=== PATIENT | male | born 1965 | race Caucasian/White ===

== ENCOUNTER 2016-06-28 11:06 | Inpatient (IN) ==
--- NOTE | 2016-06-28 11:21 | Emergency Department Note ---
Disposition Clinical Impression: History of pneumonia, Supratherapeutic INR, Dehydration GI bleed Qualifiers: Gastritis type: unspecified gastritis Anemia Qualifiers: Anemia type: unspecified type Qualified Code(s): D64.9 - Anemia, unspecified Pneumonia Qualifiers: Pneumonia type: due to unspecified organism Laterality: right Lung location: upper lobe of lung Qualified Code(s): J18.9 - Pneumonia, unspecified organism Disposition: Admitted As Inpatient Condition: Critical General Adult HPI - General Chief complaint: ED Nausea/Vomiting/Diarrhea Stated complaint: Vomiting blood Time Seen by Provider: 06/28/16 11:09 Source: patient, EMS Limitations: no limitations Nursing Notes Reviewed: Yes Vital Signs Reviewed: Yes - History of Present Illness HPI Narrative: 50-year-old male presents for evaluation of vomiting blood and dark stools. Patient states he has been having dark stools for the past 3 days. Yesterday started vomiting dark blood yesterday. Patient denies history of liver disease but has done that he quit drinking 2 years ago. Denies any chest pain or shortness breath. No abdominal pain. No fevers. Patient does state that he was recently seen seen in [place] where he had clots of the upper extremities and was started on Coumadin. Patient denies history of upper endoscopy and lower endoscopy. Patient denies any excessive NSAID use or history of ulcers. Pain Scale: 3 - Related Data Home Medications Medication Instructions Recorded Confirmed Creaon 4 tab PO QIDAC 06/02/15 06/03/16 Insulin Glargine [Lantus] 30 unit SQ HS 06/02/15 06/03/16 Omeprazole [PriLOSEC] 40 mg PO DAILY 06/02/15 06/03/16 Insulin LISPRO [HumaLOG] 4 units SQ TIDWM 05/10/16 06/03/16 Previous Rx's Medication Instructions Recorded Albuterol Sulfate [Albuterol 2 puff IH Q4HR PRN #1 hfa.aer.ad 06/03/15 Inhaler] Allergies Allergy/AdvReac Type Severity Reaction Status Date / Time No Known Allergies Allergy Verified 06/03/16 09:12 All systems ED: reviewed and negative except as stated. Constitutional: Reports: as per HPI. Denies: fever Eyes: Reports: as per HPI ENT ED: Reports: as per HPI Cardiovascular: Reports: as per HPI. Denies: chest pain Respiratory: Reports: as per HPI. Denies: cough, dyspnea Gastrointestinal: Reports: as per HPI, hematemesis, melena. Denies: abdominal pain, nausea, vomiting Genitourinary: Reports: as per HPI Musculoskeletal: Reports: as per HPI Integumentary: Reports: as per HPI Neurological: Reports: as per HPI. Denies: headache Psychiatric: Reports: as per HPI Endocrine: Reports: as per HPI Past Medical History - Past Medical History Medical history: Reports: COPD, diabetes, GERD, kidney stones, other Surgical history: Reports: other Psychiatric history: Reports: no psych history - Social History Smoking Status: Current every day smoker Smokeless Tobacco Status: No Alcohol use: Reports: heavy Drug use: Reports: none Physical Exam - General Limitations: no limitations General appearance: alert, in distress, other (Appears chronically ill and malnourished) - Head Head exam: normocephalic, normal inspection - Eye Eye exam: Present: normal appearance, EOMI - ENT ENT exam: normal exam, mucous membranes moist - Neck Neck exam: Present: normal inspection, trachea midline - Chest Chest inspection: Present: normal inspection, symmetric chest wall rise - Respiratory Respiratory exam: Present: normal lung sounds bilaterally. Absent: respiratory distress - Cardiovascular Cardiovascular exam: Present: regular rate, tachycardia - Abdominal Exam Abdominal exam: Present: soft, Non-Tender. Absent: distention, guarding - Rectal Exam Correctional Case Manager present during exam: Yes Rectal exam: Present: normal inspection, heme (+) stool. Absent: hemorrhoids, mass - Extremities Exam Extremities exam: Present: normal inspection. Absent: pedal edema - Expanded Lower Extremity Exam Hip/Pelvis exam: Present: normal inspection, tenderness Upper leg exam: Present: normal inspection Knee exam: Present: normal inspection Lower leg exam: Present: normal inspection Ankle exam: Present: normal inspection Foot/toe exam: Present: normal inspection Neurovascular/Tendon exam: Present: normal capillary refill - Back Exam Back exam: Present: normal inspection - Neurological Exam Neurological exam: Present: alert, oriented X3 - Skin Skin exam: Present: warm, dry, intact, normal color Course Course Narrative: Patient seen and examined. Patient appears to be hypotensive. Patient had gross blood in his stool as well as bright blood without clots. Patient is noted to be alert and mentating properly. Patient initially had difficult access with presentation. PICC team was able to establish a right upper extremity line. Patient is getting lab work, EKG, chest x-ray and attempt to get records from [facility] with recent past hospitalization. - Reevaluation(s) Reevaluation #1: Vascular access team has provided a right upper extremity PICC line. Time: 12:18 Reevaluation #2: Hgb 5.1. Will order PRBCs. Time: 12:24 Reevaluation #3: Patient sitting up in bed. No acute distress. Mentation appropriate responding to IV fluids. Time: 15:17 - Consultations Consultation #1: Spoke with Dr. Brewster who recommended reversal of anticoagulation and monitoring in the ICU. Time: 13:22 Consultation #2: Spoke with Dr. Carreno recommend Protonix drip as well as reversal anticoagulation Time: 13:28 Vital Signs Temperature 97.8 F 06/28/16 11:10 Pulse Rate 124 06/28/16 11:10 Respiratory Rate 17 06/28/16 11:10 Blood Pressure 87/51 06/28/16 11:10 O2 Sat by Pulse Oximetry 100 06/28/16 11:10 Temperature 97.5 F L 06/28/16 15:07 Pulse Rate 118 06/28/16 15:07 Respiratory Rate 18 06/28/16 15:07 Blood Pressure 89/60 06/28/16 15:07 O2 Sat by Pulse Oximetry 97 06/28/16 15:07 Oxygen Delivery Oxygen Delivery Nasal Cannula Procedures - IO Right Tibia Consent Obtained: verbal consent Time Out Performed: Yes Local Anesthetic: lidocaine 2% Amount of anesthesic used (mL): 2 IO Instrument Used to Penetrate the Cortex: battery powered IO drill Patient Tolerated Procedure: well, no complications Complications: none Medical Decision Making - MDM Narrative Medical decision making narrative: 50-year-old male presents after recent admission at [facility] for pneumonia. Patient states that he was admitted [facility] for pneumonia was on a ventilator for several days. Patient also notes he had upper chimney clots at that time. Patient is on adequate hydration with Coumadin. Patient does not follow-up with the primary care physician. Patient's been coming in with several days of GI signs and symptoms with blood dark tarry stools as well as dramatic emesis. Patient has not had any recent scopes upper or lower. Patient was found to be hypotensive on exam. Patient INR came back elevated reversal of anticoagulation is in process with FFP and IV vitamin K. Attempted to contact [facility] for records regarding this patient's recent hospitalization. Patient's records were reviewed prior hospitalization. The patient had sepsis pneumonia had a left upper extremity DVT possibly from midline placement patient has not had follow-up following that hospitalization his INR was elevated. Patient's pneumonia noted from records was in the right upper lobe. Patient had a bronch which ruled out tuberculosis from. 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 Patient's hemoglobin was 5.1. Patient's pain was addressed with mild versus of morphine in the emergency department. Patient has IV fluids. Ordered 3 units of PRBCs as well as for FFP. Protonic drip running. Patient does have a right upper EXT PICC as well as a right lower IO. Patient's blood pressure responded to fluids. Patient was also given a gram of Rocephin in the emergency department. I examined this patient and my medical decision-making was reviewed with the FEATHEREDGE MACHINE OPERATOR/PA/Advanced Practice Nurse/Resident Physician. I agree with the documented findings, disposition and treatment plan as described except to the extent set forth below. Patient presents today with vomiting of bloody [place] the last days also dark-colored stools. History of esophagitis and alcoholism in the past. He said he does not drink now. He is also on "" blood thinners for blood clots on his arms. He denies abdominal pain. He is pale. Blood pressure systolics in the 80s. Establish an IV IV fluids. Blood work CT of his abdomen. He will most likely need admission. He is a tough IV stick he said his last time that the vascular access team our nurses trying to do a bedside midline on him. - Medical Records Medical records reviewed: Yes I reviewed the patient's medical records. Records were obtained from [facility] - Lab Data Lab results reviewed: Yes I reviewed the patient's lab results. Result diagrams: 06/28/16 12:02 06/28/16 11:52 Lab Results 06/28/16 06/28/16 06/28/16 Range/Units 11:40 11:52 12:02 WBC 10.9 (4.3-11.1) K/mcL RBC 1.82 L (4.19-5.50) M/mcL Hgb 5.1 L* (12.9-16.9) g/dL Hct 16.3 L (37.5-50.1) % MCV 89.6 (83.0-100.0) fL MCH 28.0 (28.0-33.3) pg MCHC 31.3 L (31.6-35.5) g/dL RDW 14.5 (11.5-14.5) % Plt Count 571 H (140-400) K/mcL MPV 8.8 L (9.4-12.4) fL Immature Gran % 2.5 (0-4) % Seg Neutrophils % 58.3 % Lymphocytes % 31.3 % Monocytes % 7.0 % Eosinophils % 0.7 % Basophils % 0.2 % Neutrophils # 6.4 (1.6-8.9) K/mcL Lymphocytes # 3.4 (0.6-4.6) K/mcL Monocytes # 0.8 (0.0-1.3) K/mcL Eosinophils # 0.1 (0.0-0.6) K/mcL Basophils # 0.0 (0.0-0.2) K/mcL Polychromasia 1+ A (Not Present) Hypochromasia Present A (Not Present) PT (9.4-12.1) Seconds INR APTT (26.0-36.0) Seconds Sodium 133 L (136-145) mEq/L Potassium 4.9 H (3.5-4.5) mEq/L Chloride 104 (98-109) mEq/L Carbon Dioxide 20 (19-29) mEq/L BUN 31 H (8-26) mg/dL Creatinine 0.70 L (0.72-1.25) mg/dL Est GFR ( Amer) > 60 (> 60) Est GFR (Non-Af Amer) > 60 (> 60) BUN/Creatinine Ratio 44 H (6-26) Glucose 456 H (70-99) mg/dL Calculated Osmolality 302 H (280-300) Calcium 8.3 L (8.6-10.8) mg/dL Total Bilirubin 0.4 (0.2-1.2) mg/dL AST 8 (5-34) Units/L ALT 10 (0-55) Units/L Alkaline Phosphatase 133 H (38-126) Units/L Troponin I 0.01 (0-0.03) ng/mL Serum Total Protein 6.4 (6.0-8.3) g/dL Albumin 1.9 L (3.5-5.0) g/dL Globulin 4.5 H (2.4-3.5) g/dL Albumin/Globulin Ratio 0.4 L (1.1-2.2) Lipase < 4 L (8-78) Units/L Salicylates < 5.0 L (15-30) mg/dL Acetaminophen < 1.0 L (10-30) mcg/mL Ethyl Alcohol < 10 (0-10) mg/dL Blood Type Antibody Screen Crossmatch 06/28/16 06/28/16 Range/Units 12:02 12:02 WBC (4.3-11.1) K/mcL RBC (4.19-5.50) M/mcL Hgb (12.9-16.9) g/dL Hct (37.5-50.1) % MCV (83.0-100.0) fL MCH (28.0-33.3) pg MCHC (31.6-35.5) g/dL RDW (11.5-14.5) % Plt Count (140-400) K/mcL MPV (9.4-12.4) fL Immature Gran % (0-4) % Seg Neutrophils % % Lymphocytes % % Monocytes % % Eosinophils % % Basophils % % Neutrophils # (1.6-8.9) K/mcL Lymphocytes # (0.6-4.6) K/mcL Monocytes # (0.0-1.3) K/mcL Eosinophils # (0.0-0.6) K/mcL Basophils # (0.0-0.2) K/mcL Polychromasia (Not Present) Hypochromasia (Not Present) PT 172.0 H* (9.4-12.1) Seconds INR 14.7 H* APTT 148.5 H* (26.0-36.0) Seconds Sodium (136-145) mEq/L Potassium (3.5-4.5) mEq/L Chloride (98-109) mEq/L Carbon Dioxide (19-29) mEq/L BUN (8-26) mg/dL Creatinine (0.72-1.25) mg/dL Est GFR ( Amer) (> 60) Est GFR (Non-Af Amer) (> 60) BUN/Creatinine Ratio (6-26) Glucose (70-99) mg/dL Calculated Osmolality (280-300) Calcium (8.6-10.8) mg/dL Total Bilirubin (0.2-1.2) mg/dL AST (5-34) Units/L ALT (0-55) Units/L Alkaline Phosphatase (38-126) Units/L Troponin I (0-0.03) ng/mL Serum Total Protein (6.0-8.3) g/dL Albumin (3.5-5.0) g/dL Globulin (2.4-3.5) g/dL Albumin/Globulin Ratio (1.1-2.2) Lipase (8-78) Units/L Salicylates (15-30) mg/dL Acetaminophen (10-30) mcg/mL Ethyl Alcohol (0-10) mg/dL Blood Type A POSITIVE Antibody Screen NEGATIVE Crossmatch See Detail - Radiology Data Radiology results reviewed: Yes I reviewed the patient's radiology results. Chest X-Ray 06/28/16 11:16 IMPRESSION: Dense masslike consolidation within the right upper lobe. Given its persistence and appearance of cavitation on the current study, neoplasm is a concern. A CT of the chest with contrast is recommended to further evaluate. D/ / Barb Mehta Cha, MD / Barb Mehta Cha, MD Interpreting Provider: Barb Mehta Cha, MD Abdomen/Pelvis CT 06/28/16 12:45 IMPRESSION: 1. Moderate gastric distention with retained food products, fluid and contrast. No evidence of obstruction. The changes may be related to gastroparesis. 2. The pancreas is atrophic with multiple calcifications consistent with chronic pancreatitis. 3. Otherwise no acute findings within the abdomen or pelvis. D/ / Adalid Prado MD / Adalid Prado MD Interpreting Provider: Adalid Prado MD Chest X-Ray 06/28/16 11:16 IMPRESSION: Dense masslike consolidation within the right upper lobe. Given its persistence and appearance of cavitation on the current study, neoplasm is a concern. A CT of the chest with contrast is recommended to further evaluate. D/ / Barb Mehta Cha, MD / Barb Mehta Cha, MD Interpreting Provider: Barb Mehta Cha, MD Abdomen/Pelvis CT 06/28/16 12:45 IMPRESSION: 1. Moderate gastric distention with retained food products, fluid and contrast. No evidence of obstruction. The changes may be related to gastroparesis. 2. The pancreas is atrophic with multiple calcifications consistent with chronic pancreatitis. 3. Otherwise no acute findings within the abdomen or pelvis. D/ / 06/28/2016 14:28:54 Adalid Prado MD / Aura Mejía Interpreting Provider: Adalid Prado MD Chest CT 06/28/16 13:37 IMPRESSION: 1. Extensive emphysematous changes within the bilateral lung apices with large area of consolidation identified throughout the right hemithorax which contains multiple foci of necrosis/abscess formation compatible with necrotizing pneumonia. 2. Mediastinal and hilar lymphadenopathy, likely reactive. 3. Small right pleural effusion. 4. Volume loss is also identified on right with mild right mediastinal shift. 5. 0.9 x 1.4 cm lesion within the inferior aspect of the liver anteriorly which demonstrates CT characteristics most compatible with hepatic hemangioma. 6. Findings compatible with chronic pancreatitis. 7. The patient appears cachectic. 8. Fluid and contrast is identified within the esophagus predisposing patient for aspiration. D/ / Yobani Mercer MD / Yobani Mercer MD Interpreting Provider: Yobani Mercer MD - EKG Data EKG #1 EKG attestation: Yes I reviewed and interpreted this EKG. EKG shows normal: sinus rhythm Rate: tachycardia Rhythm: NSR [place]/QRS: normal Interpretation: no acute changes, unchanged when compared to prior tracing (date ) EKG #2 EKG attestation: Yes I reviewed and interpreted this EKG. EKG shows normal: sinus rhythm Rate: tachycardia Rhythm: NSR [place]/QRS: normal T wave inversions noted in: v1 Interpretation: no acute changes, unchanged when compared to prior tracing (date )
[2016-06-28] MEDS ORDERED: Ondansetron ODT 4 MG TAB.RAPDIS SL ONE (11:28)
[2016-06-28] MEDS ORDERED: 0.9 % Sodium Chloride 1,000 ML IV SCH (11:30)
[2016-06-28] MEDS ORDERED: Lidocaine 2% Syringe 100 MG/5 ML IVP ONE (11:36)
--- NOTE | 2016-06-28 11:49 | Emergency Department Note ---
Disposition Forms: ED Satisfaction Letter General Adult HPI - General Chief complaint: ED Nausea/Vomiting/Diarrhea Stated complaint: Vomiting blood Time Seen by Provider: 06/28/16 11:09 Source: patient, EMS Limitations: no limitations Nursing Notes Reviewed: Yes Vital Signs Reviewed: Yes - History of Present Illness Pain Scale: 3 - Related Data Home Medications Medication Instructions Recorded Confirmed Creaon 4 tab PO QIDAC 06/02/15 06/03/16 Insulin Glargine [Lantus] 30 unit SQ HS 06/02/15 06/03/16 Omeprazole [PriLOSEC] 40 mg PO DAILY 06/02/15 06/03/16 Insulin LISPRO [HumaLOG] 4 units SQ TIDWM 05/10/16 06/03/16 Previous Rx's Medication Instructions Recorded Albuterol Sulfate [Albuterol 2 puff IH Q4HR PRN #1 hfa.aer.ad 06/03/15 Inhaler] Allergies Allergy/AdvReac Type Severity Reaction Status Date / Time No Known Allergies Allergy Verified 06/03/16 09:12 Past Medical History - Past Medical History Medical history: Reports: COPD, diabetes, GERD, kidney stones, other Surgical history: Reports: other Psychiatric history: Reports: no psych history - Social History Smoking Status: Current every day smoker Smokeless Tobacco Status: No Alcohol use: Reports: heavy Drug use: Reports: none Physical Exam - General Limitations: no limitations General appearance: alert, in distress Course Vital Signs Temperature 97.8 F 06/28/16 11:10 Pulse Rate 124 06/28/16 11:10 Respiratory Rate 17 06/28/16 11:10 Blood Pressure 87/51 06/28/16 11:10 O2 Sat by Pulse Oximetry 100 06/28/16 11:10 Temperature 97.8 F 06/28/16 11:10 Pulse Rate 123 06/28/16 11:35 Respiratory Rate 18 06/28/16 11:35 Blood Pressure 65/45 06/28/16 11:35 O2 Sat by Pulse Oximetry 100 06/28/16 11:35 Oxygen Delivery Oxygen Delivery Nasal Cannula Medical Decision Making - MDM Narrative Medical decision making narrative: I examined this patient and my medical decision-making was reviewed with the PERCUSSION INSTRUCTOR/PA/Advanced Practice Nurse/Resident Physician. I agree with the documented findings, disposition and treatment plan as described except to the extent set forth below. I read this patient with Trudy Amezcua's evaluation management plan, [facility] patient's stay. Patient's had a vomiting but at least for 24 hours also dark-colored stool history of alcoholism pancreatitis and esophagitis. No abdominal pain at this time. Blood pressure is low and put an IO any vascular access team is here also to try to put a midline and intact. Were not successful with nursing staff placing an ultrasound-guided IV.
[2016-06-28 12:12] LABS: Alanine Aminotransferase 10 Units/L (0-55); Albumin 1.9 g/dL (3.5-5.0); Albumin/Globulin Ratio 0.4 (1.1-2.2); Alkaline Phosphatase 133 Units/L (38-126); Aspartate Amino Transferase 8 Units/L (5-34); BUN/Creatinine Ratio 44 (6-26); Bilirubin,Total 0.4 mg/dL (0.2-1.2); Blood Urea Nitrogen 31 mg/dL (8-26); Calcium 8.3 mg/dL (8.6-10.8); Carbon Dioxide 20 mEq/L (19-29); Chloride 104 mEq/L (98-109); Globulin 4.5 g/dL (2.4-3.5); Glucose 456 mg/dL (70-99); Osmolality,Calculated 302 (280-300); Potassium 4.9 mEq/L (3.5-4.5); Sodium 133 mEq/L (136-145); Total Protein 6.4 g/dL (6.0-8.3); eGFR For African Americans > 60 (> 60); eGFR For Non-African Americans > 60 (> 60)
[2016-06-28 12:13] LABS: Acetaminophen < 1.0 mcg/mL (10-30); Ethanol < 10 mg/dL (0-10); Lipase < 4 Units/L (8-78); Salicylate < 5.0 mg/dL (15-30)
[2016-06-28 12:15] LABS: Immature Granulocytes % 2.5 % (0-4)
[2016-06-28 12:17] LABS: Basophils % 0.2 %; Eosinophils # 0.1 K/mcL (0.0-0.6); Eosinophils % 0.7 %; Hematocrit 16.3 % (37.5-50.1); Lymphocytes # 3.4 K/mcL (0.6-4.6); Lymphocytes % 31.3 %; Mean Corpuscular HGB Conc 31.3 g/dL (31.6-35.5); Mean Corpuscular Volume 89.6 fL (83.0-100.0); Mean Platelet Volume 8.8 fL (9.4-12.4); Monocytes # 0.8 K/mcL (0.0-1.3); Neutrophils # 6.4 K/mcL (1.6-8.9); Platelet Count 571 K/mcL (140-400); Red Blood Count 1.82 M/mcL (4.19-5.50); Red Cell Distribution Width 14.5 % (11.5-14.5); Segmented Neutrophils % 58.3 %
[2016-06-28] MEDS ORDERED: Pantoprazole 80 MG in 0.9 % Sodium Chloride 50 ML IVPB ONE (12:21)
[2016-06-28 12:22] LABS: Hemoglobin 5.1 g/dL (12.9-16.9)
[2016-06-28 12:35] LABS: Hypochromasia Present (Not Present)
[2016-06-28 12:36] LABS: Polychromasia 1+ (Not Present)
[2016-06-28 12:40] LABS: Activated Partial Thrombo Time 148.5 Seconds (26.0-36.0); INR 14.7
[2016-06-28] MEDS ORDERED: Ondansetron 4 MG/2 ML VIAL IVP ONE (12:45)
[2016-06-28] MEDS ORDERED: *HR* Morphine 2 MG/ML SYRINGE IVP ONE ×2 (12:45→13:23)
--- NOTE | 2016-06-28 12:48 | Emergency Department Note ---
Disposition Clinical Impression: History of pneumonia, Supratherapeutic INR, Dehydration GI bleed Qualifiers: Gastritis type: alcoholic Anemia Qualifiers: Anemia type: unspecified type Qualified Code(s): D64.9 - Anemia, unspecified Disposition: Admitted As Inpatient Condition: Critical Referrals: NO,PCP [Primary Care Provider] - Forms: ED Satisfaction Letter General Adult HPI - General Chief complaint: ED Nausea/Vomiting/Diarrhea Stated complaint: Vomiting blood Time Seen by Provider: 06/28/16 11:09 Source: patient, EMS Limitations: no limitations Nursing Notes Reviewed: Yes Vital Signs Reviewed: Yes - History of Present Illness Pain Scale: 3 - Related Data Home Medications Medication Instructions Recorded Confirmed Creaon 4 tab PO QIDAC 06/02/15 06/03/16 Insulin Glargine [Lantus] 30 unit SQ HS 06/02/15 06/03/16 Omeprazole [PriLOSEC] 40 mg PO DAILY 06/02/15 06/03/16 Insulin LISPRO [HumaLOG] 4 units SQ TIDWM 05/10/16 06/03/16 Previous Rx's Medication Instructions Recorded Albuterol Sulfate [Albuterol 2 puff IH Q4HR PRN #1 hfa.aer.ad 06/03/15 Inhaler] Allergies Allergy/AdvReac Type Severity Reaction Status Date / Time No Known Allergies Allergy Verified 06/03/16 09:12 Constitutional: Reports: as per HPI. Denies: fever Eyes: Reports: as per HPI ENT ED: Reports: as per HPI Cardiovascular: Reports: as per HPI. Denies: chest pain Respiratory: Reports: as per HPI. Denies: cough, dyspnea Gastrointestinal: Reports: as per HPI, hematemesis, melena. Denies: abdominal pain, nausea, vomiting Genitourinary: Reports: as per HPI Musculoskeletal: Reports: as per HPI Integumentary: Reports: as per HPI Neurological: Reports: as per HPI. Denies: headache Psychiatric: Reports: as per HPI Endocrine: Reports: as per HPI Past Medical History - Past Medical History Medical history: Reports: COPD, diabetes, GERD, kidney stones, other Surgical history: Reports: other Psychiatric history: Reports: no psych history - Social History Smoking Status: Current every day smoker Smokeless Tobacco Status: No Alcohol use: Reports: heavy Drug use: Reports: none Physical Exam - General Limitations: no limitations General appearance: alert, in distress, other (Appears chronically ill and malnourished) Course Vital Signs Temperature 97.8 F 06/28/16 11:10 Pulse Rate 124 06/28/16 11:10 Respiratory Rate 17 06/28/16 11:10 Blood Pressure 87/51 06/28/16 11:10 O2 Sat by Pulse Oximetry 100 06/28/16 11:10 Temperature 97.8 F 06/28/16 11:10 Pulse Rate 116 06/28/16 14:16 Respiratory Rate 18 06/28/16 14:16 Blood Pressure 103/68 06/28/16 14:16 O2 Sat by Pulse Oximetry 98 06/28/16 14:16 Oxygen Delivery Oxygen Delivery Nasal Cannula Medical Decision Making - MDM Narrative Medical decision making narrative: 1240 hrs.: Patient's anemic. He has the GI bleed also. He did get a midline placed by vascular service. Pressures up in the 100s now. Regular for pain. He has an abnormality on his chest from the right side looks like an infiltrate. Waiting an radiologist that read. We will Chest X-Ray 06/28/16 11:16 IMPRESSION: Dense masslike consolidation within the right upper lobe. Given its persistence and appearance of cavitation on the current study, neoplasm is a concern. A CT of the chest with contrast is recommended to further evaluate. D/ / Barb Mehta Cha, MD / Barb Mehta Cha, MD Interpreting Provider: Barb Mehta Cha, MD 1200: discussed the case with GI to see if they can scope him today. Then if so , we do have an ICU bed and we can speak to the full stack engineer. If they determine that this needs to be transferred instead we will check on sending him to [place]. Patient also has an elevated INRs were in reverse that with blood products and vitamin K. 1300 hrs.: Received his old medical records from his last admission had [facility], he was there for sepsis, DKA, and a methicillin sensitive staph aureus pneumonia on the right side of his chest. He did not have any bleeding at that time that I can see in his records. I do not see any history of having a colonoscopy. We may still get other records from there. Review discuss him with the full stack engineer here to see if he they can keep him here at the hospital. He had a midline placed also had an IO on the right. IO was placed by Dr. Jacinto under my supervision. He is getting IV in about X this time. We added on a lactate, and blood cultures. 1330 hrs: ICU here for eval. Pt going to CT. Chest X-Ray 06/28/16 11:16 IMPRESSION: Dense masslike consolidation within the right upper lobe. Given its persistence and appearance of cavitation on the current study, neoplasm is a concern. A CT of the chest with contrast is recommended to further evaluate. D/ / Barb Mehta Cha, MD / Barb Mehta Cha, MD Interpreting Provider: Barb Mehta Cha, MD Abdomen/Pelvis CT 06/28/16 12:45 IMPRESSION: 1. Moderate gastric distention with retained food products, fluid and contrast. No evidence of obstruction. The changes may be related to gastroparesis. 2. The pancreas is atrophic with multiple calcifications consistent with chronic pancreatitis. 3. Otherwise no acute findings within the abdomen or pelvis. D/ / Adalid Prado MD / Adalid Prado MD Interpreting Provider: Adalid Prado MD 1430 hrs.: Patient is talking. Sitting upright. He says he feels better. He has [address] Waiting on his chest CT to be red. He has been accepted by the ICU team, GI has been consulted and they said they will see the patient in consult also. Impressions acute GI bleed, chronic alcoholism, pneumonia acute on chronic. Patient's critical care time excluding separately billable procedures is 70 minutes. Chest X-Ray 06/28/16 11:16 IMPRESSION: Dense masslike consolidation within the right upper lobe. Given its persistence and appearance of cavitation on the current study, neoplasm is a concern. A CT of the chest with contrast is recommended to further evaluate. D/ / Barb Mehta Cha, MD / Barb Mehta Cha, MD Interpreting Provider: Barb Mehta Cha, MD Abdomen/Pelvis CT 06/28/16 12:45 IMPRESSION: 1. Moderate gastric distention with retained food products, fluid and contrast. No evidence of obstruction. The changes may be related to gastroparesis. 2. The pancreas is atrophic with multiple calcifications consistent with chronic pancreatitis. 3. Otherwise no acute findings within the abdomen or pelvis. D/ / 06/28/2016 14:28:54 Adalid Prado MD / Aura Mejía Interpreting Provider: Adalid Prado MD Chest CT 06/28/16 13:37 IMPRESSION: 1. Extensive emphysematous changes within the bilateral lung apices with large area of consolidation identified throughout the right hemithorax which contains multiple foci of necrosis/abscess formation compatible with necrotizing pneumonia. 2. Mediastinal and hilar lymphadenopathy, likely reactive. 3. Small right pleural effusion. 4. Volume loss is also identified on right with mild right mediastinal shift. 5. 0.9 x 1.4 cm lesion within the inferior aspect of the liver anteriorly which demonstrates CT characteristics most compatible with hepatic hemangioma. 6. Findings compatible with chronic pancreatitis. 7. The patient appears cachectic. 8. Fluid and contrast is identified within the esophagus predisposing patient for aspiration. D/ / Yobani Mercer MD / Yobani Mercer MD Interpreting Provider: Yobani Mercer MD - Lab Data Result diagrams: 06/28/16 12:02 06/28/16 11:52 Lab Results 06/28/16 06/28/16 06/28/16 Range/Units 11:40 11:52 12:02 WBC 10.9 (4.3-11.1) K/mcL RBC 1.82 L (4.19-5.50) M/mcL Hgb 5.1 L* (12.9-16.9) g/dL Hct 16.3 L (37.5-50.1) % MCV 89.6 (83.0-100.0) fL MCH 28.0 (28.0-33.3) pg MCHC 31.3 L (31.6-35.5) g/dL RDW 14.5 (11.5-14.5) % Plt Count 571 H (140-400) K/mcL MPV 8.8 L (9.4-12.4) fL Immature Gran % 2.5 (0-4) % Seg Neutrophils % 58.3 % Lymphocytes % 31.3 % Monocytes % 7.0 % Eosinophils % 0.7 % Basophils % 0.2 % Neutrophils # 6.4 (1.6-8.9) K/mcL Lymphocytes # 3.4 (0.6-4.6) K/mcL Monocytes # 0.8 (0.0-1.3) K/mcL Eosinophils # 0.1 (0.0-0.6) K/mcL Basophils # 0.0 (0.0-0.2) K/mcL Polychromasia 1+ A (Not Present) Hypochromasia Present A (Not Present) PT (9.4-12.1) Seconds INR APTT (26.0-36.0) Seconds Sodium 133 L (136-145) mEq/L Potassium 4.9 H (3.5-4.5) mEq/L Chloride 104 (98-109) mEq/L Carbon Dioxide 20 (19-29) mEq/L BUN 31 H (8-26) mg/dL Creatinine 0.70 L (0.72-1.25) mg/dL Est GFR ( Amer) > 60 (> 60) Est GFR (Non-Af Amer) > 60 (> 60) BUN/Creatinine Ratio 44 H (6-26) Glucose 456 H (70-99) mg/dL Calculated Osmolality 302 H (280-300) Calcium 8.3 L (8.6-10.8) mg/dL Total Bilirubin 0.4 (0.2-1.2) mg/dL AST 8 (5-34) Units/L ALT 10 (0-55) Units/L Alkaline Phosphatase 133 H (38-126) Units/L Troponin I 0.01 (0-0.03) ng/mL Serum Total Protein 6.4 (6.0-8.3) g/dL Albumin 1.9 L (3.5-5.0) g/dL Globulin 4.5 H (2.4-3.5) g/dL Albumin/Globulin Ratio 0.4 L (1.1-2.2) Lipase < 4 L (8-78) Units/L Salicylates < 5.0 L (15-30) mg/dL Acetaminophen < 1.0 L (10-30) mcg/mL Ethyl Alcohol < 10 (0-10) mg/dL Blood Type Antibody Screen Crossmatch 06/28/16 06/28/16 Range/Units 12:02 12:02 WBC (4.3-11.1) K/mcL RBC (4.19-5.50) M/mcL Hgb (12.9-16.9) g/dL Hct (37.5-50.1) % MCV (83.0-100.0) fL MCH (28.0-33.3) pg MCHC (31.6-35.5) g/dL RDW (11.5-14.5) % Plt Count (140-400) K/mcL MPV (9.4-12.4) fL Immature Gran % (0-4) % Seg Neutrophils % % Lymphocytes % % Monocytes % % Eosinophils % % Basophils % % Neutrophils # (1.6-8.9) K/mcL Lymphocytes # (0.6-4.6) K/mcL Monocytes # (0.0-1.3) K/mcL Eosinophils # (0.0-0.6) K/mcL Basophils # (0.0-0.2) K/mcL Polychromasia (Not Present) Hypochromasia (Not Present) PT 172.0 H* (9.4-12.1) Seconds INR 14.7 H* APTT 148.5 H* (26.0-36.0) Seconds Sodium (136-145) mEq/L Potassium (3.5-4.5) mEq/L Chloride (98-109) mEq/L Carbon Dioxide (19-29) mEq/L BUN (8-26) mg/dL Creatinine (0.72-1.25) mg/dL Est GFR ( Amer) (> 60) Est GFR (Non-Af Amer) (> 60) BUN/Creatinine Ratio (6-26) Glucose (70-99) mg/dL Calculated Osmolality (280-300) Calcium (8.6-10.8) mg/dL Total Bilirubin (0.2-1.2) mg/dL AST (5-34) Units/L ALT (0-55) Units/L Alkaline Phosphatase (38-126) Units/L Troponin I (0-0.03) ng/mL Serum Total Protein (6.0-8.3) g/dL Albumin (3.5-5.0) g/dL Globulin (2.4-3.5) g/dL Albumin/Globulin Ratio (1.1-2.2) Lipase (8-78) Units/L Salicylates (15-30) mg/dL Acetaminophen (10-30) mcg/mL Ethyl Alcohol (0-10) mg/dL Blood Type A POSITIVE Antibody Screen NEGATIVE Crossmatch See Detail
[2016-06-28] MEDS ORDERED: Pantoprazole 40 MG in 0.9 % Sodium Chloride Mini Bag 100 ML IVC SCH (13:30)
[2016-06-28] MEDS ORDERED: Naloxone 0.4 MG/ML INJ IVP PRN (15:07)
[2016-06-28 15:48] LABS: Eosinophils % 0.1 %; Immature Granulocytes % 2.6 % (0-4); Lymphocytes # 3.2 K/mcL (0.6-4.6); Lymphocytes % 30.9 %; Mean Corpuscular HGB Conc 31.2 g/dL (31.6-35.5); Mean Corpuscular Hemoglobin 28.1 pg (28.0-33.3); Mean Corpuscular Volume 90.2 fL (83.0-100.0); Mean Platelet Volume 8.8 fL (9.4-12.4); Monocytes # 0.7 K/mcL (0.0-1.3); Monocytes % 6.6 %; Neutrophils # 6.2 K/mcL (1.6-8.9); Platelet Count 539 K/mcL (140-400); Red Blood Count 1.53 M/mcL (4.19-5.50); Red Cell Distribution Width 14.6 % (11.5-14.5); Segmented Neutrophils % 59.8 %
--- NOTE | 2016-06-28 15:51 | Pulmonology History & Physical ---
Addendum entered and electronically signed by Haroon Parkinson DO 06/29/16 13:54: - Attending Attestation This is a resident addendum: Please note that under the diagnoses supratherapeutic INR it should read "INR was 14.7 on admission"instead of hemoglobin. This was entered in error. Original Note: <Haroon Parkinson - Last Filed: 06/28/16 18:19> Date of Encounter: 06/28/16 Time of Encounter: 15:46 Assessment and Plan (1) Symptomatic anemia Current visit: Yes Status: Acute Patient presents with hemoglobin of 5.1, recheck is 4.3. Related to acute blood loss from GI sources in the setting of supratherapeutic INR. Patient has chest pain and shortness of breath. We will transfuse 3 units. Once the patient is more stable and his INR is improved he will likely need upper and lower endoscopy. GI is following. (2) Supratherapeutic INR Current visit: Yes Status: Acute Severe with active bleeding. Hemoglobin was 14.7 on presentation. Patient was given vitamin K, 2 units of fresh frozen plasma. Recheck was 2.3. Patient will be monitored closely. Coumadin is being held. (3) GI bleed Current visit: Yes Status: Acute Source unknown. Patient does have a history of gastric ulcers. Patient is having dark stools and dark vomit with bright red blood streaks through each so at this point the exact location is unknown. CT scan was negative for any obvious source of bleeding. (4) Healthcare-associated pneumonia Current visit: Yes Status: Acute Patient has large pneumonia on CT scan. Patient was recently hospitalized. Will treat for healthcare associated pneumonia. (5) Alcohol abuse Current visit: Yes Status: Acute Patient has long alcohol abuse history. He states his last use was prior to . He does state he had a history of DTs. We will place on CIWA protocol. (6) COPD (chronic obstructive pulmonary disease) Current visit: No Status: Chronic Does not appear to be in acute exacerbation. Will treat with antibiotics as discussed above for pneumonia and bronchodilators. (7) DVT prophylaxis Current visit: No Status: Acute Not indicated at this time due to acute blood loss anemia and supratherapeutic INR. History of Present Illness Chief complaint: Vomiting blood HPI: Mr. Thurman is a 50 year old male with history of alcohol abuse, upper extremity DVT who presents with vomiting blood and blood in the stool. He states this is been going on for several days. He states his blood is very dark with some bright red blood mixed in. He also reports coughing up blood. He states he was recently hospitalized for pneumonia at [facility] and was found to have a blood clot started on Coumadin. He was discharged approximately a week ago and has not had his INR checked since then. At the time of my exam the patient reports of chest pain, shortness of breath. He has not vomited or had bowel movement since arriving in the emergency department. Past Med Surg Social Fam HX - Past Medical History Medical history: COPD, diabetes, GERD, kidney stones, other Psychiatric history: no psych history - Past Surgical History Surgical History: other - Social History Smoking Status: Current every day smoker Smokeless Tobacco Status: No Alcohol use: heavy Drug use: none - Family History Daughter Adopted: No Living Status: Still Living Mother History Unknown: Yes Adopted: Yes Medications and Allergies Insulin Glargine [Lantus] 30 unit SQ QAM 06/02/15 [History] Omeprazole [PriLOSEC] 20 mg PO DAILY 06/02/15 [History] Albuterol Sulfate [Albuterol Inhaler] 2 puff IH Q4HR PRN #1 hfa.aer.ad 06/03/15 [Rx] Insulin LISPRO [HumaLOG] 6 - 8 units SQ TIDWM 05/10/16 [History] Aspirin [Lo-Dose Aspirin EC] 81 mg PO DAILY 06/28/16 [History] Carvedilol [Coreg] 3.125 mg PO BID 06/28/16 [History] Furosemide [Lasix] 20 mg PO DAILY PRN 06/28/16 [History] Lipase/Protease/Amylase [Jatin Dr 12,000 Units Capsule] 4 cap PO QIDAC 06/28/16 [History] Lisinopril [Zestril] 5 mg PO DAILY 06/28/16 [History] Simvastatin [Zocor] 10 mg PO DAILY 06/28/16 [History] Warfarin [Coumadin] 5 mg PO DAILY 06/28/16 [History] Allergies No Known Allergies Allergy (Verified 06/03/16 09:12) All Systems: A 10-system review of systems was performed and is negative for pertinent findings except as documented above in the HPI. - Constitutional Constitutional: weight loss (20 pounds), no chills, no fever(s) - EENT Nose, mouth and throat: no epistaxis, no nasal congestion, no nasal discharge - Cardiovascular Cardiovascular: chest pain, chest pain at rest, dyspnea, no edema, no irregular heart rhythm - Respiratory Respiratory: cough, dyspnea, hemoptysis, dyspnea on exertion, no wheezing - Gastrointestinal Gastrointestinal: hematemesis, hematochezia, melena, nausea, vomiting, no abdominal pain - Genitourinary Genitourinary: no hematuria, no urinary frequency, no urinary hesitancy, no urinary incontinence - Musculoskeletal Musculoskeletal: no weakness, no numbness, no tingling - Hematologic/Lymphatic Hematologic/Lymphatic: easy bleeding, easy bruising Physical Examination Vital Signs: Vital Signs, Last 4 Hours Temp Pulse Resp BP Pulse Ox 06/28/16 15:28 18 89/60 06/28/16 15:07 97.5 F L 118 18 89/60 97 06/28/16 14:56 118 18 87/59 96 06/28/16 14:52 97.7 F 118 18 87/59 General appearance: no acute distress ENT: oropharynx moist Effort: normal Auscultation: bilateral: rhonchi Cardiovascular: other (Regular rhythm, tachycardia.) Gastrointestinal: hypoactive bowel sounds, soft, non-tender, non-distended Extremities: no cyanosis, no edema, no clubbing, cool, other (Ashen appearing) normal mental status, non-focal exam Results - Laboratory Findings CBC and BMP: 06/28/16 17:55 06/28/16 11:52 PT/INR, D-dimer PT 172.0 Seconds (9.4-12.1) H* 06/28/16 12:02 Abnormal lab findings: Abnormal lab results RBC 1.82 M/mcL (4.19-5.50) L 06/28/16 12:02 Hgb 5.1 g/dL (12.9-16.9) L* 06/28/16 12:02 Hct 16.3 % (37.5-50.1) L 06/28/16 12:02 MCHC 31.3 g/dL (31.6-35.5) L 06/28/16 12:02 Plt Count 571 K/mcL (140-400) H 06/28/16 12:02 MPV 8.8 fL (9.4-12.4) L 06/28/16 12:02 Polychromasia 1+ (Not Present) A 06/28/16 12:02 Hypochromasia Present (Not Present) A 06/28/16 12:02 PT 172.0 Seconds (9.4-12.1) H* 06/28/16 12:02 INR 14.7 H* 06/28/16 12:02 APTT 148.5 Seconds (26.0-36.0) H* 06/28/16 12:02 Sodium 133 mEq/L (136-145) L 06/28/16 11:52 Potassium 4.9 mEq/L (3.5-4.5) H 06/28/16 11:52 BUN 31 mg/dL (8-26) H 06/28/16 11:52 Creatinine 0.70 mg/dL (0.72-1.25) L 06/28/16 11:52 BUN/Creatinine Ratio 44 (6-26) H 06/28/16 11:52 Glucose 456 mg/dL (70-99) H 06/28/16 11:52 POC Glucose 432 (58-89) H* 06/28/16 15:31 Calculated Osmolality 302 (280-300) H 06/28/16 11:52 Calcium 8.3 mg/dL (8.6-10.8) L 06/28/16 11:52 Alkaline Phosphatase 133 Units/L (38-126) H 06/28/16 11:52 Albumin 1.9 g/dL (3.5-5.0) L 06/28/16 11:52 Globulin 4.5 g/dL (2.4-3.5) H 06/28/16 11:52 Albumin/Globulin Ratio 0.4 (1.1-2.2) L 06/28/16 11:52 Lipase < 4 Units/L (8-78) L 06/28/16 11:52 Salicylates < 5.0 mg/dL (15-30) L 06/28/16 11:52 Acetaminophen < 1.0 mcg/mL (10-30) L 06/28/16 11:52 <Dorothy Brewster M - Last Filed: 06/28/16 22:11> History of Present Illness HPI: Mr. Thurman is a 50 year old male All Systems: A 10-system review of systems was performed and is negative for pertinent findings except as documented above in the HPI. Physical Examination Vital Signs: Vital Signs, Last 4 Hours Temp Pulse Resp BP Pulse Ox 06/28/16 20:58 98.6 F 06/28/16 20:00 98 06/28/16 19:00 99 20 83/57 100 06/28/16 18:56 97.6 F 104 20 89/59 96 06/28/16 18:49 97.6 F 97 20 87/57 99 06/28/16 18:39 97.6 F 104 20 89/59 06/28/16 18:30 97.6 F 104 20 89/59 96 06/28/16 18:15 97.6 F 102 20 89/59 Results - Laboratory Findings CBC and BMP: 06/28/16 17:55 06/28/16 11:52 PT/INR, D-dimer PT 25.8 Seconds (9.4-12.1) H 06/28/16 17:55 Abnormal lab findings: Abnormal lab results RBC 2.30 M/mcL (4.19-5.50) L 06/28/16 17:55 Hgb 7.1 g/dL (12.9-16.9) L D 06/28/16 17:55 Hct 21.5 % (37.5-50.1) L 06/28/16 17:55 RDW 15.1 % (11.5-14.5) H 06/28/16 17:55 MPV 8.5 fL (9.4-12.4) L 06/28/16 17:55 Dohle Bodies Present (Not Present) A 06/28/16 17:55 Platelet Estimate Slight increase (Normal) H 06/28/16 17:55 Polychromasia 2+ (Not Present) A 06/28/16 17:55 Hypochromasia Present (Not Present) A 06/28/16 17:55 Microcytosis Present (Not Present) A 06/28/16 17:55 PT 25.8 Seconds (9.4-12.1) H 06/28/16 17:55 APTT 148.5 Seconds (26.0-36.0) H* 06/28/16 12:02 Sodium 133 mEq/L (136-145) L 06/28/16 11:52 Potassium 4.9 mEq/L (3.5-4.5) H 06/28/16 11:52 BUN 31 mg/dL (8-26) H 06/28/16 11:52 Creatinine 0.70 mg/dL (0.72-1.25) L 06/28/16 11:52 BUN/Creatinine Ratio 44 (6-26) H 06/28/16 11:52 Glucose 456 mg/dL (70-99) H 06/28/16 11:52 POC Glucose 398 (58-89) H 06/28/16 20:18 Calculated Osmolality 302 (280-300) H 06/28/16 11:52 Calcium 8.3 mg/dL (8.6-10.8) L 06/28/16 11:52 Phosphorus 5.3 mg/dL (2.3-4.7) H 06/28/16 15:42 Magnesium 1.5 mg/dL (1.6-2.6) L 06/28/16 15:42 Alkaline Phosphatase 133 Units/L (38-126) H 06/28/16 11:52 Albumin 1.9 g/dL (3.5-5.0) L 06/28/16 11:52 Globulin 4.5 g/dL (2.4-3.5) H 06/28/16 11:52 Albumin/Globulin Ratio 0.4 (1.1-2.2) L 06/28/16 11:52 Lipase < 4 Units/L (8-78) L 06/28/16 11:52 Salicylates < 5.0 mg/dL (15-30) L 06/28/16 11:52 Acetaminophen < 1.0 mcg/mL (10-30) L 06/28/16 11:52 - Attending Attestation I examined this patient and my medical decision-making was reviewed with the DRUG ENFORCEMENT AGENT/PA/Advanced Practice Nurse/Resident Physician. I agree with the documented findings, disposition and treatment plan as described except to the extent set forth below. Patient seen and examined. Labs, radiology, chart personally reviewed. 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 He needs to be on bronchodilators and antibiotics for his pneumonia. Cardiovascular: BP is responding to blood and blood products transfusion. GI: Nutrition per dietary and GI prophylaxis per routine. Patient will NPO. Discussed with Dr. Dukes and plan for endoscopy tomorrow. Patient on Protonix.His CT shows distension of his stomach and suspect chronic pancreatitis. Heme: DVT prophylaxis per routine. Patient has severe anemia and clinically he is pale, suspect GI bleed and need to have rapid transfusion. I feel patient has significant blood loss and with his coagulapathy, which was treated with vit K and FFP. Patient records indicate he had clots in his arms and reversing his anticoagulation could get his clots worse. ID: Continue antibiotics and plan to de-escalation Renal; urine out put and renal funtion reviewed Endorcine: blood glucose is monitored Lines: all lines checked and no evidence of infections. Patient has limited access and femoral line was place. Skin: skin care to prevent pressure ulcers per nursing routine care I spent 40 min of Critical Care time with this patient. It involved decision making of high complexity to assess, manipulate, and support vital organ system failure and/or to prevent further life threatening deterioration of the patient' s condition. The time involved in the performance of separately reportable procedures was not counted toward critical care time.
[2016-06-28 15:52] LABS: Hematocrit 13.8 % (37.5-50.1); Hemoglobin 4.3 g/dL (12.9-16.9)
[2016-06-28] MEDS ORDERED: 0.9 % Sodium Chloride 1,000 ML ONE (15:56)
[2016-06-28 15:59] LABS: Magnesium 1.5 mg/dL (1.6-2.6); Phosphorous 5.3 mg/dL (2.3-4.7)
[2016-06-28 16:07] LABS: INR 2.6; Prothrombin Time 28.4 Seconds (9.4-12.1)
[2016-06-28 16:26] LABS: Hypochromasia Present (Not Present); Polychromasia 2+ (Not Present)
[2016-06-28 16:27] LABS: Dohle Bodies Present (Not Present); Microcytosis Present (Not Present)
[2016-06-28] MEDS ORDERED: FLU VACC QS2016-17 36MOS UP/PF 0.5 ML SYRINGE IM ONE (16:38)
[2016-06-28] MEDS ORDERED: D5% in Water 1,000 ML IV PRN (16:49)
[2016-06-28] MEDS ORDERED: Dextrose Gel 15 GM PO PRN ×2 (16:49)
[2016-06-28] MEDS ORDERED: Vancomycin 750 MG in D5% in Water 250 ML IVPB SCH (17:00)
[2016-06-28] MEDS ORDERED: Vancomycin 1,000 MG in D5% in Water 250 ML IVPB ONE (17:09)
[2016-06-28 18:10] LABS: Basophils % 0.3 %; Eosinophils % 0.1 %; Hematocrit 21.5 % (37.5-50.1); INR 2.3; Immature Granulocytes % 2.9 % (0-4); Lymphocytes # 2.7 K/mcL (0.6-4.6); Lymphocytes % 36.4 %; Mean Corpuscular Hemoglobin 30.9 pg (28.0-33.3); Mean Corpuscular Volume 93.5 fL (83.0-100.0); Mean Platelet Volume 8.5 fL (9.4-12.4); Monocytes # 0.6 K/mcL (0.0-1.3); Monocytes % 8.2 %; Neutrophils # 3.8 K/mcL (1.6-8.9); Platelet Count 394 K/mcL (140-400); Prothrombin Time 25.8 Seconds (9.4-12.1); Red Cell Distribution Width 15.1 % (11.5-14.5); Segmented Neutrophils % 52.1 %
[2016-06-28 18:13] LABS: Hemoglobin 7.1 g/dL (12.9-16.9)
[2016-06-28] MEDS ORDERED: *HR* LORazepam 2 MG/ML VIAL IVP PRN ×3 (18:29)
[2016-06-28] MEDS ORDERED: Ipratropium/Albuterol Neb 3 ML IH PRN (18:30)
[2016-06-28 18:31] LABS: Polychromasia 2+ (Not Present)
[2016-06-28 18:32] LABS: Dohle Bodies Present (Not Present); Hypochromasia Present (Not Present)
[2016-06-28 18:33] LABS: Microcytosis Present (Not Present)
[2016-06-28] MEDS: Pantoprazole 40 MG VIAL IVP SCH (18:37)
--- NOTE | 2016-06-28 19:06 | Procedure Note ---
<Haroon Parkinson - Last Filed: 06/28/16 19:01> Date of procedure: 06/28/16 Pre-op diagnosis: Lack of IV access, acute hemorrhage Post-op diagnosis: same Procedure: The procedure is considered emergent. Written consent was obtained from the patient. The right femoral vein was surveyed using the ultrasound and deemed to be a suitable target. The area was cleaned and draped in the usual sterile fashion. Under ultrasound the introducer needle was passed into the right femoral vein. Dark red nonpulsatile blood flow was returned. The guidewire was visualized in the femoral vein using ultrasound. The guidewire was passed through the introducer needle without resistance. The needle was removed. A chung in the skin using a scalpel was made. The dilator was passed over the guidewire and the soft tissues were dilated. The catheter was then passed over the guidewire and advanced into the femoral vein. The guidewire was removed intact. All 3 ports were tested and shown to draw blood and flushed easily. The line was sutured in place. Sterile dressing was applied. The patient tolerated the procedure well, there were no immediate complications. The attending physician, Dr. Brewster, was present and supervised the entire procedure. Surgeon: Haroon Parkinson Estimated blood loss (cc): 5 IV fluids (cc): 15 Pathology: none sent Condition: critical Disposition: ICU <Dorothy Brewster - Last Filed: 06/28/16 22:12> Procedure: I have personally supervised Dr. Parkinson placing right femoral line for this patient for hemorrhagic bleeding. Commercial Finance Analyst: Dorothy Brewster
[2016-06-28] MEDS: Erythromycin Lactobionate 250 MG in 0.9 % Sodium Chloride 100 ML IVPB SCH (19:08)
[2016-06-28] MEDS: Thiamine (B-1) 100 MG, Folic Acid 1 MG, MVI, adult with vitamin K 10 ML in 0.9 % Sodi... IV SCH (19:09)
[2016-06-28] MEDS ORDERED: Insulin DETEMIR 100 UNIT/ML X5UNITS SQ SCH (21:00)
[2016-06-28] MEDS ORDERED: Budesonide/Formoterol 160/4.5 MDI IH SCH (22:00)
[2016-06-28] MEDS: Insulin LISPRO 300 UNITS/3 ML VIAL SQ SCH (22:36)
[2016-06-29] MEDS: Insulin LISPRO 300 UNITS/3 ML VIAL SQ SCH ×6 (01:06→20:49)
[2016-06-29] MEDS: Piperacillin/Tazobactam 3.375 GM in D5% in Water (Mini-Bag+) 100 ML IVPB SCH ×4 (01:16→23:44)
[2016-06-29] MEDS: *HR* Dextrose 50 % in Water (Syg) 50 ML SYRINGE IVP PRN ×2 (01:20→04:30)
[2016-06-29 01:54] LABS: Ionized Calcium 1.09 mmol/L (1.15-1.35)
[2016-06-29] MEDS ORDERED: 0.9 % Sodium Chloride 500 ML ONE (01:55)
[2016-06-29] MEDS ORDERED: *HR* Morphine 2 MG/ML SYRINGE IVP PRN (02:02)
[2016-06-29 02:03] LABS: Alanine Aminotransferase 11 Units/L (0-55); Albumin/Globulin Ratio 0.5 (1.1-2.2); Alkaline Phosphatase 102 Units/L (38-126); Aspartate Amino Transferase 16 Units/L (5-34); BUN/Creatinine Ratio 40 (6-26); Bilirubin,Total 0.7 mg/dL (0.2-1.2); Blood Urea Nitrogen 22 mg/dL (8-26); Calcium 7.7 mg/dL (8.6-10.8); Carbon Dioxide 21 mEq/L (19-29); Chloride 109 mEq/L (98-109); Globulin 3.7 g/dL (2.4-3.5); Glucose 159 mg/dL (70-99); Magnesium 1.4 mg/dL (1.6-2.6); Osmolality,Calculated 289 (280-300); Sodium 136 mEq/L (136-145); Total Protein 5.7 g/dL (6.0-8.3); eGFR For African Americans > 60 (> 60); eGFR For Non-African Americans > 60 (> 60)
[2016-06-29 02:04] LABS: Phosphorous 2.1 mg/dL (2.3-4.7); Potassium 3.8 mEq/L (3.5-4.5)
[2016-06-29] MEDS: Erythromycin Lactobionate 250 MG in 0.9 % Sodium Chloride 100 ML IVPB SCH (02:17)
[2016-06-29 03:02] LABS: Hematocrit 26.8 % (37.5-50.1); Mean Corpuscular Hemoglobin 29.7 pg (28.0-33.3); Mean Corpuscular Volume 87.6 fL (83.0-100.0); Mean Platelet Volume 8.3 fL (9.4-12.4); Platelet Count 369 K/mcL (140-400); Red Blood Count 3.06 M/mcL (4.19-5.50); Red Cell Distribution Width 14.6 % (11.5-14.5)
[2016-06-29 03:05] LABS: Hemoglobin 9.1 g/dL (12.9-16.9)
[2016-06-29 03:23] LABS: Eosinophils # 0.3 K/mcL (0.0-0.6); Lymphocytes # 1.6 K/mcL (0.6-4.6); Monocytes # 0.3 K/mcL (0.0-1.3)
[2016-06-29 03:24] LABS: Large Platelets Present (Not Present); Platelet Estimate Normal (Normal); Polychromasia 1+ (Not Present); Reactive Lymphocytes Present (Not Present)
[2016-06-29 05:19] LABS: INR 1.5; Prothrombin Time 16.7 Seconds (9.4-12.1)
[2016-06-29] MEDS: Pantoprazole 40 MG VIAL IVP SCH ×2 (05:21→17:02)
[2016-06-29 05:22] LABS: Eosinophils # 0.1 K/mcL (0.0-0.6); Hematocrit 28.7 % (37.5-50.1); Hemoglobin 9.9 g/dL (12.9-16.9); Mean Corpuscular HGB Conc 34.5 g/dL (31.6-35.5); Mean Platelet Volume 8.1 fL (9.4-12.4); Nucleated Red Blood Cells 0.6 /100 WBC (0); Platelet Count 316 K/mcL (140-400); Red Cell Distribution Width 14.3 % (11.5-14.5)
[2016-06-29] MEDS ORDERED: Vancomycin 750 MG in D5% in Water 250 ML IVPB SCH (05:30)
[2016-06-29 05:31] LABS: Alanine Aminotransferase 11 Units/L (0-55); Albumin/Globulin Ratio 0.5 (1.1-2.2); Alkaline Phosphatase 97 Units/L (38-126); Aspartate Amino Transferase 20 Units/L (5-34); BUN/Creatinine Ratio 41 (6-26); Bilirubin,Total 0.8 mg/dL (0.2-1.2); Blood Urea Nitrogen 19 mg/dL (8-26); Calcium 7.6 mg/dL (8.6-10.8); Carbon Dioxide 23 mEq/L (19-29); Chloride 111 mEq/L (98-109); Globulin 3.5 g/dL (2.4-3.5); Glucose 74 mg/dL (70-99); Osmolality,Calculated 285 (280-300); Potassium 3.4 mEq/L (3.5-4.5); Sodium 137 mEq/L (136-145); Total Protein 5.3 g/dL (6.0-8.3); eGFR For African Americans > 60 (> 60); eGFR For Non-African Americans > 60 (> 60)
[2016-06-29 05:40] LABS: Albumin 1.8 g/dL (3.5-5.0)
[2016-06-29 05:48] LABS: Lymphocytes # 1.8 K/mcL (0.6-4.6); Neutrophils # 4.5 K/mcL (1.6-8.9)
[2016-06-29 05:49] LABS: Platelet Estimate Normal (Normal); Polychromasia 2+ (Not Present); Reactive Lymphocytes Present (Not Present)
[2016-06-29] MEDS ORDERED: *HR* Midazolam HCl 5 MG/5 ML VIAL IVP PRN (07:27)
[2016-06-29] MEDS ORDERED: Tetracaine/Benzocaine/Butamben 200MG/SPRAY (100SPY/BOT) MM ONE (07:27)
[2016-06-29] MEDS ORDERED: *HR* FentaNYL (PF) 100 MCG/2 ML VIAL IVP PRN (07:27)
[2016-06-29] MEDS: Thiamine (B-1) 100 MG, Folic Acid 1 MG, MVI, adult with vitamin K 10 ML in 0.9 % Sodi... IV SCH (07:37)
[2016-06-29] MEDS ORDERED: *HR* Promethazine 25 MG/ML VIAL IVP ONE (07:42)
[2016-06-29] MEDS ORDERED: 0.9 % Sodium Chloride 1,000 ML ONE (08:00)
[2016-06-29] MEDS ORDERED: Levofloxacin 750 MG/150 ML 750 MG/150 ML BAG IVPB SCH (09:00)
[2016-06-29] MEDS ORDERED: D5% in Water 1,000 ML IV PRN (09:21)
[2016-06-29] MEDS ORDERED: Dextrose Gel 15 GM PO PRN ×2 (09:21)
[2016-06-29] MEDS ORDERED: *HR* Dextrose 50 % in Water (Syg) 50 ML SYRINGE IVP PRN (09:21)
[2016-06-29] MEDS ORDERED: *HR* LORazepam 2 MG/ML VIAL IVP PRN ×3 (09:21)
[2016-06-29] MEDS ORDERED: Ipratropium/Albuterol Neb 3 ML IH PRN (09:21)
[2016-06-29] MEDS ORDERED: Naloxone 0.4 MG/ML INJ IVP PRN (09:21)
--- NOTE | 2016-06-29 09:29 | Pulmonology Progress Note ---
Addendum entered and electronically signed by Haroon Parkinson DO 06/29/16 13:54: Please note that under the diagnosis #2 supratherapeutic INR and it should read "INR was 14.7 on presentation" the statement "hemoglobin was 14.7 on presentation" was entered in error. Addendum entered and electronically signed by Haroon Parkinson DO 06/29/16 12:43: Sign out was provided to the admitting hospitalist, Dr. Tucker, who accepted the patient for admission. Original Note: <Haroon Parkinson - Last Filed: 06/29/16 09:25> Date of Encounter: 06/29/16 Time of Encounter: 09:29 Assessment and Plan (1) Symptomatic anemia Current Visit: Yes Status: Acute Patient presents with hemoglobin of 5.1, recheck was 4.3 yesterday. Today after 5 units his hemoglobin was 9.9. He is still having black bloody stools. Patient had an EGD that was unremarkable for source of bleeding. We will continue to monitor CBC and transfuse as necessary. (2) Supratherapeutic INR Current Visit: Yes Status: Acute Severe with active bleeding. Hemoglobin was 14.7 on presentation. Patient was given vitamin K, 3 units of fresh frozen plasma. Recheck was 2.3. Given the quick drop it is possible that the initial INR was a lab error. Patient will be monitored closely. Coumadin is being held. (3) GI bleed Current Visit: Yes Status: Acute Source unknown. Patient does have a history of gastric ulcers, however there is no ulcers on EGD today. Patient is still having dark bloody stools. GI is following and plan for colonoscopy tomorrow. Qualifiers: GI bleed type/associated pathology: unspecified gastrointestinal hemorrhage type Qualified Code(s): K92.2 - Gastrointestinal hemorrhage, unspecified (4) Healthcare-associated pneumonia Current Visit: Yes Status: Acute Patient has large pneumonia on CT scan. Patient was recently hospitalized. Will treat for healthcare associated pneumonia. (5) Alcohol abuse Current Visit: Yes Status: Acute Patient has long alcohol abuse history. He states his last use was prior to . He does state he had a history of DTs. No evidence of withdrawal at this time. We will continue on CIWA protocol. (6) COPD (chronic obstructive pulmonary disease) Current Visit: No Status: Chronic Does not appear to be in acute exacerbation. Will treat with antibiotics as discussed above for pneumonia and bronchodilators. Qualifiers: COPD type: unspecified COPD Qualified Code(s): J44.9 - Chronic obstructive pulmonary disease, unspecified (7) DVT prophylaxis Current Visit: No Status: Acute Pharmacologic prophylaxis is not indicated at this time due to acute blood loss anemia and supratherapeutic INR. We will continue with the EPCD's. Subjective Principal diagnosis: GI bleed Interval history: Patient seen and examined at bedside today. Patient states he feels better. He does report some mild low back pain. Overnight he had 2 bowel movements that were dark red and black. He denies any vomiting. He denies any bleeding from anywhere else. This chest pain has resolved. Objective PUL Vital signs: Last Vital Signs Temp 97.9 F 06/29/16 07:43 Pulse 90 06/29/16 09:02 Resp 10 06/29/16 09:02 BP 114/75 06/29/16 09:02 Pulse Ox 100 06/29/16 09:02 General appearance: no acute distress ENT: oropharynx moist Effort: normal Auscultation: right: rhonchi Cardiovascular: regular rate and rhythm Gastrointestinal: hypoactive bowel sounds, soft, non-tender, non-distended Extremities: no cyanosis, no edema, no clubbing normal mental status, non-focal exam Results - Laboratory Findings CBC and BMP: 06/29/16 05:00 06/29/16 05:00 PT/INR, D-dimer PT 16.7 Seconds (9.4-12.1) H 06/29/16 05:00 Abnormal lab findings: Abnormal lab results RBC 3.30 M/mcL (4.19-5.50) L 06/29/16 05:00 Hgb 9.9 g/dL (12.9-16.9) L D 06/29/16 05:00 Hct 28.7 % (37.5-50.1) L 06/29/16 05:00 MPV 8.1 fL (9.4-12.4) L 06/29/16 05:00 Band Neutrophils % 10.0 % (0-4) H 06/29/16 05:00 Nucleated RBCs/100 WBC 0.6 /100 WBC (0) H 06/29/16 05:00 Reactive Lymphocytes Present (Not Present) A 06/29/16 05:00 Dohle Bodies Present (Not Present) A 06/28/16 17:55 Large Platelets Present (Not Present) A 06/28/16 02:56 Polychromasia 2+ (Not Present) A 06/29/16 05:00 Hypochromasia Present (Not Present) A 06/28/16 17:55 Microcytosis Present (Not Present) A 06/28/16 17:55 PT 16.7 Seconds (9.4-12.1) H 06/29/16 05:00 APTT 148.5 Seconds (26.0-36.0) H* 06/28/16 12:02 Potassium 3.4 mEq/L (3.5-4.5) L 06/29/16 05:00 Chloride 111 mEq/L (98-109) H 06/29/16 05:00 Creatinine 0.46 mg/dL (0.72-1.25) L 06/29/16 05:00 BUN/Creatinine Ratio 41 (6-26) H 06/29/16 05:00 POC Glucose 111 (58-89) H 06/29/16 07:03 Calcium 7.6 mg/dL (8.6-10.8) L 06/29/16 05:00 Ionized Calcium 1.09 mmol/L (1.15-1.35) L 06/29/16 01:40 Phosphorus 2.1 mg/dL (2.3-4.7) L D 06/29/16 01:40 Magnesium 1.4 mg/dL (1.6-2.6) L 06/29/16 01:40 Serum Total Protein 5.3 g/dL (6.0-8.3) L 06/29/16 05:00 Albumin 1.8 g/dL (3.5-5.0) L 06/29/16 05:00 Albumin/Globulin Ratio 0.5 (1.1-2.2) L 06/29/16 05:00 Lipase < 4 Units/L (8-78) L 06/28/16 11:52 Salicylates < 5.0 mg/dL (15-30) L 06/28/16 11:52 Acetaminophen < 1.0 mcg/mL (10-30) L 06/28/16 11:52 - Clinical Findings Intake & Output: Intake & Output 06/28/16 06/29/16 06/29/16 23:59 07:59 15:59 Intake Total 2439 / 2439 2615.2 / 2615.2 Output Total 1114 / 1114 1400 / 1400 Balance 1325 / 1325 1215.2 / 1215.2 Weight 48.5 kg 48.5 kg - VTE Reasons for not Prescribing Prophylaxis: Not indicated-Anticoagulated or INR therapeutic Consult Discharge Plan - Plan Referrals: NO,PCP [Primary Care Provider] - <Dorothy Brewster - Last Filed: 06/29/16 21:01> Objective PUL Vital signs: Last Vital Signs Temp 99.9 F H 06/29/16 20:24 Pulse 97 06/29/16 20:24 Resp 16 06/29/16 20:24 BP 124/81 06/29/16 20:24 Pulse Ox 95 06/29/16 20:24 Results - Laboratory Findings CBC and BMP: 06/29/16 05:00 06/29/16 05:00 PT/INR, D-dimer PT 16.7 Seconds (9.4-12.1) H 06/29/16 05:00 Abnormal lab findings: Abnormal lab results RBC 3.30 M/mcL (4.19-5.50) L 06/29/16 05:00 Hgb 9.9 g/dL (12.9-16.9) L D 06/29/16 05:00 Hct 28.7 % (37.5-50.1) L 06/29/16 05:00 MPV 8.1 fL (9.4-12.4) L 06/29/16 05:00 Band Neutrophils % 10.0 % (0-4) H 06/29/16 05:00 Nucleated RBCs/100 WBC 0.6 /100 WBC (0) H 06/29/16 05:00 Reactive Lymphocytes Present (Not Present) A 06/29/16 05:00 Dohle Bodies Present (Not Present) A 06/28/16 17:55 Large Platelets Present (Not Present) A 06/28/16 02:56 Polychromasia 2+ (Not Present) A 06/29/16 05:00 Hypochromasia Present (Not Present) A 06/28/16 17:55 Microcytosis Present (Not Present) A 06/28/16 17:55 PT 16.7 Seconds (9.4-12.1) H 06/29/16 05:00 APTT 148.5 Seconds (26.0-36.0) H* 06/28/16 12:02 Potassium 3.4 mEq/L (3.5-4.5) L 06/29/16 05:00 Chloride 111 mEq/L (98-109) H 06/29/16 05:00 Creatinine 0.46 mg/dL (0.72-1.25) L 06/29/16 05:00 BUN/Creatinine Ratio 41 (6-26) H 06/29/16 05:00 POC Glucose 380 (58-89) H 06/29/16 20:21 Calcium 7.6 mg/dL (8.6-10.8) L 06/29/16 05:00 Ionized Calcium 1.09 mmol/L (1.15-1.35) L 06/29/16 01:40 Phosphorus 2.1 mg/dL (2.3-4.7) L D 06/29/16 01:40 Magnesium 1.4 mg/dL (1.6-2.6) L 06/29/16 01:40 Serum Total Protein 5.3 g/dL (6.0-8.3) L 06/29/16 05:00 Albumin 1.8 g/dL (3.5-5.0) L 06/29/16 05:00 Albumin/Globulin Ratio 0.5 (1.1-2.2) L 06/29/16 05:00 Lipase < 4 Units/L (8-78) L 06/28/16 11:52 Salicylates < 5.0 mg/dL (15-30) L 06/28/16 11:52 Acetaminophen < 1.0 mcg/mL (10-30) L 06/28/16 11:52 - Clinical Findings Intake & Output: Intake & Output 06/29/16 06/29/16 06/29/16 07:59 15:59 23:59 Intake Total 2615.2 / 2615.2 120 / 120 730 / 730 Output Total 1400 / 1400 925 / 925 700 / 700 Balance 1215.2 / 1215.2 -805 / -805 30 / 30 Weight 48.5 kg - Attending Attestation I examined this patient and my medical decision-making was reviewed with the SURGICAL INSTRUMENT MAKER/PA/Advanced Practice Nurse/Resident Physician. I agree with the documented findings, disposition and treatment plan as described except to the extent set forth below. Patient seen and examined. Labs, radiology, chart personally reviewed. 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 Continue antibiotics for his penumonia. Patient had bronchoscopy already at [facility]. Cardiovascular: stable GI: Nutrition per dietary and GI prophylaxis per routine.Gi is following up. Heme: DVT prophylaxis per routine. Patient has blood clot, however he is not compliant and he already proved anticoagulation could be life threatening for him and risk of anticoagulation outweigh the benefit in my opinion. ID: Continue antibiotics and plan to de-escalation Renal; urine out put and renal funtion reviewed Endorcine: blood glucose is monitored Lines: all lines checked and no evidence of infections Skin: skin care to prevent pressure ulcers per nursing routine care Patient transferred to the floor.
--- NOTE | 2016-06-29 09:47 | Electrocardiograph Report ---
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
--- NOTE | 2016-06-29 10:01 | Electrocardiograph Report ---
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
[2016-06-29] MEDS ORDERED: Calcium Gluconate 2,000 MG in D5% in Water 100 ML IVPB ONE (10:37)
[2016-06-29] MEDS ORDERED: Magnesium Sulfate 2 GM in D5% in Water 100 ML IVPB ONE (10:37)
[2016-06-29] MEDS: Budesonide/Formoterol 160/4.5 MDI IH SCH ×2 (11:09→21:18)
[2016-06-29] MEDS: *HR* Morphine 2 MG/ML SYRINGE IVP PRN ×2 (13:35→20:45)
--- NOTE | 2016-06-29 14:07 | Gastroenterology Consult Note ---
<MontenegroHaroon palma Soni - Last Filed: 06/29/16 14:05> Date of Encounter: 06/29/16 Time of Encounter: 10:20 - Assessment and plan (1) Anemia Current Visit: Yes Status: Acute Assessment and plan: Secondary to GI bleed. Hgb 5.1 and on recheck was 4.3. After 5 units PRBC Hgb 9.9 this AM. Continue to monitor CBC and transfuse as needed. Qualifiers: Anemia type: unspecified type Qualified Code(s): D64.9 - Anemia, unspecified (2) GI bleed Current Visit: Yes Status: Acute Assessment and plan: Pt with melena. EGD completed today which showed salmon-colored mucosa suggestive of long segment Cespedes's esophagus, two nonbleeding angioectasias in the duodenum treated with laser coagulation, and duodenitis. Plan for colonoscopy tomorrow. Clear liquid diet today, no red or purple. NPO at midnight. If unable tolerate NuLytely please use MiraLAX prep. If not clear by 6 AM, give 2 tap water enemas. Qualifiers: GI bleed type/associated pathology: unspecified gastrointestinal hemorrhage type Qualified Code(s): K92.2 - Gastrointestinal hemorrhage, unspecified (3) Alcohol abuse Current Visit: Yes Status: Acute Assessment and plan: Pt started on CIWA protocol for history of alcohol abuse. (4) Supratherapeutic INR Current Visit: Yes Status: Acute Assessment and plan: INR on admission 14.7 and this AM 1.5. Continue to hold Coumadin. - Time Spent With Patient Total time spent is greater than 50% in coordination of care (as documented) at patient's floor/unit and/or counseling patient: GI History of Present Illness - Data of Consult Patient: new to practice Consult date: 06/29/16 Requesting Physician: Hali Oates MD - Consult Narrative Reason for consult: GI Bleed History of present illness: Mr. Thurman is a 50 year old male with PMHx of COPD, DM, GERD, alcohol abuse, uper extremity DVT who presented with melena and hematemesis, which had been going on for several days prior to presentation. The blood was very dark per pt report with some bright red blood mixed in. He states he was recently hospitalized for pneumonia at [facility] and was found to have a blood clot started on Coumadin. He was discharged approximately a week ago and has not had his INR checked since then. On admission, INR 14.3, after Vitamin K and FFP his INR was 1.5 this AM. Coumadin and ASA on hold. Hgb 5.1 on presentation with recheck of 4.3. Pt has received a total of 5 units PRBC and Hgb this AM was 9.9. CT A/P negative for source of bleeding. He has a long history of alcohol abuse, and he states his last use was before . Procedures: None NSAIDs: ASA Anticoagulation: Coumadin Past Med Surg Social Fam HX - Past Medical History Medical history: COPD, diabetes, GERD, kidney stones, other Psychiatric history: no psych history - Past Surgical History Surgical History: other - Social History Smoking Status: Current every day smoker Packs per day: 4 cigarettes per day Smokeless Tobacco Status: No Alcohol use: heavy Drug use: none - Family History Mother History Unknown: Yes Adopted: Yes Daughter Adopted: [place]: Josefa Age: 25 Living Status: Still Living Hx Family Cardiac Disorders: No Hx Family Respiratory Disorders: No Hx Family Cancer: No Hx Family GI Disorders: No Hx Family Genitourinary Disorders: No Hx Family Endocrine Disorder: No Hx Family Musculoskeletal Disorders: No Hx Family Neuromuscular Disorders: No Hx Family Neurologic Disorders: No Hx Family HEENT Disorders: No Hx Family Autoimmune Disorders: No Hx Family Reproductive Disorders: No Hx Family Psychosocial Disorders: No Hx Family Medical Disorders: No - Gastrointestinal Gastrointestinal: Present: as per HPI - Constitutional Constitutional: as per HPI - EENT Eyes: as per HPI Ears: Present: as per HPI Nose, mouth and throat: Present: as per HPI - Cardiovascular Cardiovascular ROS: Present: as per HPI - Respiratory Respiratory IM: Present: as per HPI - Genitourinary Genitourinary: Absent: change in color, Urinary frequency - Neurological ROS Neurological GI: Present: as per HPI - Hematologic/Lymphatic Hematologic/Lymphatic pediatric: Present: as per HPI - Musculoskeletal Musculoskeletal ROS GI: Present: as per HPI - Integumentary Integumentary GI: Present: as per HPI - Psychiatric ROS Psychiatric GI: Present: as per HPI - Endocrine Endocrine IM: Present: as per HPI - Constitutional Vitals: Temp Pulse Resp BP Pulse Ox 97.7 F 91 14 123/77 100 06/29/16 11:30 06/29/16 11:04 06/29/16 11:11 06/29/16 11:04 06/29/16 11:11 General appearance: Present: cooperative, A&O X 3, no acute distress, answers questions appropriately - Head Head exam: Present: atraumatic, normocephalic - Eye Eye exam: Present: normal appearance, sclera anicteric - ENT ENT exam: Present: mucous membranes dry - Neck Neck exam general surgery: Present: normal inspection, trachea midline - Respiratory Respiratory exam: Present: CTAB. Absent: rales, rhonchi - Cardiovascular Cardiovascular exam: Present: RRR, +S1, +S2 - GI/Abdominal GI/Abdominal exam: Present: soft, no peritoneal signs. Absent: distended, firm , guarding, tenderness - Rectal Rectal exam: Present: deferred - Extremities Exam Extremities exam: Present: warm - Neurological Exam Neurological exam: Present: no focal deficits - Psychiatric Psychiatric exam: Present: normal affect, normal mood - Skin Skin exam: Present: dry, intact, normal color, warm Results - Labs CBC & Chem 7: 06/29/16 05:00 06/29/16 05:00 Labs: Last Result Calcium 7.6 mg/dL (8.6-10.8) L 06/29/16 05:00 Troponin I 0.01 ng/mL (0-0.03) 06/28/16 11:40 Salicylates < 5.0 mg/dL (15-30) L 06/28/16 11:52 Entire Visit Hgb 9.9 g/dL (12.9-16.9) L D 06/29/16 05:00 Hct 28.7 % (37.5-50.1) L 06/29/16 05:00 PT 16.7 Seconds (9.4-12.1) H 06/29/16 05:00 Total Bilirubin 0.8 mg/dL (0.2-1.2) 06/29/16 05:00 AST 20 Units/L (5-34) 06/29/16 05:00 ALT 11 Units/L (0-55) 06/29/16 05:00 Lipase < 4 Units/L (8-78) L 06/28/16 11:52 Acetaminophen < 1.0 mcg/mL (10-30) L 06/28/16 11:52 - ABG ABG results: PT/INR, D-dimer PT 16.7 Seconds (9.4-12.1) H 06/29/16 05:00 Consult Discharge Plan - Plan Referrals: NO,PCP [Primary Care Provider] - <Jacqueline Dukes - Last Filed: 06/30/16 08:29> Date of Encounter: 07/08/16 - Time Spent With Patient Total time spent is greater than 50% in coordination of care (as documented) at patient's floor/unit and/or counseling patient: GI History of Present Illness - Data of Consult Requesting Physician: Hali Oates MD - Consult Narrative History of present illness: Mr. Thurman is a 50 year old male - Constitutional Vitals: Temp Pulse Resp BP Pulse Ox 98.2 F 87 16 101/67 97 06/30/16 06:55 06/30/16 06:55 06/30/16 06:55 06/30/16 06:55 06/30/16 06:55 Results - Labs CBC & Chem 7: 06/29/16 05:00 06/29/16 05:00 Labs: Last Result Calcium 7.6 mg/dL (8.6-10.8) L 06/29/16 05:00 Troponin I 0.01 ng/mL (0-0.03) 06/28/16 11:40 Salicylates < 5.0 mg/dL (15-30) L 06/28/16 11:52 Entire Visit Hgb 9.9 g/dL (12.9-16.9) L D 06/29/16 05:00 Hct 28.7 % (37.5-50.1) L 06/29/16 05:00 PT 16.7 Seconds (9.4-12.1) H 06/29/16 05:00 Total Bilirubin 0.8 mg/dL (0.2-1.2) 06/29/16 05:00 AST 20 Units/L (5-34) 06/29/16 05:00 ALT 11 Units/L (0-55) 06/29/16 05:00 Lipase < 4 Units/L (8-78) L 06/28/16 11:52 Acetaminophen < 1.0 mcg/mL (10-30) L 06/28/16 11:52 - ABG ABG results: PT/INR, D-dimer PT 16.7 Seconds (9.4-12.1) H 06/29/16 05:00
[2016-06-29] MEDS: Vancomycin 750 MG in D5% in Water 250 ML IVPB SCH (16:51)
[2016-06-29] MEDS ORDERED: SODIUM CHLORIDE/NAHCO3/KCL/PEG 4,000 ML SOLN.RECON PO ONE (17:00)
[2016-06-30] MEDS: *HR* Morphine 2 MG/ML SYRINGE IVP PRN ×5 (01:20→23:37)
[2016-06-30] MEDS: Insulin LISPRO 300 UNITS/3 ML VIAL SQ SCH ×5 (04:43→21:46)
[2016-06-30] MEDS: Pantoprazole 40 MG VIAL IVP SCH ×2 (05:58→17:10)
[2016-06-30] MEDS: Vancomycin 750 MG in D5% in Water 250 ML IVPB SCH ×2 (05:59→17:07)
[2016-06-30] MEDS ORDERED: Potassium Phosphate 44 MEQ in 0.9 % Sodium Chloride 250 ML IVPB ONE (07:42)
[2016-06-30] MEDS: Budesonide/Formoterol 160/4.5 MDI IH SCH ×2 (08:12→20:08)
[2016-06-30] MEDS ORDERED: *HR* Midazolam HCl 5 MG/5 ML VIAL IVP ONE (08:12)
[2016-06-30] MEDS ORDERED: *HR* FentaNYL (PF) 100 MCG/2 ML VIAL ONE (08:13)
[2016-06-30] MEDS ORDERED: *HR* FentaNYL (PF) 100 MCG/2 ML VIAL IVP PRN (08:29)
[2016-06-30] MEDS ORDERED: *HR* Midazolam HCl 5 MG/5 ML VIAL IVP PRN (08:29)
[2016-06-30] MEDS ORDERED: Simethicone 40 MG/0.6 ML MLS IR ONE (08:29)
--- NOTE | 2016-06-30 08:30 | Pre-Sedation Evaluation ---
Pre-sedation evaluation - Pre-sedation checklist Date of procedure: 06/28/16 Recent Vitals: Last Vital Signs Temp 98.2 F 06/30/16 06:55 Pulse 87 06/30/16 06:55 Resp 16 06/30/16 06:55 BP 101/67 06/30/16 06:55 Pulse Ox 97 06/30/16 06:55 ASA Classification *see protocol: CLASS II-Mild systemic disease Plan of Care: Pt appropriate candidate for procedure/moderate/conscious sedation , Risks/benefits of procedure/sedation discussed w/ patient/family
[2016-06-30] MEDS ORDERED: Thiamine (B-1) 100 MG, Folic Acid 1 MG, MVI, adult with vitamin K 10 ML in 0.9 % Sodi... IV SCH (09:00)
[2016-06-30] MEDS: Piperacillin/Tazobactam 3.375 GM in D5% in Water (Mini-Bag+) 100 ML IVPB SCH ×3 (12:02→23:38)
[2016-06-30] MEDS: Levofloxacin 750 MG/150 ML 750 MG/150 ML BAG IVPB SCH (13:23)
--- NOTE | 2016-06-30 14:02 | Internal Med Progress Note ---
Date of Encounter: 06/30/16 Time of Encounter: 14:02 - Assessment and plan (1) Symptomatic anemia Current Visit: Yes Status: Acute Assessment and plan: Patient feeling better today. Hemoglobin levels remained stable compared to yesterday. No new episodes of GI bleeding. Advance diet as tolerated. (2) GI bleed Current Visit: Yes Status: Acute Assessment and plan: No clear source. Upper GI endoscopy done yesterday. Patient has Cespedes's esophagus and nonbleeding angiectasia. Also underwent colonoscopy today with resection of polyps but no clear source of bleeding. Continue Protonix. Qualifiers: GI bleed type/associated pathology: unspecified gastrointestinal hemorrhage type Qualified Code(s): K92.2 - Gastrointestinal hemorrhage, unspecified (3) Alcohol abuse Current Visit: Yes Status: Acute Assessment and plan: No signs of withdrawal. (4) Supratherapeutic INR Current Visit: Yes Status: Acute Assessment and plan: INR was 1.5 yesterday. Much improved. Coumadin is on hold for GI bleed. (5) DVT prophylaxis Current Visit: No Status: Acute Assessment and plan: With SCDs (6) Pancreatitis Current Visit: No Status: Acute Assessment and plan: Patient has history of chronic pancreatitis. He was on Creon previously. We will resume this medication as patient's diet is advanced. Qualifiers: Chronicity: chronic Pancreatitis type: alcohol induced Qualified Code(s) : K86.0 - Alcohol-induced chronic pancreatitis (7) COPD (chronic obstructive pulmonary disease) Current Visit: No Status: Chronic Assessment and plan: Currently not in acute exacerbation. Continue Symbicort and use DuoNeb nebs as needed. Qualifiers: COPD type: emphysema Emphysema type: panlobular Qualified Code(s): J43.1 - Panlobular emphysema (8) DVT of upper extremity (deep vein thrombosis) Current Visit: Yes Status: Acute Assessment and plan: Patient was apparently recently diagnosed with deep vein thrombosis of the upper extremity. Unclear which extremity was involved. We will repeat venous Dopplers and also request records from previous hospital stay. Qualifiers: Affected thrombotic vein of extremity: unspecified vein of extremity Laterality: unspecified laterality Chronicity: unspecified Qualified Code(s) : I82.629 - Acute embolism and thrombosis of deep veins of unspecified upper extremity (9) Healthcare-associated pneumonia Current Visit: Yes Status: Acute Assessment and plan: Patient has consolidation involving his inferior right lobe. He was recently treated for pneumonia during his previous hospitalization. Will obtain records from that stay. The patient could be having residual consolidation from his previous pneumonia. We will obtain records from the prior hospital. In the meantime continue IV antibiotics. - Subjective Interval history: Recent underwent colonoscopy today. He has not had further episodes of hematemesis or melena. Denies any new complaints at this time. No pain. No shortness of breath. - Constitutional Vitals: Temp Pulse Resp BP Pulse Ox 98.3 F 96 18 118/76 92 L 06/30/16 10:30 06/30/16 10:30 06/30/16 10:30 06/30/16 10:30 06/30/16 10:30 General appearance: Present: cooperative, A&O X 3, pleasant, no acute distress, answers questions appropriately - Respiratory Respiratory exam: Present: CTAB. Absent: accessory muscle use, rales, rhonchi, wheezes - Cardiovascular Cardiovascular exam: Present: RRR, +S1, +S2. Absent: diastolic murmur, gallop, rubs, systolic murmur - GI/Abdominal GI/Abdominal exam: Present: normal bowel sounds, soft, no peritoneal signs. Absent: distended, tenderness - Extremities Exam Extremities exam: Present: warm, radial pulses palpable and symetrical. Absent : calf tenderness, cyanotic, pedal edema - Neurological Exam Neurological exam: Present: oriented X3, no focal deficits, strengths equal and symetr throughout. Absent: facial droop, speech deficit Internal Medicine: Result - Labs CBC & Chem 7: 06/29/16 05:00 06/29/16 05:00 - ABG Interpretation ABG results: PT/INR, D-dimer PT 16.7 Seconds (9.4-12.1) H 06/29/16 05:00 - VTE Reasons for not Prescribing Prophylaxis: Not indicated-Anticoagulated or INR therapeutic Consult Discharge Plan - Plan Referrals: NO,PCP [Primary Care Provider] - - Attending Attestation This document has been at least partially created by [employer] recognition technology by Dr. Oates. Errors in grammar, wording or other phrases may exist. If errors are found after the documentation is signed, they will be addressed individually in the addendum section of this document when appropriate.
[2016-07-01] MEDS: Insulin LISPRO 300 UNITS/3 ML VIAL SQ SCH ×3 (01:23→08:16)
[2016-07-01 04:21] LABS: Basophils % 0.5 %; Eosinophils # 0.1 K/mcL (0.0-0.6); Eosinophils % 1.3 %; Hematocrit 29.6 % (37.5-50.1); Hemoglobin 10.1 g/dL (12.9-16.9); Immature Granulocytes % 1.9 % (0-4); Lymphocytes # 2.5 K/mcL (0.6-4.6); Lymphocytes % 31.6 %; Mean Corpuscular HGB Conc 34.1 g/dL (31.6-35.5); Mean Corpuscular Hemoglobin 30.5 pg (28.0-33.3); Mean Corpuscular Volume 89.4 fL (83.0-100.0); Mean Platelet Volume 8.1 fL (9.4-12.4); Monocytes # 0.7 K/mcL (0.0-1.3); Platelet Count 342 K/mcL (140-400); Red Blood Count 3.31 M/mcL (4.19-5.50); Red Cell Distribution Width 15.5 % (11.5-14.5); Segmented Neutrophils % 55.7 %
[2016-07-01 04:37] LABS: BUN/Creatinine Ratio 7 (6-26); Calcium 7.6 mg/dL (8.6-10.8); Carbon Dioxide 24 mEq/L (19-29); Chloride 104 mEq/L (98-109); Glucose 293 mg/dL (70-99); Osmolality,Calculated 284 (280-300); Potassium 3.9 mEq/L (3.5-4.5); Sodium 133 mEq/L (136-145); eGFR For African Americans > 60 (> 60); eGFR For Non-African Americans > 60 (> 60)
[2016-07-01 04:40] LABS: Blood Urea Nitrogen 4 mg/dL (8-26)
[2016-07-01 04:57] LABS: Neutrophils # 4.5 K/mcL (1.6-8.9)
[2016-07-01 04:58] LABS: Platelet Estimate Normal (Normal); Reactive Lymphocytes Present (Not Present)
[2016-07-01] MEDS: *HR* Morphine 2 MG/ML SYRINGE IVP PRN ×2 (05:06→10:53)
[2016-07-01] MEDS: Vancomycin 750 MG in D5% in Water 250 ML IVPB SCH (05:07)
[2016-07-01] MEDS: Pantoprazole 40 MG VIAL IVP SCH (05:07)
[2016-07-01 07:50] VITALS: BP 127/74
[2016-07-01] MEDS: Piperacillin/Tazobactam 3.375 GM in D5% in Water (Mini-Bag+) 100 ML IVPB SCH (08:13)
[2016-07-01] MEDS: Levofloxacin 750 MG/150 ML 750 MG/150 ML BAG IVPB SCH (08:15)
--- NOTE | 2016-07-01 09:20 | Discharge Summary ---
Date of Encounter: 07/01/16 Time of Encounter: 08:35 - Discharge Diagnosis (1) Symptomatic anemia Priority: Primary Status: Acute (2) GI bleed Priority: Secondary Status: Acute Qualifiers: GI bleed type/associated pathology: unspecified gastrointestinal hemorrhage type Qualified Code(s): K92.2 - Gastrointestinal hemorrhage, unspecified (3) Alcohol abuse Priority: Secondary Status: Acute (4) Supratherapeutic INR Priority: Secondary Status: Acute (5) DVT prophylaxis Priority: Secondary Status: Acute (6) Pancreatitis Priority: Secondary Status: Acute Qualifiers: Chronicity: chronic Pancreatitis type: alcohol induced Qualified Code(s) : K86.0 - Alcohol-induced chronic pancreatitis (7) COPD (chronic obstructive pulmonary disease) Priority: Secondary Status: Chronic Qualifiers: COPD type: emphysema Emphysema type: panlobular Qualified Code(s): J43.1 - Panlobular emphysema (8) DVT of upper extremity (deep vein thrombosis) Priority: Secondary Status: Resolved Qualifiers: Affected thrombotic vein of extremity: unspecified vein of extremity Laterality: bilateral Chronicity: acute Qualified Code(s): I82.623 - Acute embolism and thrombosis of deep veins of upper extremity, bilateral (9) Healthcare-associated pneumonia Priority: Secondary Status: Acute - Discharge Medications Prescriptions: Amoxicillin/Clavulanate [Augmentin] 875 mg PO BIDWM #20 tablet Budesonide/Formoterol 160/4.5 [Symbicort 160/4.5] 2 puff IH BIDR #1 inhaler Doxycycline Hyclate 100 mg PO BID #20 capsule Insulin Glargine,Hum.rec.anlog [Lantus Solostar] 20 unit SQ DAILY #1 insuln.pen Omeprazole [PriLOSEC] 40 mg PO DAILY #60 cap Home Medications: Albuterol Sulfate [Albuterol Inhaler] 2 puff IH Q4HR PRN #1 hfa.aer.ad 06/03/15 [Rx] Insulin LISPRO [HumaLOG] 6 - 8 units SQ TIDWM 05/10/16 [History] Aspirin [Lo-Dose Aspirin EC] 81 mg PO DAILY 06/28/16 [History] Carvedilol [Coreg] 3.125 mg PO BID 06/28/16 [History] Furosemide [Lasix] 20 mg PO DAILY PRN 06/28/16 [History] Lipase/Protease/Amylase [Jatin Richards 12,000 Units Capsule] 4 cap PO QIDAC 06/28/16 [History] Lisinopril [Zestril] 5 mg PO DAILY 06/28/16 [History] Simvastatin [Zocor] 10 mg PO DAILY 06/28/16 [History] Amoxicillin/Clavulanate [Augmentin] 875 mg PO BIDWM #20 tablet 07/01/16 [Rx] Budesonide/Formoterol 160/4.5 [Symbicort 160/4.5] 2 puff IH BIDR #1 inhaler 01/08 [Rx] Doxycycline Hyclate 100 mg PO BID #20 capsule 07/01/16 [Rx] Insulin Glargine,Hum.rec.anlog [Lantus Solostar] 20 unit SQ DAILY #1 insuln.pen 07/01/16 [Rx] Omeprazole [PriLOSEC] 40 mg PO DAILY #60 cap 07/01/16 [Rx] Allergies/Adverse Reactions: Allergies No Known Allergies Allergy (Verified 06/03/16 09:12) Procedures/tests Complete & Pending: Procedures Performed prior 72 hours Category Date Time Status Venous Doppler [EV venous imaging UE BI] Stat Y 06/30/16 13:54 Completed Date of admission: 06/28/16 14:41 Primary care physician: PCP NO Consults: 06/28/16 15:07 Consult to Gastroenterology [CONS] Routine Consulting Provider: Gastroenterology Sheri Reason for Consult: GI Bleed Call Completed: Yes 06/28/16 16:23 Consult to Nutrition [CONS] Routine Comment: Consulting Provider: NUTRITION Reason for Dietary Consult: Supplemental Nutrition 06/28/16 16:25 Consult to Game Programer [CONS] Routine Reason for SW Consult: recently unemployed, home O2 and financial concerns. Discharging clinician: Hali Oates Anticipated date of discharge: 07/01/16 - Patient Status Disposition: Home, Self-Care Condition: Good Functional capacity at discharge: independent ambulation Overall status at discharge: patient is progressing back to baseline - Discharge Instructions Instructions: Anemia (GEN), Diabetes Mellitus Type 2 in Adults (DC) Follow Up With: NO,PCP [Primary Care Provider] - (Follow up with PCP in one week) Dorothy Brewster MD [Partnered Physician] - (In 1-2 weeks for COPD) Jacqueline Dukes MD [Partnered Physician] - (In 1-2 weeks for follow-up results on colonoscopy and EGD biopsy) - Diet and Activity Activity: increase activity as tolerated, wear oxygen at all times Diet: diabetic diet, low salt diet, other ([place] diet, diabetic and low-salt) Hospital course: Mr. Thurman is a 50 year old male with history of alcohol abuse, tobacco abuse and recently diagnosed bilateral upper extremity deep vein thrombosis was admitted here for upper GI bleed. Patient had been having episodes of hematemesis and melena. His INR was supratherapeutic on presentation. His hemoglobin level was 9.7 initially but dropped out 5.1 with recurrent hematemesis. He was admitted to the ICU and treated with blood transfusion, IV Protonix. He then underwent an upper GI endoscopy which did not show any acute bleeding. Patient did have nonbleeding angiectasia and Cespedes's esophagus. P after patient stabilized with his hemoglobin levels, he was transferred out of ICU to [facility] floor. Patient underwent colonoscopy which again did not show any acute bleeding. Patient's INR was corrected with fresh frozen plasma. Patient's Coumadin was held. He is now on no longer having any bleeding episodes. His hemoglobin levels have stabilized. This morning his hemoglobin level was 10.1. A venous Doppler of his bilateral upper extremities done here did not reveal any deep vein thrombosis. As such, his Coumadin is being stopped. At this time is stable to be discharged home. He needs to follow up with his primary care physician for further management of his chronic medical conditions. He will also follow up with gastroenterology for his best Cespedes' s esophagus and for the results of his upper GI endoscopy and colonoscopy biopsies. Patient does have diabetes mellitus and takes insulin at home. He did have intermittently low blood sugars. Insulin use and likely due to his chronic alcohol use and possible lack of glycogen stores along with his chronic pancreatitis. As such his insulin dosage being decreased. Patient does have chronic respiratory failure and hypoxia and uses home oxygen. Patient was also recently diagnosed with pneumonia and was on antibiotics at home. Imaging here revealed consistent consolidation and she was treated here with intravenous broad-spectrum antibiotics. He will complete an antibiotic course at home. His blood cultures have been negative here. - Time Spent with Patient Total time spent providing and/or coordinating discharge services: Greater than 30 minutes (35 min) - Constitutional Vitals: Temp Pulse Resp BP Pulse Ox 98.2 F 86 18 127/74 94 L 07/01/16 07:39 07/01/16 07:39 07/01/16 07:39 07/01/16 07:39 07/01/16 07:39 General appearance: Present: cooperative, A&O X 3, pleasant, no acute distress, answers questions appropriately - Neck Neck exam general surgery: Present: supple, trachea midline. Absent: lymphadenopathy - Respiratory Respiratory exam: Present: CTAB. Absent: accessory muscle use, rales, rhonchi, wheezes - GI/Abdominal GI/Abdominal exam: Present: normal bowel sounds, soft, no peritoneal signs. Absent: distended, tenderness - Extremities Exam Extremities exam: Present: warm, radial pulses palpable and symetrical. Absent : calf tenderness, cyanotic, pedal edema - Neurological Exam Neurological exam: Present: CN II-XII intact, oriented X3, no focal deficits. Absent: facial droop, speech deficit - Skin Skin exam: Present: dry, intact, pallor - VTE Reasons for not Prescribing Prophylaxis: Not indicated-Anticoagulated or INR therapeutic
[2016-07-01] MEDS: Budesonide/Formoterol 160/4.5 MDI IH SCH (10:25)
[2016-07-01] MEDS ORDERED: FLU VACC QS2016-17 36MOS UP/PF 0.5 ML SYRINGE IM ONE (11:00)
[2016-07-01] MEDS ORDERED: Insulin LISPRO 300 UNITS/3 ML VIAL SQ SCH ×2 (11:30)
[2016-07-01] MEDS ORDERED: Aminoglycoside Consult 1 EACH MC ONE (12:04)
--- NOTE | 2016-07-01 13:37 | Venous Imaging Report ---
UE Venous Duplex Patient Name:Tim Thurman Order Number:[id number] Procedure Date:06/30/2016 Date:1965Age:50 yrs Gender:Male Location:[facility] Room #: 3A53 Sap Bw Consultant:Cleo Cardenas Referring MD:Hali Oates MD family practice physician:None Reading MD:Shadi Avila MD Primary Indications:UE DVT follow up Secondary Indications: Risk Factors Yes/No Hx of DVT Impressions: Bilateral upper extremity: normal superficial and deep exam. Findings Prior Study: No prior study available for comparison. Upper Extremity Venous Duplex Side Vein Compress Spontaneous Flow Augment Right Jugular Normal Yes Phasic Yes Right Subclavian Normal Yes Phasic Yes Right Axillary Normal Yes Phasic Yes Right Brachial Normal Yes Phasic Yes Right Cephalic Normal Yes Phasic Yes Right Basilic Normal Yes Phasic Yes Right Radial Normal Yes Phasic Yes Right Ulnar Normal Yes Phasic Yes Left Jugular Normal Yes Phasic Yes Left Subclavian Normal Yes Phasic Yes Left Axillary Normal Yes Phasic Yes Left Brachial Normal Yes Phasic Yes Left Cephalic Normal Yes Phasic Yes Left Basilic Normal Yes Phasic Yes Left Radial Normal Yes Phasic Yes Left Ulnar Normal Yes Phasic Yes Updated by Shadi Avila MD on 07/01/2016 1:31:54 PM electronically signed on 07/01/2016 1:32:06 PM with status of Final
== END 2016-07-01 12:05 | disposition home or self-care (01) | DRG 811 ==
LOC: EMEROO 11:06 → ICNU 14:41 → 3ANU 06-29 12:37
PROVIDERS: ADMIT Internal Medicine Pulmonary Disease; ATTEND Internal Medicine
PROC: ENDOEBX (2016-06-29 08:00)
PROC: ENDOCBX (2016-06-30 10:35)

== ENCOUNTER 2017-07-06 16:14 | Observation (INO) ==
--- NOTE | 2017-07-06 16:40 | Emergency Department Note ---
Disposition Clinical Impression: Nausea, Weight loss Disposition: Admitted As Inpatient Condition: Good Time of Disposition: 18:57 General Adult HPI - General Chief complaint: ED Nausea/Vomiting/Diarrhea Stated complaint: NONA-Dr Dukes possible scope-hx esophagus dilated x 2 Time Seen by Provider: 07/06/17 16:27 Source: patient, EMS Limitations: no limitations Nursing Notes Reviewed: Yes Vital Signs Reviewed: Yes - History of Present Illness HPI Narrative: 51-year-old male presents to the emergency department due to concern for an abdominal procedure. Patient states that he was supposed to see a physician but he is unsure which one for procedure that he is not sure of either. He states apparently that doing any more. He checked in to the emergency department but he cannot tell me why he checked in. He denies any nausea or vomiting. No abdominal pain. He states he has a history of nausea and vomiting and difficulty with food. He voices no complaints at this time. Pt Subjective Complaint: Unknown Pain Scale: 0 Consistency: constant Improves with: nothing Worsens with: nothing Associated symptoms: Reports: denies other symptoms Treatments Prior to Arrival: none - Related Data Home Medications Medication Instructions Recorded Confirmed Insulin LISPRO [HumaLOG] 5 units SQ TIDWM PRN 05/10/16 05/14/17 Aspirin [Lo-Dose Aspirin EC] 81 mg PO DAILY 06/28/16 05/14/17 Lipase/Protease/Amylase [Jatin Richards 1 cap PO TID 06/28/16 05/14/17 12,000 Units Capsule] Insulin Glargine,Hum.rec.anlog 7 unit SQ QAM 09/11/16 05/14/17 [Lantus Solostar] Acetaminophen [Tylenol] 325 mg PO Q4HR PRN 04/24/17 05/14/17 Atorvastatin [Lipitor] 40 mg PO HS 04/24/17 05/14/17 LevETIRAcetam [Keppra] 5 ml PO Q12H 04/24/17 05/14/17 Melatonin [Melatin] 9 mg PO HS PRN 04/24/17 05/14/17 Mv-Mn/FA/Vit K/Lycop/Lut/Coq10 1 tab PO DAILY 04/24/17 05/14/17 [Daily Multivitamin Capsule] Ondansetron [Zofran] 8 mg PO Q6H PRN 04/24/17 05/14/17 Pantoprazole Sodium 40 mg PO QAM 04/24/17 05/14/17 Polyethylene Glycol 3350 [MiraLAX] 17 gm PO DAILY PRN 04/24/17 05/14/17 Sennosides/Docusate Sodium [Senna 1 each PO BID PRN 04/24/17 05/14/17 Plus] Sertraline [Zoloft] 50 mg PO DAILY 04/24/17 05/14/17 Allergies Allergy/AdvReac Type Severity Reaction Status Date / Time No Known Allergies Allergy Verified 07/06/17 16:18 All systems ED: reviewed and negative except as stated. Constitutional: Denies: fever Cardiovascular: Denies: chest pain Respiratory: Denies: dyspnea Gastrointestinal: Denies: abdominal pain, nausea, vomiting Past Medical History - Past Medical History Attestation: Yes The following information was validated with the patient. Medical history: Reports: COPD, diabetes, GERD, hyperlipidemia, kidney stones, seizures, other Surgical history: Reports: other Psychiatric history: Reports: depression - Social History Smoking Status: Former smoker Smokeless Tobacco Status: No Alcohol use: Reports: occasionally, heavy Drug use: Reports: none Physical Exam - General Limitations: no limitations General appearance: alert, cachectic - Head Head exam: atraumatic, normocephalic - Eye Eye exam: Present: normal appearance - ENT ENT exam: normal exam - Neck Neck exam: Present: normal inspection, full ROM - Chest Chest inspection: Present: normal inspection, symmetric chest wall rise - Respiratory Respiratory exam: Present: normal lung sounds bilaterally - Cardiovascular Cardiovascular exam: Present: regular rate, normal rhythm, normal heart sounds - Abdominal Exam Abdominal exam: Present: soft, Non-Tender. Absent: tenderness, distention, rigidity - Extremities Exam Extremities exam: Present: normal inspection, full ROM - Expanded Upper Extremity Exam Shoulder exam: Present: normal inspection, full ROM Arm exam: Present: normal inspection, full ROM Elbow exam: Present: normal inspection, full ROM Forearm/Wrist exam: Present: normal inspection, full ROM Hand exam: Present: normal inspection, full ROM - Expanded Lower Extremity Exam Hip/Pelvis exam: Present: normal inspection, full ROM Upper leg exam: Present: normal inspection, full ROM Knee exam: Present: normal inspection, full ROM Lower leg exam: Present: normal inspection, full ROM Ankle exam: Present: normal inspection, full ROM Foot/toe exam: Present: normal inspection, full ROM - Psychiatric Psychiatric exam: Present: normal affect - Skin Skin exam: Present: warm, dry, intact Course Course Narrative: Patient seen and examined. We will discuss with the on-call endoscopist as well as baseline labs. - Reevaluation(s) Reevaluation #1: I spoke with the legal arbitrator from the patient's residence. They report they were concerned about hypokalemia and about the patient getting a scope. Reevaluation #2: The patient's brother called to speak about his condition. Reports the brother is power of transactional attorney. He states the patient had weight loss recently and will not admit that he has been vomiting quite a bit. He has had 2 prior esophageal dilations from gastrology. Reports he needs a stent but his insurance will cover it currently. He requested I speak with endoscopy before any final disposition. He provided me with his number to call him back. - Consultations Consultation #1: I spoke with the on-call cut in worker Dr. Dukes. Discussed the patient's history exam labs and concerns. He agrees to see the patient in consultation. Vital Signs Temperature 98.1 F 07/06/17 16:18 Pulse Rate 107 07/06/17 16:18 Respiratory Rate 20 07/06/17 16:18 Blood Pressure 92/60 07/06/17 16:18 O2 Sat by Pulse Oximetry 96 07/06/17 16:18 Temperature 98.1 F 07/06/17 16:18 Pulse Rate 107 07/06/17 16:18 Respiratory Rate 20 07/06/17 16:18 Blood Pressure 92/60 07/06/17 16:18 O2 Sat by Pulse Oximetry 96 07/06/17 16:18 Oxygen Delivery Oxygen Delivery Room Air Medical Decision Making - MDM Narrative Medical decision making narrative: 51-year-old male presents to the ER with prior history of esophageal stricture requiring dilation who presents to the ER due to weight loss and vomiting. Patient is a poor historian. I spoke with his family member. There has been recent weight loss. He is unable to eat at the facility. Case discussed with gastrology who is on board for consultation. Admitted to the hospitalist service. - Lab Data Lab results reviewed: Yes I reviewed the patient's lab results. Result diagrams: 07/06/17 16:59 07/06/17 16:59 Lab Results 07/06/17 07/06/17 07/06/17 Range/Units 16:59 16:59 17:15 WBC 8.0 (4.3-11.1) K/mcL RBC 5.06 (4.19-5.50) M/mcL Hgb 14.3 (12.9-16.9) g/dL Hct 41.3 (37.5-50.1) % MCV 81.6 L (83.0-100.0) fL MCH 28.3 (28.0-33.3) pg MCHC 34.6 (31.6-35.5) g/dL RDW 12.6 (11.5-14.5) % Plt Count 218 (140-400) K/mcL MPV 8.7 L (9.4-12.4) fL Immature Gran % 0.1 (0-4) % Seg Neutrophils % 54.3 % Lymphocytes % 34.9 % Monocytes % 7.1 % Eosinophils % 3.1 % Basophils % 0.5 % Neutrophils # 4.4 (1.6-8.9) K/mcL Lymphocytes # 2.8 (0.6-4.6) K/mcL Monocytes # 0.6 (0.0-1.3) K/mcL Eosinophils # 0.3 (0.0-0.6) K/mcL Basophils # 0.0 (0.0-0.2) K/mcL Sodium 139 (136-145) mEq/L Potassium 3.5 (3.5-5.1) mEq/L Chloride 100 (98-107) mEq/L Carbon Dioxide 30 H (23-29) mEq/L BUN 12 (6-20) mg/dL Creatinine 0.79 (0.70-1.30) mg/dL Est GFR ( Amer) > 60 (> 60) Est GFR (Non-Af Amer) > 60 (> 60) BUN/Creatinine Ratio 15 (6-26) Glucose 177 H (70-105) mg/dL Calculated Osmolality 292 (280-300) Calcium 10.7 H (8.6-10.3) mg/dL Magnesium 2.1 (1.6-2.6) mg/dL Total Bilirubin 0.7 (0.3-1.0) mg/dL AST 21 (13-39) Units/L ALT 19 (7-52) Units/L Alkaline Phosphatase 116 H (34-104) Units/L Serum Total Protein 8.1 (6.4-8.9) g/dL Albumin 4.8 (3.5-5.7) g/dL Globulin 3.3 (2.4-3.5) g/dL Albumin/Globulin Ratio 1.5 (1.1-2.2) Lipase < 3 L (11-82) Units/L Urine Color Dark Yellow (Yellow) Urine Clarity Cloudy A (Clear) Urine pH 6.5 (5.0-8.0) pH Units Ur Specific [place] 1.030 H (1.010-1.025) Urine Protein 30 H (Neg-Trace) mg/dL Urine Glucose (UA) 250 H (Normal) mg/dL Urine Ketones Negative (Negative) mg/dL Urine Blood Moderate H (Negative) Urine Nitrite Negative (Negative) Urine Bilirubin Negative (Negative) Urine Urobilinogen Normal (Normal) mg/dL Ur Leukocyte Esterase Small H (Negative) Urine Microscopic RBC 5-15 H (0-3) per hpf Urine Microscopic WBC 30-50 H (0-3) per hpf Ur Squamous Epith Cells Many H (None-Few) per lpf Calcium Oxalate Crystal Present Urine Bacteria None Seen (None-Few) per hpf Hyaline Casts Moderate H (None-Few) per lpf Ur Culture Indicated? NO. (NO) S.B.A.R. - S.B.A.R. Situation: Demographics, MOA Background: Presenting Complaint, Relevant PMH, Meds, & Allergies Assessment: Course and respsone to treatment, Exam Concerns, Patient/Family Expectation, Pertinant Lab Results Recommendation: Barrier(s) to disposition, Recommendation based on pending studies, treatments, or consults S.B.A.R. Report Given to: Dr. Feldman Attestation Statement - Attestation Attestation: I examined this patient and my medical decision-making was reviewed with the Resident Physician. I agree with the documented findings, disposition and treatment plan as described except to the extent set forth below. 51-year-old male presents ED because of weight loss. He has had symptoms for the past several months and really there is been weight loss and intermittent vomiting. He was referred to Dr. Dukes and they will plan and/or some type of endoscopic procedure yesterday but patient did not show up. He now presents the ED for evaluation. He denies any pain. He has had intermittent nausea but denies any vomiting today. He has had about 30 pounds of weight loss over the past 6 weeks. No diarrhea. No fevers. No abdominal pain. Thin male in no apparent physiologic distress. He is talkative and interactive. His membranes are moist neck is supple. Trachea midline. Chest clear to auscultation bilaterally. Abdomen soft non-distended and non-tender to palpation. Extremities warm and dry. Metabolic workup was unremarkable. He will be discharged home to continue follow-up plans with his primary care doctor and cut in worker. 19:42 further discussion with family as well as his cut in worker and patient is now agreeing to stay in the hospital for supportive care, hydration, nutritional supplementation and probable endoscopic procedure
[2017-07-06 17:05] LABS: Basophils % 0.5 %; Eosinophils # 0.3 K/mcL (0.0-0.6); Eosinophils % 3.1 %; Hematocrit 41.3 % (37.5-50.1); Hemoglobin 14.3 g/dL (12.9-16.9); Immature Granulocytes % 0.1 % (0-4); Lymphocytes # 2.8 K/mcL (0.6-4.6); Lymphocytes % 34.9 %; Mean Corpuscular HGB Conc 34.6 g/dL (31.6-35.5); Mean Corpuscular Hemoglobin 28.3 pg (28.0-33.3); Mean Corpuscular Volume 81.6 fL (83.0-100.0); Mean Platelet Volume 8.7 fL (9.4-12.4); Monocytes # 0.6 K/mcL (0.0-1.3); Monocytes % 7.1 %; Neutrophils # 4.4 K/mcL (1.6-8.9); Platelet Count 218 K/mcL (140-400); Red Blood Count 5.06 M/mcL (4.19-5.50); Red Cell Distribution Width 12.6 % (11.5-14.5); Segmented Neutrophils % 54.3 %
[2017-07-06 17:48] LABS: Bilirubin,Urine Negative (Negative); Blood,Urine Moderate (Negative); Clarity,Urine Cloudy (Clear); Color,Urine Dark Yellow (Yellow); Glucose,Urine (UA) 250 mg/dL (Normal); Ketones,Urine Negative (Negative); Leukocyte Esterase,Urine Small (Negative); Nitrite,Urine Negative (Negative); PH,Urine 6.5 pH Units (5.0-8.0); Protein,Urine 30 mg/dL (Neg-Trace); Urobilinogen,Urine Normal (Normal)
[2017-07-06 17:51] LABS: Bacteria,Urine None Seen per hpf (None-Few); Hyaline Casts,Urine Moderate per lpf (None-Few); Squamous Epithelial Cell,Urine Many per lpf (None-Few); WBC,Urine 30-50 per hpf (0-3)
[2017-07-06 17:56] LABS: Alanine Aminotransferase 19 Units/L (7-52); Albumin 4.8 g/dL (3.5-5.7); Albumin/Globulin Ratio 1.5 (1.1-2.2); Alkaline Phosphatase 116 Units/L (34-104); Aspartate Amino Transferase 21 Units/L (13-39); BUN/Creatinine Ratio 15 (6-26); Bilirubin,Total 0.7 mg/dL (0.3-1.0); Blood Urea Nitrogen 12 mg/dL (6-20); Calcium 10.7 mg/dL (8.6-10.3); Carbon Dioxide 30 mEq/L (23-29); Chloride 100 mEq/L (98-107); Globulin 3.3 g/dL (2.4-3.5); Glucose 177 mg/dL (70-105); Lipase < 3 Units/L (11-82); Magnesium 2.1 mg/dL (1.6-2.6); Osmolality,Calculated 292 (280-300); Potassium 3.5 mEq/L (3.5-5.1); Sodium 139 mEq/L (136-145); Total Protein 8.1 g/dL (6.4-8.9); eGFR For African Americans > 60 (> 60); eGFR For Non-African Americans > 60 (> 60)
[2017-07-06 18:02] LABS: Calcium Oxalate Crystals,Urine Present
[2017-07-06] MEDS ORDERED: Acetaminophen 325 MG TABLET PO PRN (21:51)
[2017-07-06] MEDS ORDERED: Sennosides/Docusate Sodium TABLET PO PRN (21:51)
[2017-07-06] MEDS ORDERED: Naloxone 0.4 MG/ML INJ IVP PRN (21:52)
[2017-07-06] MEDS ORDERED: *HR* Promethazine 25 MG/ML VIAL IVP PRN (21:52)
[2017-07-06] MEDS ORDERED: Ondansetron 4 MG/2 ML VIAL IVP PRN (21:52)
[2017-07-06] MEDS ORDERED: *HR* Dextrose 50 % in Water (Syg) 50 ML SYRINGE IVP PRN (21:55)
[2017-07-06] MEDS ORDERED: Dextrose Gel 15 GM/37.5 ML TUBE PO PRN ×2 (21:55)
[2017-07-06] MEDS ORDERED: D5% in Water 1,000 ML IVC PRN (21:55)
--- NOTE | 2017-07-06 21:57 | Internal Med History&Physical ---
Date of Encounter: 07/06/17 Time of Encounter: 21:57 Assessment and Plan (1) Regurgitation of food Current visit: Yes Status: Acute ED d/w GI who will eval sunday, Possible stenting, pending further recs Will observe inpatient with regular food. If unable to tolerated, will escalate to soft or full liquids IV anti-emetics (2) Diabetes 1.5, managed as type 1 Current visit: Yes Status: Acute ISS Internal Medicine - H&P: HPI Chief complaint: regurgitation of food History of present illness: Mr. Thurman is a 51 year old male who presents for Gi evaluation of food regurgitation. 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 He reports subacute hx of 2-3 months of intermittent regurgitation of undigested food that is non-bloody occurring intermittently from every other day or less, seldom daily. He is to follow up with Dr Dukes whom the ED contact and will eval on sunday. He has reports having "his intestines messed up". Collateral report hx of 2 prior esophageal diltation. There is ongoing plans by GI for stent Review note of some weight loss perhaps related to regurgitation Past Med Surg Social Fam HX - Past Medical History Medical history: COPD, diabetes, GERD, hyperlipidemia, kidney stones, seizures, other Psychiatric history: depression - Past Surgical History Surgical History: other - Social History Smoking Status: Former smoker Smokeless Tobacco Status: No Alcohol use: occasionally, heavy Drug use: none - Family History Mother Adopted: Yes Daughter Adopted: No Living Status: Still Living Hx Family Cardiac Disorders: No Hx Family Respiratory Disorders: No Hx Family Cancer: No Hx Family GI Disorders: No Hx Family Endocrine Disorder: No Hx Family Neuromuscular Disorders: No Hx Family Neurologic Disorders: No Hx Family HEENT Disorders: No Hx Family Autoimmune Disorders: No Internal Medicine - H&P: Meds Insulin LISPRO [HumaLOG] 5 units SQ TIDWM PRN 05/10/16 [History] Aspirin [Lo-Dose Aspirin EC] 81 mg PO DAILY 06/28/16 [History] Lipase/Protease/Amylase [Jatin Richards 12,000 Units Capsule] 1 cap PO TID 06/28/16 [ History] Insulin Glargine,Hum.rec.anlog [Lantus Solostar] 7 unit SQ QAM 09/11/16 [History ] Acetaminophen [Tylenol] 325 mg PO Q4HR PRN 04/24/17 [History] Atorvastatin [Lipitor] 40 mg PO HS 04/24/17 [History] LevETIRAcetam [Keppra] 5 ml PO Q12H 04/24/17 [History] Melatonin [Melatin] 9 mg PO HS PRN 04/24/17 [History] Mv-Mn/FA/Vit K/Lycop/Lut/Coq10 [Daily Multivitamin Capsule] 1 tab PO DAILY 04/24 [History] Ondansetron [Zofran] 8 mg PO Q6H PRN 04/24/17 [History] Pantoprazole Sodium 40 mg PO QAM 04/24/17 [History] Polyethylene Glycol 3350 [MiraLAX] 17 gm PO DAILY PRN 04/24/17 [History] Sennosides/Docusate Sodium [Senna Plus] 1 each PO BID PRN 04/24/17 [History] Sertraline [Zoloft] 50 mg PO DAILY 04/24/17 [History] 3 Allergy/AdvReac Type Severity Reaction Status Date / Time No Known Allergies Allergy Verified 07/06/17 16:18 All Systems PM: A 10-system review of systems was performed and is negative for pertinent findings except as documented above in the HPI. Review of systems: General - AAO x 3 Psych - Appropriate affect/speech. No agitation Eyes - ALEJANDRA. Eye lids intact. No scleral icterus Neuro - No gross peripheral or central neuro deficits Heart - Sinus. RRR. S1 and S2 present. No added HS/murmurs appreciated. No elevated JVD appreciated. Lung - Adequate air entry b/l, No crackles/wheezes appreciated GI - Soft, non-tender. No hepatosplenomegaly/ascites. BS+ - No CVA/suprapubic tenderness or palpable bladder distension Skin - Intact. No rash/petechiae/ecchymosis. Warm extremities MSK - Joints with normal ROM. No joint swellings - Constitutional Vitals: Temp Pulse Resp BP Pulse Ox 98.0 F 77 14 108/74 97 07/06/17 20:42 07/06/17 20:42 07/06/17 20:42 07/06/17 20:42 07/06/17 20:42 Internal Med - H&P Results - Labs CBC & Chem 7: 07/06/17 16:59 07/06/17 16:59
[2017-07-06] MEDS: levETIRAcetam 500 MG/5 ML UDC PO SCH (23:23)
[2017-07-07] MEDS: Aspirin Enteric Coated 81 MG Tablet PO SCH (08:48)
[2017-07-07] MEDS: levETIRAcetam 500 MG/5 ML UDC PO SCH ×2 (08:48→20:56)
[2017-07-07] MEDS: Insulin LISPRO 300 UNITS/3 ML VIAL SQ SCH ×4 (08:56→20:56)
[2017-07-07] MEDS ORDERED: NON-FORMULARY MEDICATION 1 EACH EACH (Insulin Glargine,Hum.Rec.Anlog [Lantus Solostar] 7 U SQ SCH (09:00)
[2017-07-07] MEDS ORDERED: 0.9 % Sodium Chloride 500 ML IVC ONE (09:20)
--- NOTE | 2017-07-07 10:09 | Internal Med Progress Note ---
Date of Encounter: 07/07/17 Time of Encounter: 10:07 - Assessment and plan (1) Regurgitation of food Current Visit: Yes Status: Acute Assessment and plan: management pending GI eval Per H and P and ER, GI has been consulted by phone Continue feeds as tolerated NPO from Sunday [place] for possible procedure MOn Am (2) Diabetes 1.5, managed as type 1 Current Visit: Yes Status: Chronic Assessment and plan: Controlled, continue current meds FSACHS (3) GERD (gastroesophageal reflux disease) Current Visit: Yes Status: Chronic Assessment and plan: Chronic, continue home meds Qualifiers: Esophagitis presence: esophagitis presence not specified Qualified Code(s) : K21.9 - Gastro-esophageal reflux disease without esophagitis (4) COPD (chronic obstructive pulmonary disease) Current Visit: Yes Status: Chronic Assessment and plan: Chest is clear, with no exacerbation, duonebs prn Qualifiers: COPD type: emphysema Emphysema type: panlobular Qualified Code(s): J43.1 - Panlobular emphysema - Subjective Interval history: Seen and evaluated at bedside Admitted for food regurgitation. 51-year-old male with history of MRDD, diabetes mellitus, esophageal strictures with multiple history of dilatation, chronic respiratory failure home oxygen intermittently. Patient reports he was admitted for an assumption he is getting a procedure this morning. He has no new complaints, he is tolerating very minimal po. No history of aspiration. No chest symptoms at this time. Gastroenterology has been consulted by the admitting team and I will follow. Work up on admission is unremarkable. - Constitutional Vitals: Temp Pulse Resp BP Pulse Ox 98.3 F 76 16 80/51 97 07/07/17 07:58 07/07/17 07:58 07/07/17 07:58 07/07/17 07:58 07/07/17 07:58 General appearance: Present: cachectic, A&O X 3, no acute distress - Head Head exam: Present: atraumatic, normocephalic - Eye Eye exam: Present: PERRL, conjuntiva pink, sclera anicteric Pupils: Present: PERRL - Neck Neck exam general surgery: Present: supple, trachea midline. Absent: lymphadenopathy - Respiratory Respiratory exam: Present: CTAB. Absent: accessory muscle use, rales, rhonchi, wheezes - Cardiovascular Cardiovascular exam: Present: RRR, +S1, +S2. Absent: diastolic murmur, gallop, rubs, systolic murmur - GI/Abdominal GI/Abdominal exam: Present: normal bowel sounds, soft, no peritoneal signs. Absent: distended, tenderness - Extremities Exam Extremities exam: Present: warm, radial pulses palpable and symmetrical. Absent : calf tenderness, cyanotic, pedal edema - Neurological Exam Neurological exam: Present: alert, CN II-XII intact, oriented X3, no focal deficits. Absent: pronater drift, facial droop, speech deficit - Skin Skin exam: Present: dry, intact Internal Medicine: Result - Labs CBC & Chem 7: 07/06/17 16:59 07/06/17 16:59 - Impressions Impressions Chest/Abdomen X-ray 07/06/17 21:56 IMPRESSION: No acute abdominal radiographic abnormality. D/ / Barb Mehta Cha, MD / Barb Mehta Cha, MD Interpreting Provider: Barb Mehta Cha, MD Consult Discharge Plan - Plan Referrals: NONE,PCP [Primary Care Provider] -
[2017-07-07] MEDS: Insulin DETEMIR 100 UNIT/ML X5UNITS SQ SCH (20:56)
[2017-07-07] MEDS: Melatonin 3 MG TABLET PO PRN (20:58)
[2017-07-08 06:38] LABS: Basophils # 0.1 K/mcL (0.0-0.2); Basophils % 0.7 %; Eosinophils # 0.3 K/mcL (0.0-0.6); Eosinophils % 4.1 %; Hematocrit 39.2 % (37.5-50.1); Hemoglobin 13.3 g/dL (12.9-16.9); Immature Granulocytes % 0.3 % (0-4); Lymphocytes % 43.4 %; Mean Corpuscular HGB Conc 33.9 g/dL (31.6-35.5); Mean Corpuscular Hemoglobin 27.9 pg (28.0-33.3); Mean Corpuscular Volume 82.4 fL (83.0-100.0); Mean Platelet Volume 8.9 fL (9.4-12.4); Monocytes # 0.6 K/mcL (0.0-1.3); Platelet Count 193 K/mcL (140-400); Red Blood Count 4.76 M/mcL (4.19-5.50); Red Cell Distribution Width 12.7 % (11.5-14.5); Segmented Neutrophils % 43.5 %
[2017-07-08 06:54] LABS: BUN/Creatinine Ratio 30 (6-26); Blood Urea Nitrogen 24 mg/dL (6-20); Calcium 10.3 mg/dL (8.6-10.3); Carbon Dioxide 33 mEq/L (23-29); Chloride 102 mEq/L (98-107); Glucose 81 mg/dL (70-105); Osmolality,Calculated 301 (280-300); Potassium 2.6 mEq/L (3.5-5.1); Sodium 144 mEq/L (136-145); eGFR For African Americans > 60 (> 60); eGFR For Non-African Americans > 60 (> 60)
[2017-07-08] MEDS: Insulin LISPRO 300 UNITS/3 ML VIAL SQ SCH ×4 (07:48→20:35)
[2017-07-08] MEDS ORDERED: 0.9 % Sodium Chloride 500 ML IVC ONE (08:07)
[2017-07-08] MEDS: levETIRAcetam 500 MG/5 ML UDC PO SCH ×2 (09:04→20:35)
[2017-07-08] MEDS: Aspirin Enteric Coated 81 MG Tablet PO SCH (09:04)
[2017-07-08] MEDS ORDERED: Potassium Chloride 40 MEQ, Lidocaine 1% 2 ML in D5% in Water 500 ML IVPB ONE (09:35)
--- NOTE | 2017-07-08 10:39 | Internal Med Progress Note ---
Date of Encounter: 07/08/17 Time of Encounter: 09:45 - Assessment and plan (1) Regurgitation of food Current Visit: Yes Status: Acute Assessment and plan: management pending GI eval Per H and P and ER, GI has been consulted by phone Continue feeds as tolerated NPO from Sunday [place] for possible procedure MOn Am (2) Diabetes 1.5, managed as type 1 Current Visit: Yes Status: Chronic Assessment and plan: Controlled, continue current meds FSACHS (3) GERD (gastroesophageal reflux disease) Current Visit: Yes Status: Chronic Assessment and plan: Chronic, continue home meds Qualifiers: Esophagitis presence: esophagitis presence not specified Qualified Code(s) : K21.9 - Gastro-esophageal reflux disease without esophagitis (4) COPD (chronic obstructive pulmonary disease) Current Visit: Yes Status: Chronic Assessment and plan: Chest is clear, with no exacerbation, duonebs prn Qualifiers: COPD type: emphysema Emphysema type: panlobular Qualified Code(s): J43.1 - Panlobular emphysema (5) Hypokalemia Current Visit: Yes Status: Acute Assessment and plan: Replaced, repeat Chem pm - Subjective Interval history: Seen and evaluated at bedside Admitted for food regurgitation. 51-year-old male with history of MRDD, diabetes mellitus, esophageal strictures with multiple history of dilatation, chronic respiratory failure home oxygen intermittently. He has no new complaints, he is tolerating very minimal po. No history of aspiration. No chest symptoms at this time. Gastroenterology has been consulted by the admitting team and will follow. Work up on admission is unremarkable. He is hypokalemic, low blood pressure is chronic, will give a bolus and replace K - Constitutional Vitals: Temp Pulse Resp BP Pulse Ox 97.7 F 52 14 88/53 96 07/08/17 07:30 07/08/17 07:30 07/08/17 07:30 07/08/17 07:30 07/08/17 07:30 General appearance: Present: cachectic, A&O X 3, no acute distress - Head Head exam: Present: atraumatic, normocephalic - Eye Eye exam: Present: PERRL, conjuntiva pink, sclera anicteric Pupils: Present: PERRL - Neck Neck exam general surgery: Present: supple, trachea midline. Absent: lymphadenopathy - Respiratory Respiratory exam: Present: CTAB. Absent: accessory muscle use, rales, rhonchi, wheezes - Cardiovascular Cardiovascular exam: Present: RRR, +S1, +S2. Absent: diastolic murmur, gallop, rubs, systolic murmur - GI/Abdominal GI/Abdominal exam: Present: normal bowel sounds, soft, no peritoneal signs. Absent: distended, tenderness - Extremities Exam Extremities exam: Present: warm, radial pulses palpable and symmetrical. Absent : calf tenderness, cyanotic, pedal edema - Neurological Exam Neurological exam: Present: alert, CN II-XII intact, oriented X3, no focal deficits. Absent: pronater drift, facial droop, speech deficit - Skin Skin exam: Present: dry, intact Internal Medicine: Result - Labs CBC & Chem 7: 07/08/17 06:04 07/08/17 06:04 Labs: Short CBC 07/08/17 Range/Units 06:04 WBC 6.8 (4.3-11.1) K/mcL Hgb 13.3 (12.9-16.9) g/dL Hct 39.2 (37.5-50.1) % Plt Count 193 (140-400) K/mcL Neutrophils # 3.0 (1.6-8.9) K/mcL BMP 07/08/17 06:04 Sodium 144 Potassium 2.6 L Chloride 102 Carbon Dioxide 33 H BUN 24 H Creatinine 0.79 Glucose 81 Calcium 10.3 Consult Discharge Plan - Plan Referrals: NONE,PCP [Primary Care Provider] -
[2017-07-08] MEDS: Insulin DETEMIR 100 UNIT/ML X5UNITS SQ SCH (20:35)
[2017-07-08] MEDS: Melatonin 3 MG TABLET PO PRN (20:36)
[2017-07-09 04:59] LABS: Basophils % 0.5 %; Eosinophils # 0.2 K/mcL (0.0-0.6); Eosinophils % 3.1 %; Hematocrit 34.1 % (37.5-50.1); Immature Granulocytes % 0.3 % (0-4); Lymphocytes # 3.7 K/mcL (0.6-4.6); Lymphocytes % 47.9 %; Mean Corpuscular HGB Conc 33.7 g/dL (31.6-35.5); Mean Corpuscular Hemoglobin 27.7 pg (28.0-33.3); Mean Corpuscular Volume 82.2 fL (83.0-100.0); Monocytes # 0.5 K/mcL (0.0-1.3); Monocytes % 6.7 %; Neutrophils # 3.2 K/mcL (1.6-8.9); Platelet Count 197 K/mcL (140-400); Red Blood Count 4.15 M/mcL (4.19-5.50); Red Cell Distribution Width 12.5 % (11.5-14.5); Segmented Neutrophils % 41.5 %
[2017-07-09 05:08] LABS: Hemoglobin 11.5 g/dL (12.9-16.9)
[2017-07-09 05:24] LABS: BUN/Creatinine Ratio 31 (6-26); Blood Urea Nitrogen 19 mg/dL (6-20); Calcium 9.5 mg/dL (8.6-10.3); Carbon Dioxide 28 mEq/L (23-29); Chloride 102 mEq/L (98-107); Glucose 109 mg/dL (70-105); Osmolality,Calculated 291 (280-300); Potassium 2.6 mEq/L (3.5-5.1); Sodium 139 mEq/L (136-145); eGFR For African Americans > 60 (> 60); eGFR For Non-African Americans > 60 (> 60)
[2017-07-09] MEDS: Insulin LISPRO 300 UNITS/3 ML VIAL SQ SCH ×4 (07:58→21:34)
[2017-07-09] MEDS: Aspirin Enteric Coated 81 MG Tablet PO SCH (09:17)
[2017-07-09] MEDS: levETIRAcetam 500 MG/5 ML UDC PO SCH ×2 (09:17→21:34)
[2017-07-09] MEDS ORDERED: Potassium Chloride 40 MEQ, Lidocaine 1% 2 ML in D5% in Water 500 ML IVPB ONE (11:06)
--- NOTE | 2017-07-09 11:07 | Internal Med Progress Note ---
Date of Encounter: 07/09/17 Time of Encounter: 11:07 - Assessment and plan (1) Regurgitation of food Current Visit: Yes Status: Acute Assessment and plan: NPO i spoke with Dr. Dukes, he will evaluate the patient and will undergo endoscopy with possible stent placement today NPO till then (2) Diabetes 1.5, managed as type 1 Current Visit: Yes Status: Chronic Assessment and plan: Controlled, continue current meds FSACHS (3) GERD (gastroesophageal reflux disease) Current Visit: Yes Status: Chronic Assessment and plan: Chronic, continue home meds Qualifiers: Esophagitis presence: esophagitis presence not specified Qualified Code(s) : K21.9 - Gastro-esophageal reflux disease without esophagitis (4) COPD (chronic obstructive pulmonary disease) Current Visit: Yes Status: Chronic Assessment and plan: Chest is clear, with no exacerbation, duonebs prn Qualifiers: COPD type: emphysema Emphysema type: panlobular Qualified Code(s): J43.1 - Panlobular emphysema (5) Hypokalemia Current Visit: Yes Status: Acute Assessment and plan: Replaced, repeat Chem pm (6) Malnutrition Current Visit: Yes Status: Chronic Assessment and plan: eval by machine hamper maker noted Continue current are No indication for TPN patient should improve after esophageal dilatation with stent placement. Qualifiers: Malnutrition type: protein-calorie malnutrition Protein-calorie malnutrition severity: severe Qualified Code(s): E43 - Unspecified severe protein-calorie malnutrition - Subjective Interval history: Seen and evaluated at bedside with his brother Awaiting GI eval Admitted for food regurgitation. 51-year-old male with history of MRDD, diabetes mellitus, esophageal strictures with multiple history of dilatation, chronic respiratory failure home oxygen intermittently. He has no new complaints, he is tolerating very minimal po. No history of aspiration. No chest symptoms at this time. Work up on admission is unremarkable. He is hypokalemic, low blood pressure is chronic, will replace K - Constitutional Vitals: Temp Pulse Resp BP Pulse Ox 97.8 F 58 15 91/54 99 07/09/17 07:50 07/09/17 07:50 07/09/17 07:50 07/09/17 07:50 07/09/17 08:25 General appearance: Present: cachectic, A&O X 3, no acute distress - Head Head exam: Present: atraumatic, normocephalic - Eye Eye exam: Present: PERRL, conjuntiva pink, sclera anicteric Pupils: Present: PERRL - Neck Neck exam general surgery: Present: supple, trachea midline. Absent: lymphadenopathy - Respiratory Respiratory exam: Present: CTAB. Absent: accessory muscle use, rales, rhonchi, wheezes - Cardiovascular Cardiovascular exam: Present: RRR, +S1, +S2. Absent: diastolic murmur, gallop, rubs, systolic murmur - GI/Abdominal GI/Abdominal exam: Present: normal bowel sounds, soft, no peritoneal signs. Absent: distended, tenderness - Extremities Exam Extremities exam: Present: warm, radial pulses palpable and symmetrical. Absent : calf tenderness, cyanotic, pedal edema - Neurological Exam Neurological exam: Present: alert, CN II-XII intact, oriented X3, no focal deficits. Absent: pronater drift, facial droop, speech deficit - Skin Skin exam: Present: dry, intact Internal Medicine: Result - Labs CBC & Chem 7: 07/09/17 04:09 07/09/17 04:09 Labs: Short CBC 07/09/17 Range/Units 04:09 WBC 7.7 (4.3-11.1) K/mcL Hgb 11.5 L D (12.9-16.9) g/dL Hct 34.1 L (37.5-50.1) % Plt Count 197 (140-400) K/mcL Neutrophils # 3.2 (1.6-8.9) K/mcL BMP 07/08/17 07/09/17 18:22 04:09 Sodium 139 Potassium 3.7 D 2.6 L D Chloride 102 Carbon Dioxide 28 BUN 19 Creatinine 0.62 L Glucose 109 H Calcium 9.5 Consult Discharge Plan - Plan Referrals: NONE,PCP [Primary Care Provider] -
--- NOTE | 2017-07-09 12:31 | Anesthesia Evaluation PreOp ---
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 Knee skin Graft) Alcohol Use: occasionally, heavy Drug use: none Medications and Allergies Insulin LISPRO [HumaLOG] 1 - 5 units SQ ACHS 05/10/16 [History] Aspirin [Lo-Dose Aspirin EC] 81 mg PO DAILY 06/28/16 [History] Lipase/Protease/Amylase [Hiteshon Dr 12,000 Units Capsule] 1 cap PO TIDAC 06/28/16 [History] Insulin Glargine,Hum.rec.anlog [Lantus Solostar] 14 unit SQ HS 09/11/16 [History ] Acetaminophen [Tylenol] 650 mg PO Q4HR PRN 04/24/17 [History] Atorvastatin [Lipitor] 40 mg PO HS 04/24/17 [History] LevETIRAcetam [Keppra] 750 mg PO BID 04/24/17 [History] Melatonin [Melatin] 9 mg PO HS 04/24/17 [History] Mv-Mn/FA/Vit K/Lycop/Lut/Coq10 [Daily Multivitamin Capsule] 1 tab PO DAILY 04/24 [History] Ondansetron [Zofran] 8 mg PO Q6H PRN 04/24/17 [History] Pantoprazole Sodium 40 mg PO QPM 04/24/17 [History] Polyethylene Glycol 3350 [MiraLAX] 17 gm PO QPM 04/24/17 [History] Sennosides/Docusate Sodium [Senna Plus] 2 each PO BID 04/24/17 [History] Sertraline [Zoloft] 50 mg PO QPM 04/24/17 [History] Insulin LISPRO [HumaLOG] 14 unit SQ TIDWM 07/08/17 [History] Potassium Chloride [Klor-Con 10] 10 meq PO BID 07/08/17 [History] Sucralfate [Carafate] 1 gm PO BID 07/08/17 [History] 3 Allergy/AdvReac Type Severity Reaction Status Date / Time No Known Allergies Allergy Verified 01/12/18 16:18 - Meds/Allergy Pre-op Review Medications Reviewed: Yes Allergies Reviewed: Yes Beta Blockers on Current Med List: Yes If Beta Blockers taken, Date/Time (Last Dose taken): not given due to low BP Anesthesia Results - Labs 07/09/17 04:09 07/09/17 04:09 Stress 06/03/2015 EF-67% Inf wall not well visualized all other segments NML - Imaging EKG: report reviewed (SINUS TACHYCARDIA, POSSIBLE ATRIAL FLUTTER ANTEROSEPTAL MYOCARDIAL INFARCTION, OF INDETERMINATE AGE) Anesthesia Exam O2 Sat Weight 44.951 kg O2 Sat by Pulse Oximetry 99 O2 Sat by Pulse Oximetry 99 O2 Sat by Pulse Oximetry 99 O2 Sat by Pulse Oximetry 95 O2 Sat by Pulse Oximetry 94 O2 Sat by Pulse Oximetry 93 O2 Sat by Pulse Oximetry 97 Vital Signs Temp Pulse Resp BP Pulse Ox 98.1 F 107 20 92/60 96 07/06/17 16:18 07/06/17 16:18 07/06/17 16:18 07/06/17 16:18 07/06/17 16:18 Vital Signs/O2 Sat, Most Current Temp Pulse Resp BP Pulse Ox 97.8 F 65 16 97/66 99 07/09/17 11:32 07/09/17 11:32 07/09/17 11:32 07/09/17 11:32 07/09/17 11:32 NPO (# of Hours): > 8 Hrs Pain Scale: 0 Pain Scale Used: Numeric (1 - 10) - HEENT Pupil (Motor): Pupils equal, EOMI Mallampati: II Teeth: Normal Oral Opening: Greater than 3 - BOTTOM PRECIPITATOR OPERATOR LOC: Oriented BOTTOM PRECIPITATOR OPERATOR Motor: Normal RUE, Normal LUE, Normal RLE, Normal LLE, Normal Face BOTTOM PRECIPITATOR OPERATOR Sensory: Normal: RUE, LUE, RLE, LLE, Face - Cardiac Rhythm: Regular Murmur: None JVD: No Carotid Bruit: No - Pulmonary Breath Sounds: bilateral Clear Respiratory Effort: Symmetrical Anesthesia Assess/Plan ASA Score: 3 Modified Lorraine Scale for Level of Consciousness: Anixous, agitated or restless Anesthetic Plan: MAC Autologous Blood: Yes Monitoring Plan: Standard Monitors Recovery Plan: Other
--- NOTE | 2017-07-09 13:09 | Gastroenterology Consult Note ---
<Ruchi Carreran M - Last Filed: 07/09/17 13:29> Date of Encounter: 07/09/17 Time of Encounter: 11:00 - Assessment and plan (1) Regurgitation of food Current Visit: Yes Status: Acute Assessment and plan: Pt has a history of severe esophageal stenosis and is status post multiple EGDs and dilation in the past. Will proceed with EGD and placement of esophageal covered metal stent today. Risks and benefits, including, perforation, migration , and infection explained to patient and brother and they verbalize understanding and are in agreement with procedure. - Time Spent With Patient Total time spent is greater than 50% in coordination of care (as documented) at patient's floor/unit and/or counseling patient: GI History of Present Illness - Data of Consult Patient: known to practice within the last 3 years Consult date: 07/09/17 Requesting Physician: Yuri Cooper MD - Consult Narrative Reason for consult: vomiting, dysphagia History of present illness: Mr. Thurman is a 51 year old male who presents for GI evaluation of food regurgitation. 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 He reports 2-3 month history of intermittent regurgitation of undigested food that is non-bloody. He denies nausea but states when he tries to eat food just comes back up. He has lost 10 pounds in the past month. He was seen in [facility] 06/28/16 for anemia with a Hgb 5.1, he had EGD that showed long segment Barretts esophagus and nonbleeding angioectasias in the duodenum treated with asc. EGD 05/11 showed stenosis and dilation was done. He denies any abdominal pain, odynophagia, nausea, bloody or tarry stools. Colonoscopy: 06/30/16 tubular adenoamatous polyps, repeat in 3 years EGD: 05/11 stenosis and dialtion (biopsy 09/08 negative for murphy;s) NSAIDS/ASA: asa 81 Anticoagulants: denies Past Med Surg Social Fam HX - Past Medical History Medical history: COPD, diabetes, GERD, hyperlipidemia, kidney stones, seizures, other Psychiatric history: depression - Past Surgical History Surgical History: other - Social History Smoking Status: Former smoker Smokeless Tobacco Status: No Alcohol use: occasionally, heavy Drug use: none - Family History Mother Adopted: Yes Daughter Adopted: No Living Status: Still Living Hx Family Cardiac Disorders: No Hx Family Respiratory Disorders: No Hx Family Cancer: No Hx Family GI Disorders: No Hx Family Endocrine Disorder: No Hx Family Neuromuscular Disorders: No Hx Family Neurologic Disorders: No Hx Family HEENT Disorders: No Hx Family Autoimmune Disorders: No Review of Systems: GI: as per SALAMATOF GENERAL: denies fever, has some chills EYES: denies yellow discoloration ENT: denies pain with swallowing or difficulty swallowing CARDIO: denies chest pain, palpitations RESP: No Shortness of breath with exertion : denies change in color of urine NEURO: denies any weakness HEME: Denies any bruising MS: denies joint pain, joint swelling or back pain. DERM: denies rash or itching PSYCH: Denies history of anxiety or depression - Constitutional Vitals: Temp Pulse Resp BP Pulse Ox 98.2 F 50 16 108/63 100 07/09/17 12:42 07/09/17 12:42 07/09/17 12:42 07/09/17 12:42 07/09/17 12:42 Exam: CONSTITUTIONAL:~alert, no acute distress.~HEAD:~normocephalic, bitemporal wasting noted.~EYES:~no jaundice.~NECK:~no obvious swelling.~HEART:~regular rate and rhythm, no murmurs.~LUNGS:~bilateral fair air entry.~ABDOMEN:~non distended, soft, non tender, no masses palpable, no organomegaly.~RECTAL EXAM:~ Deferred.~EXTREMITIES:~no clubbing, cyanosis or edema.~SKIN:~no stigmata of chronic liver disease.~NEUROLOGIC:~no obvious focal defect.~~~~ Results - Labs CBC & Chem 7: 07/09/17 04:09 07/09/17 04:09 Labs: Last Result Calcium 9.5 mg/dL (8.6-10.3) 07/09/17 04:09 Entire Visit Hgb 11.5 g/dL (12.9-16.9) L D 07/09/17 04:09 Hct 34.1 % (37.5-50.1) L 07/09/17 04:09 Total Bilirubin 0.7 mg/dL (0.3-1.0) 07/06/17 16:59 AST 21 Units/L (13-39) 07/06/17 16:59 ALT 19 Units/L (7-52) 07/06/17 16:59 Lipase < 3 Units/L (11-82) L 07/06/17 16:59 Consult Discharge Plan - Plan Referrals: NONE,PCP [Primary Care Provider] - <Jacqueline Dukes - Last Filed: 07/09/17 17:41> Date of Encounter: 07/09/17 Time of Encounter: 13:00 - Time Spent With Patient Total time spent is greater than 50% in coordination of care (as documented) at patient's floor/unit and/or counseling patient: GI History of Present Illness - Data of Consult Requesting Physician: Yuri Cooper MD - Consult Narrative History of present illness: Mr. Thurman is a 51 year old male - Constitutional Vitals: Temp Pulse Resp BP Pulse Ox 97.9 F 64 14 88/56 99 07/09/17 16:10 07/09/17 16:10 07/09/17 16:10 07/09/17 16:10 07/09/17 16:10 Results - Labs CBC & Chem 7: 07/09/17 04:09 07/09/17 04:09 Labs: Last Result Calcium 9.5 mg/dL (8.6-10.3) 07/09/17 04:09 Entire Visit Hgb 11.5 g/dL (12.9-16.9) L D 07/09/17 04:09 Hct 34.1 % (37.5-50.1) L 07/09/17 04:09 Total Bilirubin 0.7 mg/dL (0.3-1.0) 07/06/17 16:59 AST 21 Units/L (13-39) 07/06/17 16:59 ALT 19 Units/L (7-52) 07/06/17 16:59 Lipase < 3 Units/L (11-82) L 07/06/17 16:59 - Impressions Impressions Chest X-Ray 07/09/17 14:30 IMPRESSION: Intraprocedural fluoroscopic spot images as above. See separate procedure report for more information. D/ / Joel Humphreys MD / Joel Humphreys MD Interpreting Provider: Joel Humphreys MD Fluoroscopy 07/09/17 14:30 IMPRESSION: Intraprocedural fluoroscopic spot images as above. See separate procedure report for more information. D/ / Joel Humphreys MD / Joel Humphreys MD Interpreting Provider: Joel Humphreys MD - Attending Attestation I examined this patient and my medical decision-making was reviewed with the Resident Physician. I agree with the documented findings, disposition and treatment plan as described except to the extent set forth below.
[2017-07-09] MEDS ORDERED: *HR* Propofol 200 MG/20 ML VIAL IVP ONE ×2 (14:21)
[2017-07-09] MEDS ORDERED: Dexamethasone 4 MG/ML VIAL ONE (14:49)
[2017-07-09] MEDS ORDERED: Ondansetron 4 MG/2 ML VIAL ONE (14:49)
[2017-07-09] MEDS ORDERED: *HR* FentaNYL (PF) 100 MCG/2 ML VIAL ONE (15:00)
[2017-07-09] MEDS ORDERED: *HR* Morphine 2 MG/ML SYRINGE IVP PRN (15:47)
[2017-07-09] MEDS ORDERED: Ondansetron 4 MG/2 ML VIAL IVP ONE (15:47)
[2017-07-09] MEDS ORDERED: *HR* Promethazine 25 MG/ML VIAL IVP PRN (15:47)
--- NOTE | 2017-07-09 16:06 | Anesthesia Evaluation Post Op ---
Date of Encounter: 07/09/17 Time of Encounter: 16:06 - Vital Signs Vital Signs: Vital Signs/O2 Sat, Most Current Temp Pulse Resp BP Pulse Ox 98.6 F 85 20 91/60 97 07/09/17 15:40 07/09/17 16:00 07/09/17 16:00 07/09/17 16:00 07/09/17 16:00 - Lungs Lungs: Clear Ascult./Percussion - Airway Airway: Non-obstructed - Cardiovascular Regular Rate - Mental Status Mental Status: Alert & Oriented, Answers Appropriately - Pain Pain Scale: 0 Pain Scale used: Numeric (1 - 10) - Nausea Vomiting Nausea Vomiting: Not Present - Hydration Hydration: NPO, Has not voided - Discharge PostOp Status: Transfer Patient to floor
[2017-07-09] MEDS ORDERED: 0.9 % Sodium Chloride 500 ML IVC ONE (18:44)
[2017-07-09] MEDS: Insulin DETEMIR 100 UNIT/ML X5UNITS SQ SCH (21:57)
[2017-07-09] MEDS: Melatonin 3 MG TABLET PO PRN (21:57)
[2017-07-10] MEDS: Aspirin Enteric Coated 81 MG Tablet PO SCH (08:06)
[2017-07-10] MEDS: Insulin LISPRO 300 UNITS/3 ML VIAL SQ SCH ×4 (08:06→21:53)
--- NOTE | 2017-07-10 09:05 | Internal Med Progress Note ---
Date of Encounter: 07/10/17 Time of Encounter: 08:30 - Assessment and plan (1) Esophageal stricture Current Visit: Yes Status: Acute Assessment and plan: s/p EGD 07/09 Biopsies taken Per GI, clear liquid diet. PPI twice a day, Carafate 4 times a day. Patient to be rescoped if biopsies do not show carcinoma. (2) Regurgitation of food Current Visit: Yes Status: Acute Assessment and plan: As above. Clear liquid diet as tolerated. (3) Diabetes 1.5, managed as type 1 Current Visit: Yes Status: Chronic Assessment and plan: Controlled, continue current meds FSACHS (4) GERD (gastroesophageal reflux disease) Current Visit: Yes Status: Chronic Assessment and plan: Chronic, continue home meds Qualifiers: Esophagitis presence: esophagitis presence not specified Qualified Code(s) : K21.9 - Gastro-esophageal reflux disease without esophagitis (5) COPD (chronic obstructive pulmonary disease) Current Visit: Yes Status: Chronic Assessment and plan: Chest is clear, with no exacerbation, duonebs prn Qualifiers: COPD type: emphysema Emphysema type: panlobular Qualified Code(s): J43.1 - Panlobular emphysema (6) Hypokalemia Current Visit: Yes Status: Acute Assessment and plan: Replaced, potassium is normal today (7) Malnutrition Current Visit: Yes Status: Chronic Assessment and plan: eval by surveyor geophysical prospecting noted Continue current are No indication for TPN patient should improve after esophageal dilatation with stent placement. Qualifiers: Malnutrition type: protein-calorie malnutrition Protein-calorie malnutrition severity: severe Qualified Code(s): E43 - Unspecified severe protein-calorie malnutrition - Subjective Interval history: Seen and evaluated at bedside with his brother 51-year-old male with history of MRDD, diabetes mellitus, esophageal strictures with multiple history of dilatation, chronic respiratory failure home oxygen intermittently. He has reflux esophagitis with known strictures, known to GI s/p dilatation He is s/p EGD 07/09/17 with findings of seevre upper esophagral stricture and food residue, biopsies were taken and dilatation was performed He is also chronically with low blood pressures, asymptomatic No new complains We will start him on clear liquid per GI recommendation, as well as BID PPI and carafate Per gi, stent will be placed if biopsies are negative fir esophageal CA - Constitutional Vitals: Temp Pulse Resp BP Pulse Ox 97.7 F 48 18 88/55 96 07/10/17 07:25 07/10/17 07:25 07/10/17 07:25 07/10/17 07:25 07/10/17 07:25 General appearance: Present: cachectic, A&O X 3, no acute distress - Head Head exam: Present: atraumatic, normocephalic - Eye Eye exam: Present: PERRL, conjuntiva pink, sclera anicteric Pupils: Present: PERRL - Neck Neck exam general surgery: Present: supple, trachea midline. Absent: lymphadenopathy - Respiratory Respiratory exam: Present: CTAB. Absent: accessory muscle use, rales, rhonchi, wheezes - Cardiovascular Cardiovascular exam: Present: RRR, +S1, +S2. Absent: diastolic murmur, gallop, rubs, systolic murmur - GI/Abdominal GI/Abdominal exam: Present: normal bowel sounds, soft, no peritoneal signs. Absent: distended, tenderness - Extremities Exam Extremities exam: Present: warm, radial pulses palpable and symmetrical. Absent : calf tenderness, cyanotic, pedal edema - Neurological Exam Neurological exam: Present: alert, CN II-XII intact, oriented X3, no focal deficits. Absent: pronater drift, facial droop, speech deficit - Skin Skin exam: Present: dry, intact Internal Medicine: Result - Labs CBC & Chem 7: 07/09/17 04:09 07/09/17 17:14 Labs: BMP 07/09/17 17:14 Potassium 4.2 D - Impressions Impressions Chest X-Ray 07/09/17 14:30 IMPRESSION: Intraprocedural fluoroscopic spot images as above. See separate procedure report for more information. D/ / Joel Humphreys MD / Joel Humphreys MD Interpreting Provider: Joel Humphreys MD Fluoroscopy 07/09/17 14:30 IMPRESSION: Intraprocedural fluoroscopic spot images as above. See separate procedure report for more information. D/ / Joel Humphreys MD / Joel Humphreys MD Interpreting Provider: Joel Humphreys MD Consult Discharge Plan - Plan Referrals: NONE,PCP [Primary Care Provider] -
--- NOTE | 2017-07-10 09:29 | Event Note ---
Date of Encounter: 07/10/17 Time of Encounter: 09:25 Pt is status post EGD with dilation yesterday. Biopsies were taken, if pathology is negative for cancer will proceed with esophageal stent placement, likely on .
[2017-07-10] MEDS: levETIRAcetam 500 MG/5 ML UDC PO SCH ×2 (10:03→21:49)
[2017-07-10] MEDS: Sucralfate 1 GM TABLET PO SCH ×3 (12:03→21:52)
[2017-07-10] MEDS: Insulin DETEMIR 100 UNIT/ML X5UNITS SQ SCH (21:53)
[2017-07-10] MEDS: Melatonin 3 MG TABLET PO PRN (21:53)
[2017-07-11] MEDS ORDERED: *HR* Dextrose 50 % in Water (Syg) 50 ML SYRINGE IVP ONE (07:51)
[2017-07-11] MEDS: Sucralfate 1 GM TABLET PO SCH ×4 (08:02→20:38)
[2017-07-11] MEDS: Aspirin Enteric Coated 81 MG Tablet PO SCH (08:02)
[2017-07-11] MEDS: Insulin LISPRO 300 UNITS/3 ML VIAL SQ SCH ×3 (08:06→17:55)
[2017-07-11] MEDS: levETIRAcetam 500 MG/5 ML UDC PO SCH ×2 (09:35→20:38)
--- NOTE | 2017-07-11 12:18 | Internal Med Progress Note ---
Date of Encounter: 07/11/17 Time of Encounter: 12:16 - Assessment and plan (1) Esophageal stricture Current Visit: Yes Status: Acute Assessment and plan: s/p EGD 07/09 Biopsies taken Per GI, clear liquid diet. PPI twice a day, Carafate 4 times a day. Patient to be rescoped if biopsies do not show carcinoma. (2) Regurgitation of food Current Visit: Yes Status: Acute Assessment and plan: As above. Clear liquid diet as tolerated. (3) Hypokalemia Current Visit: Yes Status: Acute Assessment and plan: Replaced, potassium is normal today (4) Malnutrition Current Visit: Yes Status: Chronic Assessment and plan: Severe protein calorie malnutrition eval by surveillance agent noted Continue current are No indication for TPN patient should improve after esophageal dilatation with stent placement. Qualifiers: Malnutrition type: protein-calorie malnutrition Protein-calorie malnutrition severity: severe Qualified Code(s): E43 - Unspecified severe protein-calorie malnutrition (5) Diabetes mellitus type 2 in nonobese Current Visit: No Status: Acute Assessment and plan: Patient has severe hypoglycemia, was stopped detmir and lisppro at (6) GERD (gastroesophageal reflux disease) Current Visit: Yes Status: Chronic Assessment and plan: Chronic, continue home meds Qualifiers: Esophagitis presence: esophagitis presence not specified Qualified Code(s) : K21.9 - Gastro-esophageal reflux disease without esophagitis (7) COPD (chronic obstructive pulmonary disease) Current Visit: Yes Status: Chronic Assessment and plan: Chest is clear, with no exacerbation, duonebs prn Not on home O2, no wheezing. Qualifiers: COPD type: emphysema Emphysema type: panlobular Qualified Code(s): J43.1 - Panlobular emphysema (8) DVT prophylaxis Current Visit: No Status: Acute Assessment and plan: not on heparin due to procedures (9) Hypotension Current Visit: Yes Status: Acute Assessment and plan: Patient has chronic hypotension, asymptomatic. Today he has not been able to eating for over last few days. Try IV fluids bolus. Qualifiers: Hypotension type: idiopathic hypotension Qualified Code(s): I95.0 - Idiopathic hypotension - Time Spent With Patient 25 - 35 minutes - Subjective Interval history: Patient is alert and oriented to 2, not to time, he denies abdominal pain, he said he does not have appetite does not want to eat do not feel hungry. His BP has been running lower blood asymptomatic he looks comfortable. Abdominal is soft nontender. 51-year-old male with history of MRDD, diabetes mellitus, esophageal strictures with multiple history of dilatation, chronic respiratory failure home oxygen intermittently. He has reflux esophagitis with known strictures, known to GI s/p dilatation He is s/p EGD 07/09/17 with findings of seevre upper esophagral stricture and food residue, biopsies were taken and dilatation was performed He is also chronically with low blood pressures, asymptomatic No new complains He is on clear liquid per GI recommendation, as well as BID PPI and carafate Per gi, stent will be placed if biopsies are negative fir esophageal CA - Constitutional Vitals: Temp Pulse Resp BP Pulse Ox 98.1 F 48 12 62/34 96 07/11/17 11:19 07/11/17 11:19 07/11/17 11:19 07/11/17 11:19 07/11/17 11:19 General appearance: Present: cachectic, A&O X 2, no acute distress Exam: CONSTITUTIONAL: patient appears as an age appropriate male in no acute distress. EYES Clear sclerae, bilateral pupils are equal, reactive to light. EMOI. RESPIRATORY: No accessory muscle use, bilateral clear to auscultation, no wheezing, no crackles/rales. CARDIOVASCULAR: Regular heart rate, normal S1 and S2, no murmurs GASTROINTESTINAL: bowel sounds present, soft, no tenderness. MUSCULOSKELETAL: Joints in normal range of motion, no clubbing, no edema, no cyanosis. Bilateral peripheral pulses 2+. NEUROLOGIC: CN II to XII are grossly intact, no focal neurological deficit. Internal Medicine: Result - Labs CBC & Chem 7: 07/09/17 04:09 07/09/17 17:14 Consult Discharge Plan - Plan Referrals: NONE,PCP [Primary Care Provider] -
[2017-07-11] MEDS ORDERED: Ringers Solution, Lactated 500 ML IVC ONE (12:28)
[2017-07-11] MEDS ORDERED: Ringers Solution, Lactated 1,000 ML ONE (12:57)
[2017-07-12 05:21] LABS: Basophils % 0.5 %; Eosinophils # 0.2 K/mcL (0.0-0.6); Eosinophils % 3.4 %; Hematocrit 29.7 % (37.5-50.1); Lymphocytes # 2.1 K/mcL (0.6-4.6); Lymphocytes % 47.7 %; Mean Corpuscular Hemoglobin 27.9 pg (28.0-33.3); Mean Corpuscular Volume 84.6 fL (83.0-100.0); Mean Platelet Volume 9.4 fL (9.4-12.4); Monocytes # 0.3 K/mcL (0.0-1.3); Monocytes % 7.3 %; Neutrophils # 1.8 K/mcL (1.6-8.9); Platelet Count 156 K/mcL (140-400); Red Blood Count 3.51 M/mcL (4.19-5.50); Red Cell Distribution Width 12.9 % (11.5-14.5); Segmented Neutrophils % 41.1 %
[2017-07-12 05:23] LABS: Hemoglobin 9.8 g/dL (12.9-16.9)
[2017-07-12 05:43] LABS: BUN/Creatinine Ratio 15 (6-26); Blood Urea Nitrogen 7 mg/dL (6-20); Calcium 8.7 mg/dL (8.6-10.3); Carbon Dioxide 28 mEq/L (23-29); Chloride 112 mEq/L (98-107); Glucose 145 mg/dL (70-105); Magnesium 1.6 mg/dL (1.6-2.6); Osmolality,Calculated 299 (280-300); Potassium 2.8 mEq/L (3.5-5.1); Sodium 144 mEq/L (136-145); eGFR For African Americans > 60 (> 60); eGFR For Non-African Americans > 60 (> 60)
[2017-07-12] MEDS: Sucralfate 1 GM TABLET PO SCH ×4 (08:13→21:48)
[2017-07-12] MEDS: Aspirin Enteric Coated 81 MG Tablet PO SCH (08:13)
[2017-07-12] MEDS: Insulin LISPRO 300 UNITS/3 ML VIAL SQ SCH ×3 (08:16→17:53)
[2017-07-12] MEDS ORDERED: Ringers Solution, Lactated 500 ML IVC ONE (10:01)
--- NOTE | 2017-07-12 10:05 | Internal Med Progress Note ---
Date of Encounter: 07/12/17 Time of Encounter: 10:03 - Assessment and plan (1) Esophageal stricture Current Visit: Yes Status: Acute Assessment and plan: s/p EGD 07/09 Biopsies taken Per GI, clear liquid diet. PPI twice a day, Carafate 4 times a day. EGD today for stents placement. (2) Regurgitation of food Current Visit: Yes Status: Acute Assessment and plan: As above. Nothing by mouth for stents placement (3) Hypokalemia Current Visit: Yes Status: Acute Assessment and plan: Severe hypokalemia we will replace was IV 80 mEq (4) Malnutrition Current Visit: Yes Status: Chronic Assessment and plan: Severe protein calorie malnutrition eval by prototype machine operator noted Continue current are No indication for TPN patient should improve after esophageal dilatation with stent placement. Qualifiers: Malnutrition type: protein-calorie malnutrition Protein-calorie malnutrition severity: severe Qualified Code(s): E43 - Unspecified severe protein-calorie malnutrition (5) Diabetes mellitus type 2 in nonobese Current Visit: No Status: Acute Assessment and plan: Patient has severe hypoglycemia, was stopped detmir and lisppro at HS Hypoglycemia improved (6) GERD (gastroesophageal reflux disease) Current Visit: Yes Status: Chronic Assessment and plan: Chronic, continue home meds Qualifiers: Esophagitis presence: esophagitis presence not specified Qualified Code(s) : K21.9 - Gastro-esophageal reflux disease without esophagitis (7) COPD (chronic obstructive pulmonary disease) Current Visit: Yes Status: Chronic Assessment and plan: Chest is clear, with no exacerbation, duonebs prn Not on home O2, no wheezing. Qualifiers: COPD type: emphysema Emphysema type: panlobular Qualified Code(s): J43.1 - Panlobular emphysema (8) DVT prophylaxis Current Visit: No Status: Acute Assessment and plan: not on heparin due to procedures (9) Hypotension Current Visit: Yes Status: Acute Assessment and plan: Patient has chronic hypotension, asymptomatic. Today he has not been able to eating for over last few days. Try IV fluids bolus. BP improved after IV fluids bolus. Qualifiers: Hypotension type: idiopathic hypotension Qualified Code(s): I95.0 - Idiopathic hypotension - Time Spent With Patient 25 - 35 minutes - Subjective Interval history: Patient is alert and oriented to 2, not to time, he denies abdominal pain, he said he does not have appetite does not want to eat do not feel hungry. His BP has been running lower blood asymptomatic he looks comfortable. Abdominal is soft nontender. 51-year-old male with history of MRDD, diabetes mellitus, esophageal strictures with multiple history of dilatation, chronic respiratory failure home oxygen intermittently. He has reflux esophagitis with known strictures, known to GI s/p dilatation He is s/p EGD 07/09/17 with findings of seevre upper esophagral stricture and food residue, biopsies were taken and dilatation was performed He is also chronically with low blood pressures, asymptomatic No new complains He is on clear liquid per GI recommendation, as well as BID PPI and carafate Patient is doing well, blood pressure improved after bolus fluids. He is nothing by mouth for stents placements today We will do another fluids bolus 500 mL, and place potassium and magnesium. - Constitutional Vitals: Temp Pulse Resp BP Pulse Ox 98.1 F 41 16 107/55 97 07/12/17 08:12 07/12/17 08:12 07/12/17 08:12 07/12/17 08:12 07/12/17 08:12 General appearance: Present: cachectic, A&O X 2, no acute distress Exam: CONSTITUTIONAL: patient appears as an age appropriate male in no acute distress. EYES Clear sclerae, bilateral pupils are equal, reactive to light. EMOI. RESPIRATORY: No accessory muscle use, bilateral clear to auscultation, no wheezing, no crackles/rales. CARDIOVASCULAR: Regular heart rate, normal S1 and S2, no murmurs GASTROINTESTINAL: bowel sounds present, soft, no tenderness. MUSCULOSKELETAL: Joints in normal range of motion, no clubbing, no edema, no cyanosis. Bilateral peripheral pulses 2+. NEUROLOGIC: CN II to XII are grossly intact, no focal neurological deficit. Internal Medicine: Result - Labs CBC & Chem 7: 07/12/17 04:19 07/12/17 04:19 Labs: Short CBC 07/12/17 Range/Units 04:19 WBC 4.4 (4.3-11.1) K/mcL Hgb 9.8 L D (12.9-16.9) g/dL Hct 29.7 L (37.5-50.1) % Plt Count 156 (140-400) K/mcL Neutrophils # 1.8 (1.6-8.9) K/mcL BMP 07/12/17 04:19 Sodium 144 Potassium 2.8 L Chloride 112 H Carbon Dioxide 28 BUN 7 Creatinine 0.48 L Glucose 145 H Calcium 8.7 Consult Discharge Plan - Plan Referrals: NONE,PCP [Primary Care Provider] -
[2017-07-12] MEDS: levETIRAcetam 500 MG/5 ML UDC PO SCH ×3 (10:38→21:52)
[2017-07-12] MEDS: Potassium Chloride 40 MEQ, Lidocaine 1% 2 ML in D5% in Water 500 ML IVPB ONE ×2 (12:21→17:52)
[2017-07-12] MEDS ORDERED: 0.9 % Sodium Chloride 500 ML IVC SCH (12:45)
--- NOTE | 2017-07-12 12:50 | Anesthesia Evaluation PreOp ---
Date of Encounter: 07/12/17 Time of Encounter: 12:48 - Past History Planned Operation: EGD, Stent Placement Cardiac History: HTN, Hyperlipidemia Pulmonary History: Former smoker (quit 6 months ago, smoked for 20 years), Asthma, COPD LIGHT OUT EXAMINER History: Seizures (last seizure 9 months ago) Other Medical History: Diabetes Type II, GERD Anesthesia History: No Prior Anesthetic Complications, Past Anesthesia Alcohol Use: occasionally, heavy Drug use: none Medications and Allergies Insulin LISPRO [HumaLOG] 1 - 5 units SQ ACHS 05/10/16 [History] Aspirin [Lo-Dose Aspirin EC] 81 mg PO DAILY 06/28/16 [History] Lipase/Protease/Amylase [Creon Dr 12,000 Units Capsule] 1 cap PO TIDAC 06/28/16 [History] Insulin Glargine,Hum.rec.anlog [Lantus Solostar] 14 unit SQ HS 09/11/16 [History ] Acetaminophen [Tylenol] 650 mg PO Q4HR PRN 04/24/17 [History] Atorvastatin [Lipitor] 40 mg PO HS 04/24/17 [History] LevETIRAcetam [Keppra] 750 mg PO BID 04/24/17 [History] Melatonin [Melatin] 9 mg PO HS 04/24/17 [History] Mv-Mn/FA/Vit K/Lycop/Lut/Coq10 [Daily Multivitamin Capsule] 1 tab PO DAILY 04/24 [History] Ondansetron [Zofran] 8 mg PO Q6H PRN 04/24/17 [History] Pantoprazole Sodium 40 mg PO QPM 04/24/17 [History] Polyethylene Glycol 3350 [MiraLAX] 17 gm PO QPM 04/24/17 [History] Sennosides/Docusate Sodium [Senna Plus] 2 each PO BID 04/24/17 [History] Sertraline [Zoloft] 50 mg PO QPM 04/24/17 [History] Insulin LISPRO [HumaLOG] 14 unit SQ TIDWM 07/08/17 [History] Potassium Chloride [Klor-Con 10] 10 meq PO BID 07/08/17 [History] Sucralfate [Carafate] 1 gm PO BID 07/08/17 [History] 3 Allergy/AdvReac Type Severity Reaction Status Date / Time No Known Allergies Allergy Verified 07/06/17 16:18 - Meds/Allergy Pre-op Review Medications Reviewed: Yes Allergies Reviewed: Yes Beta Blockers on Current Med List: No Anesthesia Results - Labs 07/12/17 04:19 07/12/17 04:19 - Imaging EKG: report reviewed (11/26/2016 SINUS TACHYCARDIA, POSSIBLE ATRIAL FLUTTER ANTEROSEPTAL MYOCARDIAL INFARCTION, OF INDETERMINATE AGE) Additional studies: Stress 06/03/2015 Impression: Patient had mild chest pain with regadenoson (non-specific finding). There were mild non-specific ST-T wave changes with regadenoson. Technically difficult/limited study. There is a high level of subdiaphragmatic activity which limits the assessment of the inferior wall. Gated LVEF = 63%. The inferior wall cannot be adequately assessed due to subdiaphragmatic artifact. All other segmental perfusion normal in rest and stress. Clinical correlation suggested. An alternative stress testing modality (stress echo) can be considered if clinically indicated. Anesthesia Exam Vital Signs/O2 Sat/Glucose, Most Recent Temp Pulse Resp BP Pulse Ox 98.1 F 42 16 108/60 97 07/12/17 11:06 07/12/17 12:34 07/12/17 12:34 07/12/17 12:34 07/12/17 12:34 Blood Glucose* 143 Height: 5'6'' Weight: 100 lbs NPO (# of Hours): 8 Pain Scale: 0 Pain Scale Used: Numeric (1 - 10) - HEENT Pupil (Motor): EOMI Mallampati: II Teeth: Edentulous Oral Opening: Greater than 3 - LIGHT OUT EXAMINER LOC: Oriented LIGHT OUT EXAMINER Motor: Normal RUE, Normal LUE, Normal RLE, Normal LLE, Normal Face LIGHT OUT EXAMINER Sensory: Normal: RUE, LUE, RLE, LLE, Face - Cardiac Rhythm: Regular Murmur: None - Pulmonary Breath Sounds: bilateral Clear Respiratory Effort: Symmetrical Anesthesia Assess/Plan ASA Score: 3 Modified Lorraine Scale for Level of Consciousness: Cooperative, oriented, and tranquil Anesthetic Plan: General Monitoring Plan: Standard Monitors Recovery Plan: PACU
[2017-07-12] MEDS ORDERED: EPHEDrine 50 MG/ML VIAL ONE (13:31)
[2017-07-12] MEDS ORDERED: *HR* Propofol 200 MG/20 ML VIAL IVP ONE (13:31)
[2017-07-12] MEDS ORDERED: Lidocaine -MPF 2% 2 ML VIAL ONE (13:54)
[2017-07-12] MEDS ORDERED: Dexamethasone 4 MG/ML VIAL ONE (13:55)
[2017-07-12] MEDS ORDERED: *HR* Succinylcholine 200 MG/10 ML VIAL IVP ONE (13:55)
[2017-07-12] MEDS ORDERED: *HR* Morphine 2 MG/ML SYRINGE IVP PRN (13:58)
[2017-07-12] MEDS ORDERED: *HR* Promethazine 25 MG/ML VIAL IVP PRN (13:58)
[2017-07-12] MEDS ORDERED: Potassium Chloride 40 MEQ, Lidocaine 1% 2 ML in D5% in Water 500 ML IVPB ONE (14:53)
--- NOTE | 2017-07-12 14:55 | Anesthesia Evaluation Post Op ---
Date of Encounter: 07/12/17 Time of Encounter: 15:00 - Vital Signs Vital Signs: Vital Signs/O2 Sat/Glucose, Most Current Temp Pulse Resp BP Pulse Ox 07/12/17 14:44 57 16 141/82 98 07/12/17 14:34 58 16 133/78 98 07/12/17 14:24 97.4 F L 66 14 135/81 100 07/12/17 12:34 42 16 108/60 97 07/12/17 11:06 98.1 F 42 16 106/65 98 - Lungs Lungs: Clear Ascult./Percussion - Airway Airway: Non-obstructed - Cardiovascular Regular Rate - Mental Status Mental Status: Alert & Oriented, Answers Appropriately - Pain Pain Scale: 0 - Nausea Vomiting Nausea Vomiting: Not Present - Hydration Hydration: NPO, Tolerates oral liquids, Has not voided - Discharge PostOp Status: Discharge Patient to home
[2017-07-12] MEDS: Melatonin 3 MG TABLET PO PRN (21:57)
[2017-07-13] MEDS: Sucralfate 1 GM TABLET PO SCH ×5 (06:34→22:10)
[2017-07-13 06:59] LABS: BUN/Creatinine Ratio 11 (6-26); Blood Urea Nitrogen 6 mg/dL (6-20); Calcium 8.6 mg/dL (8.6-10.3); Carbon Dioxide 24 mEq/L (23-29); Chloride 107 mEq/L (98-107); Glucose 260 mg/dL (70-105); Magnesium 1.7 mg/dL (1.6-2.6); Osmolality,Calculated 291 (280-300); Potassium 3.9 mEq/L (3.5-5.1); Sodium 137 mEq/L (136-145); eGFR For African Americans > 60 (> 60); eGFR For Non-African Americans > 60 (> 60)
[2017-07-13] MEDS: levETIRAcetam 500 MG/5 ML UDC PO SCH ×2 (08:22→22:10)
[2017-07-13] MEDS: Aspirin Enteric Coated 81 MG Tablet PO SCH (08:23)
[2017-07-13] MEDS: Insulin LISPRO 300 UNITS/3 ML VIAL SQ SCH ×3 (08:23→17:33)
--- NOTE | 2017-07-13 13:37 | Internal Med Progress Note ---
Date of Encounter: 07/13/17 Time of Encounter: 13:36 - Assessment and plan (1) Esophageal stricture Current Visit: Yes Status: Acute Assessment and plan: s/p EGD 07/09 Biopsies taken Per GI, clear liquid diet. PPI twice a day, Carafate 4 times a day. EGD stents placement on 07/12, patient tolerated procedure, but developed abdominal pain since then unalbe to tolerate diet, GI is called, will start IVF, madd PPI IV. (2) Regurgitation of food Current Visit: Yes Status: Acute Assessment and plan: As above. s/p stents placement (3) Hypokalemia Current Visit: Yes Status: Acute Assessment and plan: resolved (4) Malnutrition Current Visit: Yes Status: Chronic Assessment and plan: Severe protein calorie malnutrition eval by gwot ia/ilo intelligence support noted Continue current are No indication for TPN patient should improve after esophageal dilatation with stent placement. Qualifiers: Malnutrition type: protein-calorie malnutrition Protein-calorie malnutrition severity: severe Qualified Code(s): E43 - Unspecified severe protein-calorie malnutrition (5) Diabetes mellitus type 2 in nonobese Current Visit: No Status: Acute Assessment and plan: Patient has severe hypoglycemia, was stopped detmir and lisppro at HS Hypoglycemia improved (6) GERD (gastroesophageal reflux disease) Current Visit: Yes Status: Chronic Assessment and plan: Chronic, continue home meds Qualifiers: Esophagitis presence: esophagitis presence not specified Qualified Code(s) : K21.9 - Gastro-esophageal reflux disease without esophagitis (7) COPD (chronic obstructive pulmonary disease) Current Visit: Yes Status: Chronic Assessment and plan: Chest is clear, with no exacerbation, duonebs prn Not on home O2, no wheezing. Qualifiers: COPD type: emphysema Emphysema type: panlobular Qualified Code(s): J43.1 - Panlobular emphysema (8) DVT prophylaxis Current Visit: No Status: Acute Assessment and plan: not on heparin due to procedures (9) Hypotension Current Visit: Yes Status: Acute Assessment and plan: Patient has chronic hypotension, asymptomatic. Today he has not been able to eating for over last few days. Try IV fluids bolus. BP improved after IV fluids bolus. Qualifiers: Hypotension type: idiopathic hypotension Qualified Code(s): I95.0 - Idiopathic hypotension - Time Spent With Patient 25 - 35 minutes - Subjective Interval history: Patient is alert and oriented to 2, not to time, he denies abdominal pain, he said he does not have appetite does not want to eat do not feel hungry. His BP has been running lower blood asymptomatic he looks comfortable. Abdominal is soft nontender. 51-year-old male with history of MRDD, diabetes mellitus, esophageal strictures with multiple history of dilatation, chronic respiratory failure home oxygen intermittently. He has reflux esophagitis with known strictures, known to GI s/p dilatation He is s/p EGD 07/09/17 with findings of seevre upper esophagral stricture and food residue, biopsies were taken and dilatation was performed He is also chronically with low blood pressures, asymptomatic No new complains He is on full liquid per GI recommendation, as well as BID PPI and carafate Patient is doing well, blood pressure improved after bolus fluids. patient c/o severe epigastric pain after procedure, refused diet, abdomen is soft, CXR and KUB are unremarkable GI is mpaged, await fro Dr Can call back - Constitutional Vitals: Temp Pulse Resp BP Pulse Ox 97.9 F 52 16 132/76 97 07/13/17 10:50 07/13/17 10:50 07/13/17 10:50 07/13/17 10:50 07/13/17 10:50 General appearance: Present: cachectic, A&O X 2, no acute distress Exam: CONSTITUTIONAL: patient appears as an age appropriate male in no acute distress. EYES Clear sclerae, bilateral pupils are equal, reactive to light. EMOI. RESPIRATORY: No accessory muscle use, bilateral clear to auscultation, no wheezing, no crackles/rales. CARDIOVASCULAR: Regular heart rate, normal S1 and S2, no murmurs GASTROINTESTINAL: bowel sounds present, soft, tenderness to epigastric lesion MUSCULOSKELETAL: Joints in normal range of motion, no clubbing, no edema, no cyanosis. Bilateral peripheral pulses 2+. NEUROLOGIC: CN II to XII are grossly intact, no focal neurological deficit. Internal Medicine: Result - Labs CBC & Chem 7: 07/12/17 04:19 07/13/17 05:12 Labs: BMP 07/13/17 05:12 Sodium 137 Potassium 3.9 Chloride 107 Carbon Dioxide 24 BUN 6 Creatinine 0.53 L Glucose 260 H Calcium 8.6 - Impressions Impressions Chest X-Ray 07/12/17 00:00 IMPRESSION: Intraprocedural fluoroscopic spot images as above. See separate procedure report for more information. D/ / Adalid Valle MD / Adalid Valle MD Interpreting Provider: Adalid Valle MD Fluoroscopy 07/12/17 00:00 IMPRESSION: Intraprocedural fluoroscopic spot images as above. See separate procedure report for more information. D/ / Adalid Valle MD / Adalid Valle MD Interpreting Provider: Adalid Valle MD X-Ray 07/13/17 10:47 IMPRESSION: Indeterminate bowel-gas pattern due to lack of small bowel gas. D/ / Nick Grewal MD / Nick Grewal MD Interpreting Provider: Nick Grewal MD Chest X-Ray 07/13/17 11:01 IMPRESSION: Emphysema with apical bullous changes and bilateral parahilar chronic lung changes. D/ / Vlad Linares MD / Vlad Linares MD Interpreting Provider: Vlad Linares MD Consult Discharge Plan - Plan Referrals: NONE,PCP [Primary Care Provider] -
--- NOTE | 2017-07-13 14:34 | Event Note ---
Date of Encounter: 07/13/17 Time of Encounter: 12:15 pt seen, compilaing epigastric pain. O/E Abd soft, A: Bening esop stricture s/p fully covered metal stent. X-rays showes stent in place Rec: Pain control Clear advance as tolerated PPI BID
[2017-07-13] MEDS: Ringers Solution, Lactated 1,000 ML IVC SCH (15:03)
[2017-07-13] MEDS: Hyoscyamine SL 0.125 MG TAB.SUBL SL PRN (15:03)
[2017-07-13] MEDS: Pantoprazole 40 MG VIAL IVP SCH (17:33)
[2017-07-13] MEDS: *HR* Morphine 2 MG/ML SYRINGE IVP PRN ×2 (19:45→22:16)
[2017-07-14] MEDS: Ringers Solution, Lactated 1,000 ML IVC SCH ×2 (00:45→10:48)
[2017-07-14] MEDS: *HR* Morphine 2 MG/ML SYRINGE IVP PRN (03:16)
[2017-07-14] MEDS: Sucralfate 1 GM TABLET PO SCH ×4 (06:27→23:37)
[2017-07-14] MEDS: Pantoprazole 40 MG VIAL IVP SCH (06:27)
[2017-07-14 06:57] LABS: Alanine Aminotransferase 6 Units/L (7-52); Albumin 2.5 g/dL (3.5-5.7); Albumin/Globulin Ratio 1.4 (1.1-2.2); Alkaline Phosphatase 60 Units/L (34-104); Aspartate Amino Transferase 9 Units/L (13-39); BUN/Creatinine Ratio 9 (6-26); Bilirubin,Direct 0.1 mg/dL (0.0-0.2); Bilirubin,Indirect 0.3 mg/dL (0.0-1.2); Bilirubin,Total 0.4 mg/dL (0.3-1.0); Blood Urea Nitrogen 4 mg/dL (6-20); Calcium 7.8 mg/dL (8.6-10.3); Carbon Dioxide 23 mEq/L (23-29); Chloride 108 mEq/L (98-107); Globulin 1.8 g/dL (2.4-3.5); Glucose 193 mg/dL (70-105); Magnesium 1.3 mg/dL (1.6-2.6); Osmolality,Calculated 282 (280-300); Potassium 3.4 mEq/L (3.5-5.1); Sodium 135 mEq/L (136-145); Total Protein 4.3 g/dL (6.4-8.9); eGFR For African Americans > 60 (> 60); eGFR For Non-African Americans > 60 (> 60)
[2017-07-14] MEDS: Aspirin Enteric Coated 81 MG Tablet PO SCH (08:01)
[2017-07-14] MEDS: Insulin LISPRO 300 UNITS/3 ML VIAL SQ SCH ×3 (08:01→16:49)
--- NOTE | 2017-07-14 08:58 | Gastroenterology Progress Note ---
Date of Encounter: 07/14/17 Time of Encounter: 08:53 - Assessment and plan (1) Esophageal stricture Current Visit: Yes Status: Acute (2) Weight loss Current Visit: Yes Status: Acute (3) COPD (chronic obstructive pulmonary disease) Current Visit: Yes Status: Chronic Qualifiers: COPD type: emphysema Emphysema type: panlobular Qualified Code(s): J43.1 - Panlobular emphysema (4) Nausea Current Visit: Yes Status: Acute (5) Diabetes 1.5, managed as type 1 Current Visit: Yes Status: Chronic - Time Spent With Patient Total time spent is greater than 50% in coordination of care (as documented) at patient's floor/unit and/or counseling patient: less than 15 minutes - Subjective Interval history: Patient is alert and oriented to 2, not to time, he denies abdominal pain, he said he does not have appetite does not want to eat do not feel hungry. His BP has been running lower blood asymptomatic he looks comfortable. Abdominal is soft nontender. 51-year-old male with history of MRDD, diabetes mellitus, esophageal strictures with multiple history of dilatation, chronic respiratory failure home oxygen intermittently. He has reflux esophagitis with known strictures, known to GI s/p dilatation He is s/p EGD 07/09/17 with findings of seevre upper esophagral stricture and food residue, biopsies were taken and dilatation was performed He is also chronically with low blood pressures, asymptomatic No new complains He is on full liquid per GI recommendation, as well as BID PPI and carafate Patient is doing well, blood pressure improved after bolus fluids. patient c/o severe epigastric pain after procedure, refused diet, abdomen is soft, CXR and KUB are unremarkable GI is mpaged, await fro Dr Can call back GASTROENTEROLOGY: S/P placement of esophageal stent [address] Dukes. Patient is doing well this morning. He has improved significantly with respect to his symptoms since yesterday. His pain has reduced significantly and he has a good appetite today. We discussed at length regarding nutrition. Will push Ensure 3-4 cans/day ( strawberry/vanilla), pureed diet (patient complained about that but, understands the science behind it). WIll do calorie count today. Consider discharge tomorrow if, patient taking adequately orally Abdomen soft, nontender. Good bowel sounds. - Constitutional Vitals: Temp Pulse Resp BP Pulse Ox 98.5 F 49 16 79/48 92 07/14/17 07:51 07/14/17 07:51 07/14/17 07:51 07/14/17 07:51 07/14/17 07:51 - GI/Abdominal GI/Abdominal exam: Present: normal bowel sounds, soft, no peritoneal signs Results - Labs CBC & Chem 7: 07/12/17 04:19 07/14/17 06:27 Labs: Last Result Calcium 7.8 mg/dL (8.6-10.3) L 07/14/17 06:27 Entire Visit Hgb 9.8 g/dL (12.9-16.9) L D 07/12/17 04:19 Hct 29.7 % (37.5-50.1) L 07/12/17 04:19 Total Bilirubin 0.4 mg/dL (0.3-1.0) 07/14/17 06:27 AST 9 Units/L (13-39) L 07/14/17 06:27 ALT 6 Units/L (7-52) L 07/14/17 06:27 Lipase < 3 Units/L (11-82) L 07/06/17 16:59 - Impressions Impressions KUB X-Ray 07/13/17 10:47 IMPRESSION: Indeterminate bowel-gas pattern due to lack of small bowel gas. D/ / Nick Grewal MD / Nick Grewal MD Interpreting Provider: Nick Grewal MD Chest X-Ray 07/13/17 11:01 IMPRESSION: Emphysema with apical bullous changes and bilateral parahilar chronic lung changes. D/ / Vlad Linares MD / Vlad Linares MD Interpreting Provider: Vlad Linares MD Consult Discharge Plan - Plan Referrals: NONE,PCP [Primary Care Provider] -
[2017-07-14] MEDS: levETIRAcetam 500 MG/5 ML UDC PO SCH ×2 (13:03→23:37)
[2017-07-14] MEDS ORDERED: *HR* HYDROcodone/Acet 5/325 mg TABLET PO PRN (15:42)
--- NOTE | 2017-07-14 15:42 | Internal Med Progress Note ---
Date of Encounter: 07/14/17 Time of Encounter: 15:41 - Assessment and plan (1) Esophageal stricture Current Visit: Yes Status: Acute Assessment and plan: s/p EGD 07/09 Biopsies taken, EGD stents placement on 07/12, patient tolerated procedure, but developed abdominal pain since then unalbe to tolerate diet, He had the stent placement for his esophageal stricture and can complaining of epigastric pain on and off. He is somewhat tolerating diet. With the stent pain is somewhat expected. Added added oral opioids for pain control for now. Had probably weight loss associated with this expect to improve. Also has anemia which is somewhat chronic probably due to poor oral intake. If his abdominal pain is stable probably could be discharged tomorrow. (2) Weight loss Current Visit: Yes Status: Acute (3) Hypokalemia Current Visit: Yes Status: Acute Assessment and plan: His potassium is 3.3 and being replaced. (4) Anemia Current Visit: No Status: Acute Assessment and plan: His anemia is somewhat chronic. Hemoglobin 9.5. Recommend outpatient follow- up with CBC. Qualifiers: Anemia type: unspecified type Qualified Code(s): D64.9 - Anemia, unspecified (5) Hypotension Current Visit: Yes Status: Acute Qualifiers: Hypotension type: idiopathic hypotension Qualified Code(s): I95.0 - Idiopathic hypotension - Subjective Interval history: He had stent placement for esophageal stricture. His blood pressure has been low. Has received IV fluids. It is improving. For last 1 hour states that he has been having epigastric/upper abdominal pain is on pureed diet. He wants to make sure his abdominal pain is better before he goes home. Is not having any vomiting. No hematemesis. No melena. He is on soft/pureed diet. No chest pain or shortness of breath at rest. - Constitutional Vitals: Temp Pulse Resp BP Pulse Ox 98.4 F 54 14 105/60 95 07/14/17 12:24 07/14/17 12:24 07/14/17 12:24 07/14/17 12:24 07/14/17 12:24 General appearance: Present: cachectic, A&O X 2, no acute distress Exam: Chronically ill-looking middle-aged male. Has pallor. No cyanosis or jaundice. Neck without any cervical or supraclavicular lymphadenopathy. CVS S1-S2 regular. Could not hear any murmur. Respiratory system decreased and a bilaterally no crepitations or rhonchi. Abdomen, no distention has epigastric tenderness did not have any hepato megaly. No masses felt. Extremities no edema. No calf tenderness. 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
[2017-07-14] MEDS: *HR* OxyCODONE/APAP 5/325 TABLET PO PRN (17:51)
[2017-07-14] MEDS ORDERED: *HR* OxyCODONE/APAP 5/325 TABLET PO ONE (19:31)
[2017-07-15] MEDS: *HR* Morphine 2 MG/ML SYRINGE IVP PRN ×2 (00:44→22:02)
[2017-07-15] MEDS: Insulin LISPRO 300 UNITS/3 ML VIAL SQ SCH ×3 (08:47→17:58)
[2017-07-15] MEDS: Aspirin Enteric Coated 81 MG Tablet PO SCH (08:49)
[2017-07-15] MEDS: Sucralfate 1 GM TABLET PO SCH ×4 (08:49→21:49)
[2017-07-15] MEDS ORDERED: Magnesium Sulfate 2 GM in D5% in Water 100 ML IVPB ONE (11:33)
[2017-07-15] MEDS: Hyoscyamine SL 0.125 MG TAB.SUBL SL PRN ×2 (12:50→17:58)
[2017-07-15] MEDS: levETIRAcetam 500 MG/5 ML UDC PO SCH ×2 (12:50→21:49)
--- NOTE | 2017-07-15 16:23 | Internal Med Progress Note ---
Date of Encounter: 07/15/17 Time of Encounter: 16:23 - Assessment and plan (1) Esophageal stricture Current Visit: Yes Status: Acute Assessment and plan: per hx. symptomatic with 2-3 months of intermittent regurgitation of undigested food. Follows with Dr. Dukes. S/p EGD 07/09/2017 with severe she will stricture and food residue; status post dilation and stent placement. Biopsies pending. Has had intermittent abdominal pain and poor PO intake since EGD. Abdominal pain appears to be improved on 07/15 exam however he still has little oral intake. Continue to encourage and sure, pureed diet. Patient can be discharged when he is adequately taking an oral intake. Concerned he may require alternate source of nutrition if he continues with poor by mouth intake. (2) Anemia Current Visit: No Status: Acute Assessment and plan: His anemia is somewhat chronic. Hemoglobin 9.5. Recommend outpatient follow- up with CBC. Qualifiers: Anemia type: unspecified type Qualified Code(s): D64.9 - Anemia, unspecified (3) Hypotension Current Visit: Yes Status: Acute Assessment and plan: Patient has chronic hypotension, asymptomatic. No tachycardia. Suspect secondary to poor by mouth intake. Has intermittently required bolus. BP soft/ borderline 07/15 however except we will. Continue to encourage by mouth intake. Recommend IV fluids bolus PRN for SBP less than 90 Qualifiers: Hypotension type: idiopathic hypotension Qualified Code(s): I95.0 - Idiopathic hypotension (4) Weight loss Current Visit: Yes Status: Acute Assessment and plan: secondary to poor oral intake and esophageal strictures. Consult dietitian for further recommendations. (5) Seizure Current Visit: Yes Status: Acute Assessment and plan: per hx. Cont home keppra (6) DVT prophylaxis Current Visit: No Status: Acute Assessment and plan: heparin - Subjective Interval history: Seen and examined at bedside, patient is new to me. Information obtained from chart review and patient report. Patient's that he does not feel well, does not know why. Unable to give details. No chest pain, no shortness of breath, no abdominal pain, no nausea vomiting or diarrhea. Says he does not have much of an appetite. - Constitutional Vitals: Temp Pulse Resp BP Pulse Ox 98.8 F 57 12 98/54 96 07/15/17 12:41 07/15/17 12:41 07/15/17 12:41 07/15/17 13:30 07/15/17 12:41 General appearance: Present: cachectic, A&O X 2, no acute distress - Head Head exam: Present: atraumatic, normocephalic - Eye Eye exam: Present: PERRL, conjuntiva pink, sclera anicteric Pupils: Present: PERRL - Neck Neck exam general surgery: Present: supple, trachea midline. Absent: lymphadenopathy - Respiratory Respiratory exam: Present: CTAB. Absent: accessory muscle use, rales, rhonchi, wheezes - Cardiovascular Cardiovascular exam: Present: RRR, +S1, +S2. Absent: diastolic murmur, gallop, rubs, systolic murmur - GI/Abdominal GI/Abdominal exam: Present: normal bowel sounds, soft, no peritoneal signs. Absent: distended, tenderness - Extremities Exam Extremities exam: Present: warm, radial pulses palpable and symmetrical. Absent : calf tenderness, cyanotic, pedal edema - Neurological Exam Neurological exam: Present: CN II-XII intact, oriented X3, no focal deficits. Absent: pronater drift, facial droop, speech deficit - Skin Skin exam: Present: dry, intact Internal Medicine: Result - Labs CBC & Chem 7: 07/12/17 04:19 07/14/17 06:27 Consult Discharge Plan - Plan Referrals: NONE,PCP [Primary Care Provider] -
[2017-07-15] MEDS: *HR* Heparin 5,000 UNIT/ML VIAL SQ SCH (18:05)
[2017-07-15] MEDS: 0.9 % Sodium Chloride 500 ML IVC SCH ×3 (23:29→23:42)
[2017-07-16] MEDS: *HR* Morphine 2 MG/ML SYRINGE IVP PRN ×4 (03:39→22:03)
[2017-07-16] MEDS: *HR* Heparin 5,000 UNIT/ML VIAL SQ SCH ×2 (05:46→17:12)
--- NOTE | 2017-07-16 05:53 | Event Note ---
Date of Encounter: 07/16/17 Time of Encounter: 05:47 Called by RN for patient complaints of severe epigastric pain now. He is S/P esophageal dilation for esophageal stricture. I ordered STAT labs and STAT AAS to rule out free air in the abdomen. I assessed patient. He does have some epigastric pain, but his exam does not correlate with the degree of pain he describes. However, his bowel sounds are diminished. I asked his RN to keep patient npo, start IVF, and to follow up on labs/Xray with me or daytime hospitalist. Pending his results, he may need surgical consultation.
[2017-07-16 06:06] LABS: Basophils % 0.6 %; Eosinophils # 0.4 K/mcL (0.0-0.6); Eosinophils % 5.4 %; Hematocrit 30.6 % (37.5-50.1); Immature Granulocytes % 0.3 % (0-4); Lymphocytes # 2.7 K/mcL (0.6-4.6); Lymphocytes % 37.9 %; Mean Corpuscular HGB Conc 32.7 g/dL (31.6-35.5); Mean Corpuscular Hemoglobin 27.9 pg (28.0-33.3); Mean Corpuscular Volume 85.5 fL (83.0-100.0); Monocytes # 0.5 K/mcL (0.0-1.3); Monocytes % 7.5 %; Neutrophils # 3.4 K/mcL (1.6-8.9); Platelet Count 160 K/mcL (140-400); Red Blood Count 3.58 M/mcL (4.19-5.50); Red Cell Distribution Width 12.9 % (11.5-14.5); Segmented Neutrophils % 48.3 %
[2017-07-16 06:07] LABS: Alanine Aminotransferase 8 Units/L (7-52); Albumin/Globulin Ratio 1.5 (1.1-2.2); Alkaline Phosphatase 69 Units/L (34-104); Aspartate Amino Transferase 10 Units/L (13-39); BUN/Creatinine Ratio 14 (6-26); Bilirubin,Total 0.4 mg/dL (0.3-1.0); Blood Urea Nitrogen 8 mg/dL (6-20); Calcium 8.3 mg/dL (8.6-10.3); Carbon Dioxide 27 mEq/L (23-29); Chloride 106 mEq/L (98-107); Glucose 159 mg/dL (70-105); Osmolality,Calculated 286 (280-300); Sodium 137 mEq/L (136-145); eGFR For African Americans > 60 (> 60); eGFR For Non-African Americans > 60 (> 60)
[2017-07-16 06:14] LABS: INR 1.1; Prothrombin Time 11.7 Seconds (9.4-12.1)
[2017-07-16 06:17] LABS: Activated Partial Thrombo Time 36.7 Seconds (26.0-36.0)
[2017-07-16] MEDS: Insulin LISPRO 300 UNITS/3 ML VIAL SQ SCH ×3 (08:46→17:08)
[2017-07-16] MEDS: Sucralfate 1 GM TABLET PO SCH ×4 (08:47→22:03)
[2017-07-16] MEDS: Aspirin Enteric Coated 81 MG Tablet PO SCH (08:47)
[2017-07-16] MEDS: levETIRAcetam 500 MG/5 ML UDC PO SCH ×2 (08:49→22:04)
--- NOTE | 2017-07-16 11:07 | Gastroenterology Progress Note ---
Date of Encounter: 07/16/17 Time of Encounter: 10:50 - Assessment and plan (1) Esophageal stricture Current Visit: Yes Status: Acute Assessment and plan: Esophageal stent placed 07/12/2017. Will obtain CT chest today to evaluate. (2) Constipation Current Visit: Yes Status: Acute Assessment and plan: Acute abdominal series with nonobstructive gas pattern and large volume of stool. Will change Miralax from PRN to scheduled. Qualifiers: Constipation type: unspecified constipation type Qualified Code(s): K59.00 - Constipation, unspecified (3) Weight loss Current Visit: Yes Status: Acute - Time Spent With Patient Total time spent is greater than 50% in coordination of care (as documented) at patient's floor/unit and/or counseling patient: - Subjective Interval history: Pt reports continued pain with esophageal stent, but states it seems to be improving. No abdominal pain, nausea, vomiting. Acute abdominal series overnight showed nonobstructive gas pattern and large volume of stool. Pt states he has not had a BM in "several days". - Constitutional Vitals: Temp Pulse Resp BP Pulse Ox 98.3 F 44 18 102/63 95 07/16/17 08:03 07/16/17 08:03 07/16/17 08:03 07/16/17 08:03 07/16/17 08:03 General appearance: Present: cooperative, A&O X 3, no acute distress, answers questions appropriately - Head Head exam: Present: atraumatic, normocephalic - Eye Eye exam: Present: normal appearance, sclera anicteric - ENT ENT exam: Present: mucous membranes dry - Neck Neck exam general surgery: Present: normal inspection, trachea midline - Respiratory Respiratory exam: Present: CTAB. Absent: rales, rhonchi - Cardiovascular Cardiovascular exam: Present: RRR, +S1, +S2 - GI/Abdominal GI/Abdominal exam: Present: soft, no peritoneal signs. Absent: distended, firm , guarding, tenderness - Rectal Rectal exam: Present: deferred - Extremities Exam Extremities exam: Present: warm - Neurological Exam Neurological exam: Present: no focal deficits - Psychiatric Psychiatric exam: Present: normal affect, normal mood - Skin Skin exam: Present: dry, intact, normal color, warm Results - Labs CBC & Chem 7: 07/16/17 05:48 07/16/17 05:48 Labs: Last Result Calcium 8.3 mg/dL (8.6-10.3) L 07/16/17 05:48 Entire Visit Hgb 10.0 g/dL (12.9-16.9) L 07/16/17 05:48 Hct 30.6 % (37.5-50.1) L 07/16/17 05:48 PT 11.7 Seconds (9.4-12.1) 07/16/17 05:48 Total Bilirubin 0.4 mg/dL (0.3-1.0) 07/16/17 05:48 AST 10 Units/L (13-39) L 07/16/17 05:48 ALT 8 Units/L (7-52) 07/16/17 05:48 Lipase < 3 Units/L (11-82) L 07/06/17 16:59 - ABG ABG results: PT/INR, D-dimer PT 11.7 Seconds (9.4-12.1) 07/16/17 05:48 - Impressions Impressions Chest/Abdomen X-ray 07/16/17 05:32 IMPRESSION: Nonobstructive gas pattern with a large volume of stool in the colon. D/ / Claudio Jain MD / Claudio Jain MD Interpreting Provider: Claudio Jain MD Consult Discharge Plan - Plan Referrals: NONE,PCP [Primary Care Provider] -
--- NOTE | 2017-07-16 15:56 | Internal Med Progress Note ---
Date of Encounter: 07/16/17 Time of Encounter: 15:52 - Assessment and plan (1) Esophageal stricture Current Visit: Yes Status: Acute Assessment and plan: per hx. symptomatic with 2-3 months of intermittent regurgitation of undigested food. Follows with Dr. Dukes. S/p EGD 07/09/2017 with severe esophageal stricture and food residue; status post dilation and stent placement. Biopsies pending. Has had intermittent abdominal pain and poor PO intake since EGD. Abdominal pain appears to wax and wane from no abdominal pain to severe abdominal pain. KUB showed nonobstructive gas pattern with large volume of stool in colon. MiraLAX changed from PRN to scheduled. Continues to have poor PO intake ; patient does not like. Diet. Concerned he may need alternate source of tube feeding if he is unable to meet caloric needs. Needs accurate recount. Discussed with dietitian on 07/16. GI following. (2) Anemia Current Visit: No Status: Acute Assessment and plan: Suspect anemia of chronic disease. Hemoglobin 10 however Hgb was 14 on . No active bleeding. Check occult stool. Continue PPI. Monitor repeat CBC Qualifiers: Anemia type: unspecified type Qualified Code(s): D64.9 - Anemia, unspecified (3) Hypotension Current Visit: Yes Status: Acute Assessment and plan: appears to have chronic hypotension, asymptomatic. No tachycardia. Suspect secondary to poor PO intake. Has intermittently required bolus. BP soft/ borderline however overall acceptable. Continue to encourage PO intake. IV fluids bolus PRN for SBP less than 90 Qualifiers: Hypotension type: idiopathic hypotension Qualified Code(s): I95.0 - Idiopathic hypotension (4) Weight loss Current Visit: Yes Status: Acute Assessment and plan: secondary to poor oral intake and esophageal strictures. Consult dietitian for further recommendations. (5) Seizure Current Visit: Yes Status: Acute Assessment and plan: per hx. Cont home keppra (6) DVT prophylaxis Current Visit: No Status: Acute Assessment and plan: heparin - Subjective Interval history: Seen and examined at bedside. No acute changes and exam to report. Patient denies abdominal pain, + flatus. Still not eating much; states he does not like to pureed diet. Says he is hungry but cannot eat pureed food. He has been trying to drink ensure. - Constitutional Vitals: Temp Pulse Resp BP Pulse Ox 97.8 F 45 18 107/59 95 07/16/17 11:29 07/16/17 11:29 07/16/17 11:29 07/16/17 11:29 07/16/17 11:29 General appearance: Present: cachectic, A&O X 2, no acute distress - Head Head exam: Present: atraumatic, normocephalic - Eye Eye exam: Present: PERRL, conjuntiva pink, sclera anicteric Pupils: Present: PERRL - Neck Neck exam general surgery: Present: supple, trachea midline. Absent: lymphadenopathy - Respiratory Respiratory exam: Present: CTAB. Absent: accessory muscle use, rales, rhonchi, wheezes - Cardiovascular Cardiovascular exam: Present: RRR, +S1, +S2. Absent: diastolic murmur, gallop, rubs, systolic murmur - GI/Abdominal GI/Abdominal exam: Present: normal bowel sounds, soft, no peritoneal signs. Absent: distended, tenderness - Extremities Exam Extremities exam: Present: warm, radial pulses palpable and symmetrical. Absent : calf tenderness, cyanotic, pedal edema - Neurological Exam Neurological exam: Present: CN II-XII intact, oriented X3, no focal deficits. Absent: pronater drift, facial droop, speech deficit - Skin Skin exam: Present: dry, intact Internal Medicine: Result - Labs CBC & Chem 7: 07/16/17 05:48 07/16/17 05:48 Labs: Short CBC 07/16/17 Range/Units 05:48 WBC 7.1 D (4.3-11.1) K/mcL Hgb 10.0 L (12.9-16.9) g/dL Hct 30.6 L (37.5-50.1) % Plt Count 160 (140-400) K/mcL Neutrophils # 3.4 (1.6-8.9) K/mcL BMP 07/16/17 05:48 Sodium 137 Potassium 4.0 Chloride 106 Carbon Dioxide 27 BUN 8 Creatinine 0.57 L Glucose 159 H Calcium 8.3 L Liver Function 07/16/17 Range/Units 05:48 Total Bilirubin 0.4 (0.3-1.0) mg/dL AST 10 L (13-39) Units/L ALT 8 (7-52) Units/L Alkaline Phosphatase 69 (34-104) Units/L Albumin 3.0 L (3.5-5.7) g/dL - ABG Interpretation ABG results: PT/INR, D-dimer PT 11.7 Seconds (9.4-12.1) 07/16/17 05:48 - Impressions Impressions Chest/Abdomen X-ray 07/16/17 05:32 IMPRESSION: Nonobstructive gas pattern with a large volume of stool in the colon. D/ / Claudio Jain MD / Claudio Jain MD Interpreting Provider: Claudio Jain MD Chest CT 07/16/17 13:00 IMPRESSION: 1. Interval placement of an esophageal stent. The distal portion of the esophageal lumen contains mixed attenuation material which may represent a combination of soft tissue and/or fluid. 2. Partially loculated small right pleural effusion and small left pleural effusion with compressive atelectasis of the left lower lobe and right lower lobe. 3. Severe emphysema with bullous disease. D/ / 07/16/2017 14:46:04 Darius Dooley MD / mika Interpreting Provider: Darius Dooley MD Consult Discharge Plan - Plan Referrals: NONE,PCP [Primary Care Provider] -
[2017-07-16] MEDS ORDERED: 0.9 % Sodium Chloride 1,000 ML IVC ONE (17:20)
[2017-07-16] MEDS: *HR* OxyCODONE/APAP 5/325 TABLET PO PRN (17:38)
[2017-07-16] MEDS: Melatonin 3 MG TABLET PO PRN (22:05)
[2017-07-17] MEDS: *HR* Heparin 5,000 UNIT/ML VIAL SQ SCH (05:59)
[2017-07-17] MEDS: Sucralfate 1 GM TABLET PO SCH ×2 (08:35→11:39)
[2017-07-17] MEDS: Aspirin Enteric Coated 81 MG Tablet PO SCH (08:36)
[2017-07-17] MEDS: *HR* OxyCODONE/APAP 5/325 TABLET PO PRN (08:38)
[2017-07-17] MEDS: Insulin LISPRO 300 UNITS/3 ML VIAL SQ SCH ×2 (08:40→12:21)
[2017-07-17] MEDS: levETIRAcetam 500 MG/5 ML UDC PO SCH (11:39)
[2017-07-17 12:16] VITALS: BP 96/60
--- NOTE | 2017-07-17 13:44 | Discharge Summary ---
Date of Encounter: 07/17/17 Time of Encounter: 13:42 - Discharge Diagnosis (1) Esophageal stricture Priority: Primary Status: Acute Comments: per hx. symptomatic with 2-3 months of intermittent regurgitation of undigested food. Follows with Dr. Dukes. S/p EGD 07/09/2017 with severe esophageal stricture and food residue; status post dilation and stent placement. Biopsies pending. Has had intermittent abdominal pain and poor PO intake since EGD. Abdominal pain appears to wax and wane from no abdominal pain to severe abdominal pain. KUB showed non-obstructive gas pattern with large volume of stool in colon (had satisfactory BM prior to discharge with scheduling MiraLAX). Follow- up chest CT with interval placement of an esophageal stent. PO intake improved when diet upgraded to mechanical soft/esophageal stent diet per GI. Continue PPI, Carafate. Follow-up with GI in 2 weeks. (2) Anemia Priority: Primary Status: Chronic Comments: Suspect anemia of chronic disease. Hemoglobin 10 (previously 14 on 07/06/17). No active bleeding. Occult stool ordered but not obtained. Continue PPI. Recommend repeat CBC and iron studies with PCP. Qualifiers: Anemia type: unspecified type Qualified Code(s): D64.9 - Anemia, unspecified (3) Hypotension Priority: Primary Status: Acute Comments: appears to have chronic hypotension, asymptomatic. No tachycardia. Suspect secondary to protein calorie malnutrition and hypoalbumin. Intermittently required IV bolus. BP soft/borderline however overall acceptable. Continue to encourage PO intake. Recommend follow-up with PCP within one week for BP recheck Qualifiers: Hypotension type: idiopathic hypotension Qualified Code(s): I95.0 - Idiopathic hypotension (4) Weight loss Priority: Primary Status: Acute Comments: In the setting of poor oral intake secondary to esophageal strictures. PO intake increasing as diet is advanced. Suspect weight will improve as well. Can be monitored outpatient per PCP and/or GI (5) Seizure Priority: Secondary Status: Chronic Comments: per hx. Cont home Keppra - Discharge Medications Prescriptions: Omeprazole [PriLOSEC] 40 mg PO BIDAC #30 capsule. Sucralfate [Carafate] 1 gm PO QID #120 udc Home Medications: Insulin LISPRO [HumaLOG] 1 - 5 units SQ ACHS 05/10/16 [History] Aspirin [Lo-Dose Aspirin EC] 81 mg PO DAILY 06/28/16 [History] Lipase/Protease/Amylase [Jatin Richards 12,000 Units Capsule] 1 cap PO TIDAC 06/28/16 [History] Insulin Glargine,Hum.rec.anlog [Lantus Solostar] 14 unit SQ HS 09/11/16 [History ] Acetaminophen [Tylenol] 650 mg PO Q4HR PRN 04/24/17 [History] Atorvastatin [Lipitor] 40 mg PO HS 04/24/17 [History] LevETIRAcetam [Keppra] 750 mg PO BID 04/24/17 [History] Melatonin [Melatin] 9 mg PO HS 04/24/17 [History] Mv-Mn/FA/Vit K/Lycop/Lut/Coq10 [Daily Multivitamin Capsule] 1 tab PO DAILY 04/24 [History] Ondansetron [Zofran] 8 mg PO Q6H PRN 04/24/17 [History] Pantoprazole Sodium 40 mg PO QPM 04/24/17 [History] Polyethylene Glycol 3350 [MiraLAX] 17 gm PO QPM 04/24/17 [History] Sennosides/Docusate Sodium [Senna Plus] 2 each PO BID 04/24/17 [History] Sertraline [Zoloft] 50 mg PO QPM 04/24/17 [History] Insulin LISPRO [HumaLOG] 14 unit SQ TIDWM 07/08/17 [History] Potassium Chloride [Klor-Con 10] 10 meq PO BID 07/08/17 [History] Omeprazole [PriLOSEC] 40 mg PO BIDAC #30 capsule. 07/17/17 [Rx] Sucralfate [Carafate] 1 gm PO QID #120 udc 07/17/17 [Rx] Allergies/Adverse Reactions: 3 Allergy/AdvReac Type Severity Reaction Status Date / Time No Known Allergies Allergy Verified 07/06/17 16:18 Procedures/tests Complete & Pending: Procedures Performed prior 72 hours Category Date Time Status CT chest w con [CT] Routine Cat Scan 07/16/17 13:00 Draft Date of admission: 07/06/17 20:05 Primary care physician: PCP NONE Consults: 07/06/17 20:22 Consult to Gastroenterology [CONS] Routine Consulting Provider: Gastroenterology Sheri Reason for Consult: hx of esophageal stricture Call Completed: Yes 07/06/17 20:58 Consult to Shoe Cleaner [CONS] Routine Reason for SW Consult: dc planning, form ECF 07/06/17 23:55 Consult to Speech Therapy [CONS] Routine Comment: Evaluate, develop and implement POC Reason for Consult: difficulty swallowing some foods like meat, reports occasionally coughing it up at home at in the hospital Call Completed: No 07/14/17 08:46 Consult to Nutrition [CONS] Routine Comment: Consulting Provider: NUTRITION Reason for Dietary Consult: Other Other:: Calorie count Discharging clinician: Griselda Henriquez Anticipated date of discharge: 07/17/17 - Patient Status Disposition: Home, Self-Care Condition: Good Overall status at discharge: patient is back to baseline - Discharge Instructions Instructions: Esophageal Stricture (DC) Follow Up With: NONE,PCP [Primary Care Provider] - - Diet and Activity Activity: increase activity as tolerated Diet: other (Please follow esophageal diet per the directions provided to you) Interval History: Seen and stamina bedside. He seems significantly improved. Diet was advanced to mechanical soft per GI and she is consuming more food at breakfast and lunch. He was up ambulating the hallways. Says he had a satisfactory bowel movement yesterday. He has no complaints and would like to discharge home today if possible. Discussed with GI and okay to discharge home from GI standpoint; patient is to remain on esophageal stent diet until seen at follow- up. Hospital course: See assessment and plan for hospital course - Time Spent with Patient Total time spent providing and/or coordinating discharge services: - Constitutional Vitals: Temp Pulse Resp BP Pulse Ox 97.7 F 89 16 96/60 94 07/17/17 12:10 07/17/17 12:10 07/17/17 12:10 07/17/17 12:10 07/17/17 12:10 General appearance: Present: cachectic, A&O X 2, no acute distress - Head Head exam: Present: atraumatic, normocephalic - Eye Eye exam: Present: PERRL, conjuntiva pink, sclera anicteric Pupils: Present: PERRL - Neck Neck exam general surgery: Present: supple, trachea midline. Absent: lymphadenopathy - Respiratory Respiratory exam: Present: CTAB. Absent: accessory muscle use, rales, rhonchi, wheezes - Cardiovascular Cardiovascular exam: Present: RRR, +S1, +S2. Absent: diastolic murmur, gallop, rubs, systolic murmur - GI/Abdominal GI/Abdominal exam: Present: normal bowel sounds, soft, no peritoneal signs. Absent: distended, tenderness - Extremities Exam Extremities exam: Present: warm, radial pulses palpable and symmetrical. Absent : calf tenderness, cyanotic, pedal edema - Neurological Exam Neurological exam: Present: CN II-XII intact, oriented X3, no focal deficits. Absent: pronater drift, facial droop, speech deficit - Skin Skin exam: Present: dry, intact
--- NOTE | 2017-07-17 15:06 | Physician Discharge Referral ---
[facility] Referral Info Transfer To: [facility] Provider in Charge: Griselda Henriquez CNP Provider in Charge after Transfer: PCP Institutional Level of Care: Skilled - Diagnosis (1) Esophageal stricture Status: Acute (2) Anemia Status: Chronic (3) Hypotension Status: Acute (4) Weight loss Status: Acute (5) Seizure Status: Chronic - Transfer Medications Prescriptions: Omeprazole [PriLOSEC] 40 mg PO BIDAC #30 capsule. Sucralfate [Carafate] 1 gm PO QID #120 udc Home Medications: Insulin LISPRO [HumaLOG] 1 - 5 units SQ ACHS 05/10/16 [History] Aspirin [Lo-Dose Aspirin EC] 81 mg PO DAILY 06/28/16 [History] Lipase/Protease/Amylase [Jatin Richards 12,000 Units Capsule] 1 cap PO TIDAC 06/28/16 [History] Insulin Glargine,Hum.rec.anlog [Lantus Solostar] 14 unit SQ HS 09/11/16 [History ] Acetaminophen [Tylenol] 650 mg PO Q4HR PRN 04/24/17 [History] Atorvastatin [Lipitor] 40 mg PO HS 04/24/17 [History] LevETIRAcetam [Keppra] 750 mg PO BID 04/24/17 [History] Melatonin [Melatin] 9 mg PO HS 04/24/17 [History] Mv-Mn/FA/Vit K/Lycop/Lut/Coq10 [Daily Multivitamin Capsule] 1 tab PO DAILY 04/24 [History] Ondansetron [Zofran] 8 mg PO Q6H PRN 04/24/17 [History] Pantoprazole Sodium 40 mg PO QPM 04/24/17 [History] Polyethylene Glycol 3350 [MiraLAX] 17 gm PO QPM 04/24/17 [History] Sennosides/Docusate Sodium [Senna Plus] 2 each PO BID 04/24/17 [History] Sertraline [Zoloft] 50 mg PO QPM 04/24/17 [History] Insulin LISPRO [HumaLOG] 14 unit SQ TIDWM 07/08/17 [History] Potassium Chloride [Klor-Con 10] 10 meq PO BID 07/08/17 [History] Omeprazole [PriLOSEC] 40 mg PO BIDAC #30 capsule. 07/17/17 [Rx] Sucralfate [Carafate] 1 gm PO QID #120 [facility] [place] [Rx] Allergies/Adverse Reactions: 3 Allergy/AdvReac Type Severity Reaction Status Date / Time No Known Allergies Allergy Verified 07/06/17 16:18 - Respiratory Orders None Smoking Cessation: Smoking cessation has been advised. For more information, call the [place] Tobacco Quit Line at 1-392-WYOJ-NOW. - Advance Directives Code Status: Full Code - Mobility Orders Ambulate - Rehabiliation Orders Rehab Potential: Good Rehab Orders: Evaluation for Physical Therapy, Evaluation for Occupational Therapy, Evaluation for Speech Therapy - Diet Orders Mechanical Soft (Esophageal stricture diet) CERTIFICATION: I certify that the transfer of the above named patient to an Extended Care Facility is necessary for the continuing treatment of the diagnosis listed. The above information is true and accurate reflection of patient's current condition. Confidential - Redisclosure prohibited without a patient's written consent.
== END 2017-07-17 16:15 ==
LOC: 3BNU 16:14 → EMEROO 16:14 → SUATTDRO 20:05 → 3BNU 20:36
PROVIDERS: ADMIT Internal Medicine Hematology & Oncology; ATTEND Hospitalist
PROC: ENDOORB (2017-07-09 13:00)